=== PATIENT | female | born 1960 ===

== ENCOUNTER 2018-06-16 08:28 | Observation (INO) | payer SELFPAY ==
[2018-06-16] MEDS ORDERED: Albuterol/Ipratropium NEB.SOL* Albuterol 2.5 MG/Ipratropium 0.5 MG 3 ML INH ONE (08:53)
[2018-06-16] MEDS ORDERED: Dexamethasone IV* 8 MG in NS 0.9% 50 ML* 50 ML IVPB ONE ×2 (08:55→10:00)
[2018-06-16] MEDS ORDERED: Dexamethasone IV* 8 MG in NS 0.9% 50 ML* 50 ML IVPB SCH (09:00)
--- NOTE | 2018-06-16 09:03 | ED ---
HPI Chest Pain - HPI Summary HPI Summary: Pt is a 57 y/o female who presents to [facility] c/o SOB and CP since 2 AM this morning. History is given by the patients sister, since her [place] is limited. As per sister, she feels SOB, chest tightness, chest pain, and dry cough. Her pain is described as an 8/10 in severity. In the past few days, she has also c/o intermittent fever and pressure in the back of her head. Pt states that her inhaler is not helping her symptoms. Pt currently has cancer of her left breast, and states it feels like her pain has moved to her nipple. She is taking chemotherapy pills, and states that this chest pain feels different than her normal breast pain. Pt was recently on antibiotics for a URI. PMHx CHF, DM, and stage 4 kidney disease. She denies any PMHx of blood clots. Her sister states her blood sugar has been good the past few days. - History of Current Complaint Chief Complaint: EDShortnessOfBreath Time Seen by Provider: 06/16/18 08:39 Hx Obtained From: Patient, Family/Diamond Driller Helper - Sister Onset/Duration: Started Hours Ago - 2 AM, Still Present Timing: Constant Current Severity: Severe Pain Intensity: 8 Pain Scale Used: 0-10 Numeric Chest Pain Location: Diffuse Chest Pain Radiates: No Character: Tightness Aggravating Factor(s): Nothing Alleviating Factor(s): Nothing Associated Signs and Symptoms: Positive: Chest Pain, Shortness of Breath, Nonproductive Cough - Allergy/Home Medications Allergies/Adverse Reactions: Allergies Allergy/AdvReac Type Severity Reaction Status Date / Time Penicillins Allergy Rash Verified 06/16/18 08:35 iodine Allergy Rash And Uncoded 06/16/18 08:34 Itching morphine Allergy Anxiety Uncoded 06/16/18 08:34 Home Medications: Home Medications ALPRAZolam TAB* [Xanax TAB*] 0.25 mg PO DAILY 06/16/18 [History Confirmed ] Aspirin EC TAB* [Ecotrin EC Low Dose 81 MG*] 81 mg PO DAILY 06/16/18 [History Confirmed 06/16/18] Atorvastatin* [Lipitor*] 40 mg PO DAILY 06/16/18 [History Confirmed 06/16/18] Carvedilol TAB* [Coreg TAB*] 12.5 mg PO BID WITH MEALS 06/16/18 [History Confirmed 06/16/18] Ergocalciferol CAP* [Drisdol CAP*] 50,000 unit PO DAILY 06/16/18 [History Confirmed 06/16/18] Furosemide TAB* [Lasix TAB*] 40 mg PO DAILY 06/16/18 [History Confirmed 06/16/18 ] Letrozole (NF) [Femara (NF)] 2.5 mg PO DAILY 06/16/18 [History Confirmed ] Losartan TAB* [Cozaar TAB*] 25 mg PO DAILY 06/16/18 [History Confirmed 06/16/18] amLODIPine TAB* [Norvasc 5 mg TAB*] 5 mg PO DAILY 06/16/18 [History Confirmed ] oxyCODONE/Acetamin 5/325 MG* [Percocet 5/325 TAB*] 1 tab PO Q6H PRN 06/16/18 [ History Confirmed 06/16/18] traMADol TAB* [Ultram*] 50 mg PO DAILY PRN 06/16/18 [History Confirmed 06/16/18] PMH/Surg Hx/FS Hx/Imm Hx Endocrine/Hematology History: Reports: Hx Diabetes, Other Endocrine/ Hematological Disorders - NEGATIVE: blood clot Cardiovascular History: Reports: Hx Congestive Heart Failure History: Reports: Hx Renal Disease - Stage 4 - Cancer History Cancer Type, Location and Year: Breast cancer (left) Infectious Disease History: No Infectious Disease History: Denies: Traveled Outside the [place] in Last 30 Days - Family History Known Family History: Positive: Other - Cancer - breast, lung, pancreatic - Social History Alcohol Use: Rare Hx Substance Use: No Substance Use Type: Reports: None Hx Tobacco Use: No Smoking Status (MU): Never Smoked Tobacco Review of Systems Positive: Fever - Intermittent, Other - Pressure in back of head Positive: Chest Pain, Other - Chest tightness Positive: Shortness Of Breath, Cough - Dry Positive: Other - Left nipple pain All Other Systems Reviewed And Are Negative: Yes Physical Exam - Summary Physical Exam Summary: GENERAL: Patient is a well developed and nourished F who is lying uncomfortable in the stretcher. Patient is not in any acute respiratory distress. HEAD AND FACE: Normocephalic EYES: PERRLA, EOMI x 2. EARS: Hearing grossly intact. MOUTH: Oropharynx within normal limits. NECK: Supple, trachea is midline, no adenopathy, no JVD, no carotid bruit. CHEST: Symmetric, no tenderness at palpation LUNGS: Mild diffuse expiratory wheezes. Decreased breath sounds in bilateral bases, right > left. CVS: Regular rate and rhythm, S1 and S2 present, no murmurs or gallops appreciated. ABDOMEN: Soft, non-tender. Bowel sounds are normal. No abdominal abnormal pulsations. EXTREMITIES: Full ROM in all major joints, no cyanosis or clubbing. 2+ bilateral pitting edema. NEURO: Alert and oriented x 3. No acute neurological deficits. Speech is normal and follows commands. SKIN: Dry and warm Triage Information Reviewed: Yes Vital Signs On Initial Exam: Initial Vitals Temp Pulse Resp BP Pulse Ox 98.2 F 74 20 174/73 98 06/16/18 08:30 06/16/18 08:30 06/16/18 08:30 06/16/18 08:30 06/16/18 08:30 Vital Signs Reviewed: Yes Diagnostics - Vital Signs Vital Signs Temp Pulse Resp BP Pulse Ox 06/16/18 08:30 98.2 F 74 20 174/73 98 - Laboratory Result Diagrams: 06/16/18 09:00 06/16/18 09:00 Lab Statement: Any lab studies that have been ordered have been reviewed, and results considered in the medical decision making process. - Radiology CXR Xray Interpretation: No Acute Changes - NO ACTIVE CARDIOPULMONARY DISEASE IS NOTED. ED physician reviewed radiology report. Radiology Interpretation Completed By: Radiologist Lung Scan VQ NM Xray Interpretation: No Acute Changes - VERY LOW PROBABILITY VQ SCAN. ED physician reviewed radiology report. Radiology Interpretation Completed By: Radiologist - Ultrasound No standard instances Ultrasound Interpretation: No Acute Changes - Venous Doppler Study: NO RIGHT LOWER EXTREMITY DEEP VEIN THROMBOSIS. NO LEFT LOWER EXTREMITY DEEP VEIN THROMBOSIS. ED physician reviewed radiology report. Ultrasound Interpretation Completed By: Radiologist - EKG 09:02 Cardiac Rate: NL - 64 bpm EKG Rhythm: Sinus Rhythm ST Segment: Normal EKG Interpretation: No T-wave changes Chest Pain Course/Dx - Course Course Of Treatment: Pt is a 57 y/o female who presents to [facility] c/o SOB and CP since 2 AM this morning. History is given by the patients sister, since her [place] is limited. As per sister, she feels SOB, chest tightness, chest pain, and dry cough. Her pain is described as an 8/10 in severity. In the past few days, she has also c/o intermittent fever and pressure in the back of her head. Pt states that her inhaler is not helping her symptoms. Pt currently has cancer of her left breast, and states it feels like her pain has moved to her nipple. She is taking chemotherapy pills, and states that this chest pain feels different than her normal breast pain. Pt was recently on antibiotics for a URI. A physical exam revealed Mild diffuse expiratory wheezes. Decreased breath sounds in bilateral bases, right > left. 2+ bilateral pitting edema. A CXR was negative. A lung scan VQ NM was negative. A venous Doppler study was negative. An EKG revealed normal rate of 64 bpm and normal rhythm. Final dx is chest pain. Case discussed with Dr. Noe. I discussed results with patient. The patient agrees with this plan. - Diagnoses Provider Diagnoses: Chest pain - Provider Notifications Discussed Care Of Patient With: Nathaniel Noe Time Discussed With Above Provider: 12:30 Instructed by Provider To: Admit As Inpatient Discharge - Sign-Out/Discharge Documenting (check all that apply): Patient Departure - Admit - Discharge Plan Condition: Stable Disposition: ADMITTED TO [facility] - Attestation Statements Document Initiated by Scribe: Yes Documenting Scribe: Natalie Castorena Provider For Whom Scribe is Documenting (Include Credential): Brooklyn Candelario MD Scribe Attestation: Natalie Quiroz, scribed for Brooklyn Candelario MD on 06/16/18 at 1529.
[2018-06-16 09:06] LABS: ABS Basophils 0.1 10^3/ul (0-0.2); ABS Eosinophils 0.4 10^3/ul (0-0.6); ABS Lymphocytes 1.7 10^3/ul (1.0-4.8); ABS Monocytes 0.7 10^3/ul (0-0.8); ABS Neutrophils 6.6 10^3/ul (1.5-7.7); ABS Nucleated RBC 0 10^3/ul; Eosinophil % 4.2 % (0-6); Hematocrit 27 % (35-47); Hemoglobin 9.4 g/dl (12.0-16.0); Lymphocyte % 18.3 % (25-47); Mean Corpuscular HGB Conc 34 g/dl (31-36); Mean Corpuscular Hemoglobin 30 pg (27-31); Mean Corpuscular Volume 88 fL (80-97); Nucleated Red Blood Cells % 0; Platelet Count 299 10^3/ul (150-450); Red Cell Distribution Width 13 % (10.5-15); White Blood Count 9.6 10^3/ul (3.5-10.8)
[2018-06-16] MEDS ORDERED: Dexamethasone IV* 4 MG/ML 1 ML (4 MG) ONE (09:09)
[2018-06-16 09:17] LABS: INR 0.9 (0.77-1.02)
[2018-06-16 09:24] LABS: EGFR Non-African American 27.4 (>60)
--- NOTE | 2018-06-16 09:46 | RAD ---
HISTORY: eval for dvt COMPARISONS: None relevant TECHNIQUE: Multiple transverse and longitudinal ultrasound images were obtained of the bilateral lower extremities from the level of the common femoral vein inferiorly through to the infrapopliteal veins using grayscale, color Doppler, and spectral Doppler imaging with and without compression and with augmentation. FINDINGS: VEINS: The venous system of the bilateral lower extremities is compressible throughout its course, with normal flow on color Doppler imaging and normal response to augmentation on spectral Doppler imaging. SOFT TISSUES: Unremarkable. OTHER FINDINGS: None. IMPRESSION: NO RIGHT LOWER EXTREMITY DEEP VEIN THROMBOSIS. NO LEFT LOWER EXTREMITY DEEP VEIN THROMBOSIS
--- NOTE | 2018-06-16 10:02 | RAD ---
Indication: Shortness of breath. Single frontal view of the chest performed at 0948 hours was reviewed. No prior study is available for comparison. No mediastinal shift is noted. Heart is of normal size and configuration. Lung feltcher appear clear. IMPRESSION: NO ACTIVE CARDIOPULMONARY DISEASE IS NOTED.
[2018-06-16 10:07] LABS: Urine Appearance Clear; Urine Blood Negative (Negative); Urine Color Straw; Urine Ketones Negative (Negative); Urine Protein 2+(100 mg/dL) (Negative); Urine Red Blood Cell Trace(0-2/hpf) (Absent); Urine Specific Gravity 1.006 (1.010-1.030); Urine Urobilinogen Negative (Negative); Urine White Blood Cell 2+(11-20/hpf) (Absent)
--- NOTE | 2018-06-16 11:09 | RAD ---
HISTORY: Chest pain COMPARISON: Chest x-ray dated June 16, 2018 TECHNIQUE: Pulmonary ventilation/perfusion scintigraphy was performed with dynamic cine images and multiple planar images. DOSE: Ventilation: Xenon-133 8.65 millicuries, administered at 10:50 AM on June 16, 2018 Perfusion: Technetium 99m microaggregated albumin 6.6 millicuries, administered at 10:50 AM on June 16, 2018 FINDINGS: Ventilation: Homogeneous ventilation. Perfusion: Homogeneous perfusion without mass defect. IMPRESSION: VERY LOW PROBABILITY VQ SCAN CPT II Codes: 3570F
[2018-06-16] MEDS ORDERED: Nitroglycerin TAB 0.4 MG* 0.4 MG TAB SL ONE (12:12)
[2018-06-16] MEDS ORDERED: Aspirin 81 mg CHEW TAB* 81 MG TAB.CHEW PO ONE (12:12)
[2018-06-16] MEDS ORDERED: Ondansetron INJ* 2 MG/ML VIAL IV PRN (13:01)
[2018-06-16] MEDS ORDERED: Dextrose 50% Syringe 50 ML* 25 GM/50 ML SYRINGE IV PUSH PRN (13:01)
[2018-06-16] MEDS ORDERED: Furosemide IV* 10 MG/ML VIAL (40 MG) IV SLOW PU ONE (13:01)
[2018-06-16] MEDS ORDERED: traMADol TAB* 50 MG PO PRN (13:05)
--- NOTE | 2018-06-16 13:41 | RAD ---
Indication: Headache. CT of the brain was performed without IV contrast. Ventricular structures are midline. No midline shift is noted. The extra-axial spaces are unremarkable. There is no evidence of intracranial mass or hemorrhage. No other high or low density lesions are identified. Mastoid air cells and paranasal sinuses are unremarkable. IMPRESSION: No intracranial mass or hemorrhage is noted.
--- NOTE | 2018-06-16 14:04 | RAD ---
HISTORY: neck pain COMPARISONS: None TECHNIQUE: Multiple contiguous axial CT scans were obtained of the cervical spine without intravenous contrast, with coronal and sagittal multiplanar reformations. FINDINGS: BRAIN: The visualized brain is unremarkable CENTRAL CANAL: Evaluation of the central canal is limited on CT technique; however, there is no obvious canalicular mass or epidural hemorrhage. ALIGNMENT: The alignment is normal, without subluxation or dislocation. VERTEBRAL BODIES: There is anterolateral marginal osteophyte formation most pronounced at C5-C6 and C6-C7. JOINTS: There is uncovertebral hypertrophy at C5-C6. MUSCULATURE: Unremarkable INTERVERTEBRAL DISCS: There is diffuse loss of intervertebral disc height. AXIAL IMAGES: C2-C3: There is no osseous neural foraminal narrowing or central canal stenosis. C3-C4: There is no osseous neural foraminal narrowing or central canal stenosis. C4-C5: There is no osseous neural foraminal narrowing or central canal stenosis. C5-C6: There is no osseous neural foraminal narrowing or central canal stenosis. C6-C7: There is no osseous neural foraminal narrowing or central canal stenosis. C7-T1: There is no osseous neural foraminal narrowing or central canal stenosis. SOFT TISSUES: The visualized soft tissues of the neck are unremarkable. The prevertebral fat stripe is preserved. OTHER: There is a right pleural effusion. IMPRESSION: 1. MILD DEGENERATIVE DISC DISEASE AND OSTEOARTHRITIS. 2. NO OSSEOUS NEURAL FORAMINAL NARROWING OR CENTRAL CANAL STENOSIS. 3. RIGHT PLEURAL EFFUSION.
[2018-06-16] MEDS: Nitroglycerin 2% OINT* 1 GM PAK TOPICAL SCH (16:08)
[2018-06-16] MEDS: Acetaminophen TAB* 325 MG PO PRN (16:10)
[2018-06-16] MEDS: Insulin LISPRO* 1 UNITS UNIT SUBCUT SCH (17:35)
[2018-06-16] MEDS: Carvedilol TAB* 6.25 MG PO SCH (17:38)
--- NOTE | 2018-06-16 17:51 | RAD ---
CPT II: CPT II Codes: 3100F Indication: Indication for exam is unclear Duplex Doppler sonography of the carotid arteries was performed. The right common carotid artery demonstrates no intimal wall thickening. Minimal plaque is noted in the carotid bulb. Peak systolic velocity of the distal right common carotid artery is 121 cm/s. The systolic velocity of the right proximal internal carotid artery is 98 cm/s. ICA/CC ratio 0.81. Right vertebral artery demonstrates antegrade flow. Left common carotid artery demonstrates no intimal wall thickening. Plaque is noted in the carotid bulb. Peak systolic velocity of the distal left common carotid artery is 100 cm/s. Peak systolic velocity of the left internal carotid artery is 112 cm/s. The ICA/CC ratio is 1.1. Left vertebral artery demonstrates antegrade flow. IMPRESSION: Less than 50% stenosis of both internal carotid arteries. No hemodynamically significant stenosis is noted.
--- NOTE | 2018-06-16 17:58 | ECHO ---
Patient: RUTH ANN BUNDY Rec#: [id number] : 1960 Date: 06/16/2018 Age: 57y Height: 150 cm / 59.1 in Weight: 74 kg / 163.1 lbs Sex: F BSA: 1.69 Room#: [facility] Admit Date#: 06/16/2018 Type: Inpatient Referring: Sohail Blanchard NP Reading: Tiago Glez MD Wire Winder: Radha Dumont,ROSIECS,RDMS CC: BOGDAN ALVA NP Transthoracic Echocardiogram Indication: CHF BP: 166/74 HR: 74 Rhythm: NSR Findings History: Breast cancer, chemptherapy pills, CHF, CKD, DM Technical Comments: The study quality is good. Left Ventricle: The left ventricular chamber size is normal. There is no left ventricular hypertrophy. There is a prominent septal knuckle. Global left ventricular wall motion and contractility are within normal limits. There is normal left ventricular systolic function. The estimated ejection fraction is 55-60%. Abnormal left ventricular diastolic function is observed. Left Atrium: The left atrium is mildly dilated. Right Ventricle: The right ventricular chamber size and systolic function are within normal limits. Right Atrium: The right atrial cavity size is normal. Aortic Valve: The aortic valve is trileaflet. The aortic valve leaflets are mildly thickened. Systolic excursion of the aortic valve is normal. There is no evidence of aortic regurgitation. There is no evidence of aortic stenosis. Mitral Valve: The mitral valve leaflets are mildly thickened. There is trace to mild mitral regurgitation. There is no evidence of mitral stenosis. Tricuspid Valve: The tricuspid valve leaflets are normal. There is trace tricuspid regurgitation. Unable to estimate the right ventricular systolic pressure. Pulmonic Valve: The pulmonic valve appears normal. There is no evidence of pulmonic regurgitation. Pericardium: There is no significant pericardial effusion. Aorta: The aortic root appears normal. There is no dilatation of the aortic arch. Pulmonary Artery: The main pulmonary artery appears normal. Venous: The inferior vena cava appears normal in size. There is a greater than 50% respiratory change in the inferior vena cava dimension. Summary: There was not any prior study for comparison. Conclusions Global left ventricular wall motion and contractility are within normal limits. There is normal left ventricular systolic function. The estimated ejection fraction is 55-60%. The right ventricular chamber size and systolic function are within normal limits. Systolic excursion of the aortic valve is normal. There is no evidence of aortic regurgitation. There is trace to mild mitral regurgitation. There is trace tricuspid regurgitation. Unable to estimate the right ventricular systolic pressure. There is no significant pericardial effusion. Measurements Name Value Normal Range RVIDd (AP) 2D 2.8 cm (0.9 - 2.6) RVDdMajor (2D) 2.1 cm (2.2 - 4.4) RAd ISD 4CH 4.8 cm (3.4 - 4.9) RA (A4C)W 3.1 cm (2.9 - 4.6) IVSd (2D) 1.1 cm (0.6 - 1) LVPWd (2D) 0.8 cm (0.6 - 1) LVIDd (2D) 4.9 cm (3.6 - 5.4) LVIDs (2D) 3.5 cm - LV FS (2D) 29 % (25 - 45) Aortic Annulus 2 cm (1.4 - 2.6) Ao root diameter (2D) 2.1 cm (2.1 - 3.5) Ascending Ao 2.7 cm (2.1 - 3.4) Aortic arch 2.4 cm (1.8 - 3.4) LA dimension (AP) 2D 4.2 cm (2.3 - 3.8) LAd ISD 4CH 5.1 cm (2.9 - 5.3) LA ISD 4CH W 4.4 cm (2.5 - 4.5) Name Value Normal Range LA ESV BP (A/L) index 36 ml/m2 - Name Value Normal Range MV E-wave Vmax 1 m/sec - MV deceleration time 180 msec - MV A-wave Vmax 0.8 m/sec - MV E:A ratio 1.2 ratio - P. vein S-wave Vmax 0.7 m/sec - P. vein D-wave Vmax 0.5 m/sec - P. vein S:D Vmax ratio 1.3 ratio - P. vein A-wave duration 103 msec - LV septal e' Vmax 0.07 m/sec - LV lateral e' Vmax 0.07 m/sec - LV E:e' septal ratio 15 ratio - LV E:e' lateral ratio 15 ratio - Name Value Normal Range AV Vmax 1.4 m/sec - AV VTI 31 cm - AV peak gradient 8 mmHg - AV mean gradient 5 mmHg - LVOT Vmax 1.1 m/sec - LVOT VTI 24 cm - LVOT peak gradient 5 mmHg - LVOT mean gradient 2 mmHg - PARI Vmax 0.8 m/sec - Name Value Normal Range IVC diameter 2.1 cm - Name Value Normal Range PV Vmax 0.9 m/sec - PV peak gradient 3.2 mmHg -
--- NOTE | 2018-06-16 19:55 | HP ---
CC: Martell Gutiérrez NP; Dr. Glez * HISTORY AND PHYSICAL: DATE OF ADMISSION: 06/16/18 PRIMARY CARE PROVIDER: Martell Gutiérrez NP ATTENDING PHYSICIAN: Dr. Noe.* (DICTATED BY MANDY CRESPO NP) CHIEF COMPLAINT: 1. Shortness of breath. 2. Chest pain. 3. Neck pain. HISTORY OF PRESENT ILLNESS: Ms. Blevins is a 57-year-old female patient. She is Micronesian speaking only. She carries a history of breast cancer, history of hypertension, diabetes, history of CHF, CAD, CKD stage 4, and history of cardiomyopathy. She comes into the ED today stating that since 2:30 this morning she has had constant tightness pressure squeezing in her chest. This has been going on since 2:30 this morning and it has been constant, unrelenting. She does state that she was recently relocated about a month ago from [place]. She says that she was down there. She had a heart catheterization because she failed a stress test. She has coronary artery disease and she also says that she has a low percentage of her heart; she says it is 38% to 40%. I assume this means her ejection fraction. She says that over the last couple of nights, she has had swelling in her legs in addition to this she says she really cannot lay flat. She says that prior to coming up here from [place], they reduced her Lasix from twice a day to once a day because they were concerned about her kidney function. She says that she has been drinking an ample amount of water. She really cannot quantify how much, but she says that she has just been more short of breath, having chest discomfort. She has not been feeling very well. In addition to this, she is complaining of a pressure in the back of her neck. She describes it as a pain. There has been no trauma, no falls. She denies any headaches, visual changes. Denies any pain, shooting down the arms, no weakness to the arms. She is denies having any weakness in her legs or falling, but she is complaining of having this pressure in the back of the neck. She says her biggest concern was the breathing. She says she has been having dyspnea on exertion. There has been no chest pain with exertion. She has a pain, which has been going constant. She says that it is better now than what was when she came in. She does say that she recently was treated for URI with Dr. Culp. She was put on azithromycin. She says she is no longer coughing. She denies having any abdominal discomfort, any nausea, vomiting, or diarrhea. There was concern though because of the chest pain, her history, and her shortness of breath, we were asked to evaluate for admission. PAST MEDICAL HISTORY: Significant for: 1. Breast cancer. 2. Hypertension. 3. History of CHF. Again, I think the last EF that we know was right at according to the patient. 4. She has a history of diabetes, CAD, CKD as well. PAST SURGICAL HISTORY: 1. She has had a laparoscopic cholecystectomy. 2. She has had a heart catheterization with no stents. According to her recollection, she was told that she had a blockage in her descending artery. I assume that she means the LAD that was unamenable to intervention. We are getting records. 3. She has a history of as well. MEDICATIONS: Home medications according to the bottles that she brought in include: 1. Tramadol 50 mg p.o. daily as needed. 2. Percocet 1 tablet every 6 hours as needed. 3. Amlodipine 5 mg p.o. daily. 4. Cozaar 25 mg daily. 5. mg daily. 6. Lasix 40 mg daily. 7. Ergocalciferol 50,000 units p.o. daily. 8. Coreg 12.5 mg p.o. b.i.d. with meals. 9. Lipitor 40 mg daily. 10. Aspirin 81 mg daily. 11. Xanax 0.25 mg p.o. daily. ALLERGIES TO MEDICATIONS: Include PENICILLIN, IODINE, and MORPHINE. FAMILY HISTORY: Mother had a history of CAD. Father had an UT and pancreatic cancer. SOCIAL HISTORY: She lives with her sister. She does not smoke. She does not drink. Surrogate decision maker is her sister. REVIEW OF SYSTEMS: There is no documented fever. She denies having any significant weight change, but she is admitting having lower extremity swelling. She denies having any double vision. There is no ear discharge. She denies having any rhinorrhea. No sore throat. No thyroid enlargement. She did admit to having chest pain. There is no orthopnea. There is no nocturnal dyspnea. There was no abdominal pain. No nausea, no vomiting, no dysuria, no frequency, no seizure, no loss of consciousness, no pruritus and no skin ulcerations. Review of 14 systems completed, all others negative. PHYSICAL EXAMINATION GENERAL: At this time, Ms. Blevins is a 57-year-old female patient. She is obese, sitting in the ED stretcher. She does not appear to be in any acute distress. VITAL SIGNS: Blood pressure 157/78, pulse 62, respirations 18, O2 sat 95%, temperature 98.2. HEENT: Head, atraumatic and normocephalic. Eyes: EOMs are intact. Her sclerae are anicteric and not pale. Throat: Oral mucosa appeared to be moist. No oropharyngeal erythema. NECK: Supple. LUNGS: She did have crackles in the bases bilaterally. She had equal diaphragmatic expansion. HEART: Sounds S1 and S2. She had regular rate and rhythm. She had no murmurs , rubs, or gallops. ABDOMEN: Soft, flat, nontender. Bowel sounds are present. EXTREMITIES: Pulses were 2+ throughout. She did have +2 pitting edema bilaterally in the pedal area. She had 5/5 strength. NEUROLOGIC: She is awake, alert. She is oriented x3. Her tongue is midline. Her assistant designer were equal. She had gross focal deficits. SKIN: Intact. LABORATORY DATA: Labs today revealed WBC of 9.6, RBC of 3.10, hemoglobin 9.4, hematocrit 27, and platelet count of 299. The INR was 0.90, PTT was 32.0. Sodium was 139, potassium was 5.0, chloride of 105, bicarb 29, BUN was 37, creatinine of 1.88 that was similar to previous, glucose 137, lactate 0.8, calcium 9.3. Total bili 0.3, AST 26, ALT 36, alk phos 131. Troponin 0.01 and repeat troponin was 0.01. BNP of 361. Albumin of 3.3. Urine showed low specific gravity, 2+ protein, 1+ leukocyte esterase, 2+ wbc. She had multiple imaging here in the ED starting out with the chest x-ray, impression, no active cardiopulmonary disease. She had an EKG obtained today, which does show a normal sinus rhythm rate of 64. No ST elevations or T-wave inversions. No previous for comparison. She had a venous Doppler study obtained today as well, which showed no DVT of bilateral lower extremities. She had a V/Q scan as well today, which revealed very low probability V/Q scan. Old medical records were reviewed. ASSESSMENT AND PLAN: Mrs. Blevins is a 57-year-old female patient with extensive cardiac history coming into the ED today with complaints of worsening chest pain and shortness of breath. We were asked to evaluate for admission. She will be admitted under observation status for: 1. Chest pain. The chest pain at this point, she does not have any ischemic changes. It is atypical in the sense that it has been constant. I questioned if she is having some demand ischemia from her being in a little bit of heart failure. Pulmonary embolism has been ruled out. My plan will be to give one more troponin repeat and echo here, get the records from her global program director in [place]. I have requested that. In addition to this, we will give her an extra dose of Lasix. She is on maximum medical therapy. I am also going to add some nitro paste as I do not think this will hurt particularly in the setting of congestive heart failure. We will continue her Lasix give her an extra dose IV today. Continue her medication as prescribed and we will continue to follow. 2. Shortness of breath. I suspect this is probably from a little bit of fluid overload. She had recent change in Lasix. In addition of this, she has been drinking ample amounts of water. I will give her one dose of IV Lasix, check daily weights, get an echo, get records from Cardiology and have our Cardiology group see her. 3. Chronic kidney disease. Creatinine is stable. We will monitor in the setting of diuresing her. 4. Neck pain and headache. Etiology is unclear. She does have many risk factors. This has been going for 2 days. She says that it comes and goes. She describes it as a pressure and it is mostly in the back of her neck. There has been no recent fever. She denies any altered mental status. I think meningitis is less likely. She has no white count here. My plan will be to get carotid ultrasound just to make sure the carotids are stable. I do not think this is a dissection based on her history, but I would like to rule this out. We will check a CT of cervical spine and brain as well and we will continue to follow. 5. Hypertension. Continue meds as prescribed. 6. Diabetes. I put her on a lispro sliding scale. 7. History of congestive heart failure. Again, I think she is in a little bit failure right now. Give her one-time dose of IV Lasix, daily weights, echo, Cardiology consult. 8. Coronary artery disease. She is on aspirin, statin. She is on a beta charline. We will continue with this. We may need to consider adding some nitrates. She does say to me that she had a blockage, I am assuming her LAD that was unamenable to stenting according to her. I want to get records to confirm this and I am getting help from our Cardiology group. 9. DVT prophylaxis. She is high risk. I will place her on heparin subcu. 10. Code status: She is a full code. 11. Fluids, electrolytes, and nutrition. She can have a heart-healthy diet. TIME SPENT: Time spent on the admission was 60 minutes, greater than half the time was spent [id number] with the patient obtaining my history and physical; other half time was spent going over the plan of care with the patient and implementing plan of care. I did discuss the plan of care with my attending, Dr. Noe; he is in agreement. MANDY CRESPO NP [id number]/CPS #: [id number] CRISTY
[2018-06-17 06:01] LABS: ABS Basophils 0 10^3/ul (0-0.2); ABS Eosinophils 0 10^3/ul (0-0.6); ABS Lymphocytes 0.9 10^3/ul (1.0-4.8); ABS Monocytes 0.4 10^3/ul (0-0.8); ABS Neutrophils 9.3 10^3/ul (1.5-7.7); ABS Nucleated RBC 0 10^3/ul; Eosinophil % 0 % (0-6); Hematocrit 25 % (35-47); Hemoglobin 8.6 g/dl (12.0-16.0); Lymphocyte % 8.3 % (25-47); Mean Corpuscular HGB Conc 34 g/dl (31-36); Mean Corpuscular Hemoglobin 30 pg (27-31); Mean Corpuscular Volume 88 fL (80-97); Mean Platelet Volume 8.1 um3 (7.4-10.4); Nucleated Red Blood Cells % 0; Platelet Count 285 10^3/ul (150-450); Red Blood Count 2.87 10^6/ul (4.00-5.40); Red Cell Distribution Width 13 % (10.5-15); White Blood Count 10.6 10^3/ul (3.5-10.8)
[2018-06-17 06:16] LABS: EGFR Non-African American 26.1 (>60)
[2018-06-17] MEDS ORDERED: ALPRAZolam TAB* 0.25 MG PO PRN (08:49)
[2018-06-17] MEDS: Insulin LISPRO* 1 UNITS UNIT SUBCUT SCH (08:56)
[2018-06-17] MEDS: Acetaminophen TAB* 325 MG PO PRN (08:58)
[2018-06-17 09:00] VITALS: BP 161/70
[2018-06-17] MEDS ORDERED: Atorvastatin* 40 MG TAB PO SCH (09:00)
[2018-06-17] MEDS ORDERED: Aspirin EC TAB* 81 MG TAB.EC PO SCH (09:00)
[2018-06-17] MEDS ORDERED: amLODIPine TAB* 5 MG PO SCH (09:00)
[2018-06-17] MEDS ORDERED: Furosemide TAB* 40 MG PO SCH (09:00)
[2018-06-17] MEDS ORDERED: ALPRAZolam TAB* 0.25 MG PO SCH (09:00)
[2018-06-17] MEDS: Carvedilol TAB* 6.25 MG PO SCH (09:00)
[2018-06-17] MEDS ORDERED: CMC: Letrozole (NF) 2.5 MG TAB PO SCH (09:00)
[2018-06-17] MEDS ORDERED: Losartan TAB* 25 MG PO SCH (09:00)
[2018-06-17] MEDS ORDERED: Insulin GLARGINE(*) 1 UNITS UNIT SUBCUT ONE (09:10)
[2018-06-17] MEDS: Nitroglycerin 2% OINT* 1 GM PAK TOPICAL SCH (09:43)
--- NOTE | 2018-06-17 11:37 | CONS ---
CC: Dr. Judi Culp; Dr. Reginaldo Umaña * CARDIOLOGY CONSULTATION: DATE OF CONSULT: 06/17/18 INDICATION FOR CONSULTATION: Shortness of breath. HISTORY OF PRESENT ILLNESS: The patient is a 57-year-old female with a history of renal insufficiency, diabetes, heart failure with preserved ejection fraction , coronary artery disease, was admitted to the hospital with shortness of breath. The patient just recently moved from the [facility] and is setting up appropriate care here in the [facility]. The patient is scheduled to see Dr. Reginaldo Umaña on 07/01/18. The patient came to the hospital because of shortness of breath. She cannot describe any other significant symptoms other than feeling that she is short of breath when walking around her house. The patient does also report some severe neck pain that may be contributing to some of her shortness of breath because it is very painful for her to ambulate. The patient was admitted to the hospital. She ruled out for myocardial infarction. Her echocardiogram showed normal LV size and systolic function and normal valvular studies. The patient does have some renal insufficiency with creatinine of 1.9. PAST CARDIAC HISTORY: The patient had a cardiac evaluation in December of 2017 when she was in [place]. At that time, she underwent a chemical nuclear stress test. During the stress test, she had typical angina. She did have [address] segment depression. Her nuclear images were read as mild ischemia to the apex and anterolateral wall. On 01/01/18, the patient underwent cardiac catheterization. Her cardiac catheterization showed normal LV function. Left main artery was normal. Left anterior descending artery had a proximal 40%, mid 60% stenosis, and distal 80% stenosis. Her first diagonal vessel had an ostial 50% stenosis. Her left circumflex artery was normal. Her right coronary artery had a proximal 50% stenosis and a mid 40% stenosis. The patient did have fractional flow reserve evaluation of her LAD. Her distal LAD did show a fractional flow reserve of 0.72, but it was diffuse throughout the LAD. Fractional flow reserve of the right coronary artery was 0.98 and normal. The patient has also been diagnosed with invasive ductal cancer and is requiring bilateral mastectomy in the near future. PAST SURGICAL HISTORY: Laparoscopic cholecystectomy, cardiac catheterization, C - section. OUTPATIENT MEDICATIONS: 1. Tramadol 50 mg a day. 2. Percocet as directed. 3. Amlodipine 5 mg a day. 4. Cozaar 25 mg a day. 5. Lasix 40 mg a day. 6. Coreg 12.5 mg b.i.d. 7. Lipitor 40 mg a day. 8. Aspirin 81 mg a day. 9. Xanax as directed. ALLERGIES: To PENICILLIN and MORPHINE. FAMILY HISTORY: Mother had a history of coronary artery disease. Father of pancreatic cancer. SOCIAL HISTORY: She lives with her sister. She denies tobacco or alcohol use. Again, she recently moved to the [facility]. PHYSICAL EXAM: Height is 4 feet 11 inches, weight is 178 pounds, temperature 98.4, heart rate is 81, blood pressure 145/59, respiratory rate of 18, oxygen saturation 97% on room air. Sclerae anicteric. Oropharynx is pink without erythema. Carotids are 2+ without bruits. JVD is normal. Thyroid is normal. Cardiac Exam: S1, S2 without any murmurs, rubs, or gallops. Lungs are clear to auscultation. Extremities: Showed no edema. She has 2+ pulses throughout. The patient is awake, alert, and oriented. She moves all 4 extremities equally. DIAGNOSTIC STUDIES/LAB DATA: Laboratory studies this morning white count 10.6, hemoglobin 8.6, hematocrit 25, platelet count 285. Chemistries within normal limits. BUN 49, creatinine 1.9, which is at her baseline. Troponins are negative x2. AST and ALT are normal. BNP 361. Again, her echocardiogram showed normal LV size and systolic function, mild left ventricular hypertrophy. No valvular abnormalities. IMPRESSION: This is a 57-year-old female who was admitted to the hospital with shortness of breath. It is unclear what the cause of her shortness of breath as her V/Q scan was negative for pulmonary emboli. Carotid ultrasound was negative, less than 50% stenosis. CT of the cervical spine was normal. At this point, I think the patient is on reasonable medical therapy for her heart failure with preserved ejection fraction. She ruled out for myocardial infarction. Her chest x-ray was not consistent with congestive heart failure. The patient will follow up with Dr. Umaña for evaluation prior to her breast cancer surgery. The case was discussed with Dr. Stringer. [id number]/[facility] #: [id number] [facility] CENTERLefty
--- NOTE | 2018-06-17 12:02 | DS ---
CC: Dr. Culp; Dr. Martell Gutiérrez; Dr. Reginaldo Umaña; Dr. Cesar Hyde DISCHARGE SUMMARY: DATE OF ADMISSION: DATE OF DISCHARGE: 06/17/18 HOSPITAL COURSE: This 57-year-old woman presented with shortness of breath, chest pain, and neck galen n. The history is detailed in the admission note. She recently moved here from [place]. She has appointments with a primary care doctor, a cardiologis t, and a spanish teacher. She has not seen her primary care doctor yet. She did not run out of any med icaVinPerfect, however, she did notice her feet had swollen up and she was more short of breath. Accordin g to her and her sister, she follows her diet well. She checks her blood sugar once a day. She usua lly gets in the 50s or 60s. The patient was given intravenous furosemide. She had a good diuresis. Her edema resolved. She was no longer short of breath. Her O2 saturations on room air was 97 to 98%. She appeared quite well. I note her BNP was elevated on admission. Four troponin levels were drawn and all were within normal limits. Echocardiogram was done and showed normal left ventricular systolic function. The patient was told to weigh herself everyday and write down the weights and if her weight is more than 3 pounds of her baseline to double her furosemide until her weight is back down to her baseline. She will get a BMP in three days. FINAL DIAGNOSES: 1. Acute on chronic diastolic congestive heart failure. 2. Chronic kidney disease. 3. Diabetes. DISCHARGE MEDICATIONS: 1. Furosemide 40 to 80 mg daily depending on weight as above. 2. Alprazolam 0.25 mg p.r.n. daily. 3. Tramadol 50 mg daily p.r.n. 4. Amlodipine 5 mg daily. 5. Atorvastatin 40 mg daily. 6. Oxycodone/acetaminophen one every six hours p.r.n. 7. Carvedilol 12.5 mg b.i.d. 8. Ergocalciferol 50,000 units daily. 9. Losartan 25 mg daily. 10. Aspirin 81 mg daily. 11. Letrozole 2.5 mg daily. 12. Levemir 28 units b.i.d. 13. Humalog 5 units with each meal. CONDITION ON DISCHARGE: Improved. DISCHARGE DISPOSITION: Discharge home. FOLLOWUP APPOINTMENTS: As above. [id number]/[facility] #: [id number]
== END 2018-06-17 10:40 | disposition home or self-care (01) ==
LOC: ED 08:28 → MEDTELE 13:07
PROVIDERS: ADMIT Student in an Organized Health Care Education/Training Program; ATTEND Student in an Organized Health Care Education/Training Program
DX: I50.33 Acute on chronic diastolic (congestive) heart failure (principal); N18.4 Chronic kidney disease, stage 4 (severe); R07.9 Chest pain, unspecified; R06.02 Shortness of breath; I50.9 Heart failure, unspecified; R50.9 Fever, unspecified; Z85.3 Personal history of malignant neoplasm of breast; I10 Essential (primary) hypertension; I25.10 Atherosclerotic heart disease of native coronary artery without angina pectoris; E11.9 Type 2 diabetes mellitus without complications; Z79.82 Long term (current) use of aspirin
CPT/HCPCS: 36415; 70450; 71045; 72125; 78582; 80048; 80053; 81003; 81015; 82607; 82728; 82746; 83540; 83550; 83605; 83880; 83921; 84484; 85025; 85610; 85730; 87086; 93005; 93306; 93880; 93970; 99283; A9270-GY; A9540; A9558; G0378; J1100; J1940

== ENCOUNTER 2018-08-01 09:10 | Inpatient (IN) | payer MEDICAID ==
--- NOTE | 2018-07-29 02:12 | HP ---
CC: Judi Culp MD; Reginaldo Umaña MD; Martell Gutiérrez NP * HISTORY AND PHYSICAL: DATE OF ADMISSION: 08/01/18 ATTENDING SURGEON: Dr. Amber La.* (DICTATED BY MAYLIN TRUJILLO) CHIEF COMPLAINT: Left breast cancer; right breast atypical lobular hyperplasia. HISTORY OF PRESENT ILLNESS: This is a 57-year-old female who while living in [place] in August 2017, noted a left breast lump on self exam. She eventually underwent mammogram and ultrasound which showed a lesion in the left breast in the upper inner quadrant suspicious for carcinoma. A core biopsy was performed on 01/03/18 which was positive for invasive ductal carcinoma. In addition, a separate biopsy of a suspicious left axillary lymph node also showed evidence of metastatic disease. The patient had had a prior right breast biopsy in 2012, for atypical lobular hyperplasia with recommendation for wide excision which she did not pursue. There is a family history of breast cancer in her sister who has undergone bilateral mastectomy, her maternal grandmother and both maternal and paternal aunts; all with postmenopausal breast cancer. The patient and her sister have both been tested for BRCA and have been found negative. The patient's pathology was positive for ER and RI and negative for HER2/[place]. She was placed on letrozole in [place] but then because of scheduling difficulties and delays, she decided to relocate to [place] where she currently lives with her sister. She has been seen already by Dr. Culp. She was seen by Dr. La on 07/02/18; her exam at that time showed left breast to be somewhat smaller than the right with a palpable mass in the left breast described as a large, rubbery semi mobile and ill-defined at the 9 o'clock position located at 1 cm from the nipple. Also noted were shotty left axillary lymph nodes. There were no discrete right breast masses, skin or nipple changes or right axillary or supraclavicular lymphadenopathy. Dr. Culp had ordered an MRI though that is apparently pending approval, the patient will contact Dr. Culp's office today regarding that study. Dr. La has discussed with the patient the indications for surgery, the risks, benefits and alternatives, she understands the expected perioperative course and would like to proceed as scheduled with bilateral mastectomies with left axillary lymph node dissection and placement of PowerPort. The patient does speak some [place] Islander but our interview is supplemented by translation provided by her sister. PAST MEDICAL HISTORY: Breast cancer (see above), coronary artery disease with angina (no history of MS; see recent cardiology evaluation and nuclear stress test report by Dr. Umaña), CHF, type 2 diabetes, hypertension, obesity, stage 4 chronic kidney disease (stable), chronic neck and back pain, anxiety, hyperlipidemia and asthma. PAST SURGICAL HISTORY: Cholecystectomy and tubal ligation. MEDICATIONS: 1. Humalog 6 units subcutaneously before each meal. 2. Basaglar 28 units b.i.d. 3. Amlodipine 5 mg daily. 4. Losartan 25 mg daily. 5. Carvedilol 12.5 mg b.i.d. 6. Aspirin 81 mg once daily (the patient had stopped as of 07/23/18) in anticipation of surgery but I advised her that she could and should take it during the perioperative period. Therefore she will resume. 7. Torsemide 20 mg 2 tablets b.i.d. 8. Atorvastatin 40 mg once daily. 9. Tramadol 50 mg b.i.d. p.r.n. back and neck pain. 10. Oxycodone/APAP 5/325 one tablet b.i.d. p.r.n. neck and back pain. 11. Letrozole 2.5 mg once daily. 12. Methocarbamol 750 mg once daily. 13. Vitamin D 50,000 units twice weekly. 14. Albuterol MDI p.r.n. (not required recently). 15. Alprazolam 0.25 mg p.r.n. (the patient uses infrequently). 16. Nitroglycerin 0.4 mg sublingual p.r.n. chest pain (this is a new prescription in that she has not yet needed). DRUG ALLERGIES: IODINE (throat swelling and itching related to seafood only); MORPHINE, anxiety and hallucinations; PENICILLIN, generalized itching and burning. FAMILY HISTORY: Positive for breast cancers as noted above, negative for anesthesia problems, bleeding or clotting disorders. SOCIAL HISTORY: The patient currently lives with her sister, Fiordaliza. 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 She denies use of tobacco, alcohol or other recreational drugs. REVIEW OF SYSTEMS: General: No recent constitutional symptoms or acute illnesses other than described in HPI. She was admitted to [facility] from 06/16/18 to 06/17/18 for apparent fluid overload and resultant chest pain. She was ruled out for acute MS. She recently underwent nuclear stress test on 07/16/18. See separate report from Dr. Umaña, noted was a small area of mild intensity mid to apical anterior ischemia with normal LV function similar to study done in [place] in 12/31/17. HEENT: No problems reported. Cardiovascular: As above , no additions, peripheral edema is better controlled. She has not been recording her weights regularly. Respiratory: No recent exacerbation of her asthma. No cough or shortness of breath. GI: No problems reported. She has never had a colonoscopy. : No problems reported other than her chronic kidney disease which is apparently stable (she is scheduled to be seen by Nephrology in August). Endocrine: Type 2 diabetes, on insulin. No history of thyroid dysfunction. Her most recent A1c was 8.3 on 06/26/18. She does do morning fingersticks and occasionally later in the day. Musculoskeletal: Chronic neck and back pain. No additions. Neuropsych: History of anxiety. PHYSICAL EXAMINATION GENERAL: Well-nourished, well-developed female in no acute distress. VITAL SIGNS: Height 6 feet 0.25 inches, weight 169 pounds, BMI 32.7, temperature 97.8, blood pressure 132/64, pulse 72. SKIN: Warm and dry, no suspicious rashes or lesions noted. HEENT: Pupils are equal, round and reactive. EOMs intact. No conjunctival pallor. Oropharynx: Teeth in good repair. No intraoral lesions. NECK: No lymphadenopathy in the cervical or supraclavicular regions. No thyromegaly or masses. LUNGS: Clear to auscultation. No rales or wheezes. HEART: Regular rate and rhythm. No murmur appreciated. BREASTS: As per Dr. La's exam, not repeated. ABDOMEN: Soft, nontender to palpation. Well-healed surgical scars. No palpable masses or organomegaly. GENITALIA: Not done. RECTAL: Not done. BACK: No spinous process or CVA tenderness. EXTREMITIES: Trace edema bilaterally. NEUROLOGICAL: Grossly intact. IMPRESSION: Left breast cancer and right breast atypical lobular hyperplasia. PLAN/RECOMMENDATIONS: Bilateral mastectomies with left axillary lymph node dissection; PowerPort placement. MAYLIN TRUJILLO [id number]/[facility] #: [id number] [facility] CENTERLefty
[~2018-08-01 09:10] MED LIST: Buffered Lidocaine 0.9% SYRIN* 5 ML/SYR SYRINGE INTRADERM ONE; Buffered Lidocaine 0.9% SYRIN* 5 ML/SYR SYRINGE ONE; Famotidine IV* 10 MG/ML 2 ML (20 mg) IV ONE; Famotidine IV* 10 MG/ML 2 ML (20 mg) ONE; Heparin VIAL(*) 5000 UNITS/ML VIAL (FIVE THOUSAND) ONE; Scopolamine 1.5 mg* PATCH ONE; Scopolamine 1.5 mg* PATCH TRANSDERM ONE; ceFAZolin 2 GM in NS PREMIX(*) 2 GM/100 ML BAG IVPB ONE
--- OUTSIDE RECORDS SUMMARY | 2018-08-01 09:15 | XMS REPORT ---
:1960 External Reference #:[id number] Author Organization [facility] Address [address] [place] [address] [place] [address] Phone [phone] Care Team Providers Name Role Phone Benjamin Fontana MD Primary Care Physician Unavailable Payers Type Date Identification Numbers Payment Provider Subscriber Medicaid Policy Number: [id number] Medicaid Ruth Ann Bundy Group Name: 1 1 [address] PayID: [id number] [place] [address] Commercial Effective: 2017 Policy Number: Nancy Care Ruth Ann Bundy [id number] Expires: 2019 Group Number: 80% [id number] PayID: [id number] [address] Problems Date Description Provider Status Onset: 06/26/2018 Chronic kidney disease stage 4 Moe Marrufo MD Active Onset: 06/26/2018 Malignant neoplasm of upper-outer quadrant of Moe Marrufo MD Active female breast Onset: 06/26/2018 Type 2 diabetes mellitus Moe Marrufo MD Active Onset: 06/26/2018 Acute diastolic heart failure Moe Marrufo MD Active Onset: 06/26/2018 Heart failure, unspecified Moe Marrufo MD Active Onset: 06/26/2018 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 Onset: 06/26/2018 Iron deficiency anemia Moe Marrufo MD Active Onset: 06/26/2018 Neck pain Moe Marrufo MD Active Family History Date Family Member(s) Problem(s) Comments General Breast Cancer paternal aunt, maternal grandmother General Diabetes Father Prostate Cancer Onset: (age 69 Years) Father AR Mother Diabetes Mother Heart Disease First Sister Diabetes First Sister Breast Cancer Social History Type Date Description Comments Marital Status ETOH Use Negative For Denies alcohol use Smoking Patient has never smoked Recreational Drug Use Negative For Denies Drug Use Daily Caffeine Does Not Consume Caffeine Exercise Type/Frequency Negative For Exercises rarely Exercise Type/Frequency Negative For Does not exercise Allergies, Adverse Reactions, Alerts Date Description Reaction Status Severity Comments 06/12/2018 Iodine active rash, burning sensation 06/12/2018 Morphine Sulfate active anxiety, hallucinations 06/12/2018 Penicillin V Potassium active 07/10/2018 Penicillin active skin rash Medications Medication Date Status Form Strength Qnty SIG Indications Ordering Provider Blood Glucose 07/23 Active Kit W/Device 1unit check blood Martell Monitoring s sugar3-4 LISANDRO Gutiérrez System times daily Lancets 07/23 Active Misc 270un use Martell its three-four LISANDRO Gutiérrez times daily and as needed Basaglar Kwikpen 07/10 Active Solution 100Unit/M 15ml 28 units sc Martell Pen-Injec L twice a day LISANDRO Gutiérrez t Pen [place] 07/10 Active Misc 31G X 5 100un use with E11.9 Martell mm its basaglar and LISANDRO Gutiérrez humalog subq everyday Glucose Meter 07/10 Active Strips 100un for use 3-4 E11.9 Martell Test Strips its times daily LISANDRO Gutiérrez Advanced Methocarbamol 07/10 Active Tablets 750mg 60tab take 1 tablet M54.2 Martell s every six LISANDRO Gutiérrez hours as needed for pain. Torsemide 06/26 Active Tablets 20mg 120ta Take 2 tabs I50.9 Moe bs twice a day. MD Yaron will start today. Nitroglycerin 06/26 Active Tablets 0.4mg 14tab Take 1 tab I25.119 Moe Sub s sublingually MD Yaron as needed for chest pain. Can repeat every 5 minutes (for two more times) Ferrous 06/26 Active Tablets 324(37.5F 30tab Take 1 tab D50.9 Moe Gluconate e) mg s daily. MD Yaron Alprazolam Active as needed Unknown / Amlodipine Active Tablets 5mg 1 by mouth Unknown Besylate /0000 every day Aspir-Low Active Tablets 81mg 1 by mouth Unknown /0000 DR every day (on hold since last week 07/24/18) Atorvastatin Active Tablets 40mg 30tab 1 by mouth Laura Calcium /0000 s every day Senner, DO Carvedilol Active Tablets 12.5mg 1 by mouth Unknown /0000 twice a day Vitamin D Active Tablets 57706 1 twice a Unknown (Cholecalciferol / week ) Letrozole Active Tablets 2.5mg take 1 tab by Unknown /0000 mouth daily cycle days 3-7. 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 - will start 06/30 today Losartan Hx Tablets 100mg 1 by mouth Unknown Potassium /0000 every day - 06/18 Medications Administered in Office Medication Date Status Form Strength Qnty SIG Indications Ordering Provider Inj, 07/16/ Administered Injection Reginaldo Easley Regadenoson, 0.1 2017 DO Leeroy MG FACC Aminophylline 07/16/ Administered Injection Reginaldo Easley 2018 DO Leeroy FACC Technetium TC 07/16/ Administered Injection Reginaldo Easley 99M Tetrofosmin, 2018 DO Leeroy Per Unit Dose Up FACC To 40 Millicuries Vital Signs Date Vital Result Comment 07/28/2018 Height 60.25 inches 5'0.25" Weight 169.00 lb Heart Rate 72 /min BP Systolic Sitting 132 mmHg BP Diastolic Sitting 64 mmHg Respiratory Rate 18 /min Body Temperature 97.8 F BMI (Body Mass Index) 32.7 kg/m2 07/10/2018 Height 60.25 inches 5'0.25" Weight 172.00 lb Heart Rate 74 /min BP Systolic 120 mmHg BP Diastolic 66 mmHg Body Temperature 97.2 F O2 % BldC Oximetry 97 % BMI (Body Mass Index) 33.3 kg/m2 07/02/2018 Height 60 inches 5'0" Weight 177.00 lb Heart Rate 74 /min BP Systolic 140 mmHg BP Diastolic 88 mmHg Respiratory Rate 18 /min Body Temperature 97.3 F BMI (Body Mass Index) 34.6 kg/m2 07/01/2018 Height 60 inches 5'0" Weight 177.38 lb Heart Rate 76 /min BP Systolic 130 mmHg right arm reg cuff BP Diastolic 70 mmHg right arm reg cuff BMI (Body Mass Index) 34.6 kg/m2 06/26/2018 Weight 182.00 lb Heart Rate 62 /min BP Systolic 133 mmHg BP Diastolic 58 mmHg Respiratory Rate 16 /min Body Temperature 98.5 F Pain Level 8 back/nack/breast O2 % BldC Oximetry 98 % Results Test Date Test Result H/L Range Note Laboratory test 06/26/2018 Hemoglobin A1c (Glyco 8.3 % High 4.0-5.6 1 finding HGB) Laboratory test 06/26/2018 B-Type Natriuretic 214 pg/mL High 2 finding Peptide BNP Basic Metabolic Panel 06/23/2018 Sodium 141 mmol/L 135-145 Potassium 4.7 mmol/L 3.5-5.0 Chloride 110 mmol/L 101-111 Co2 Carbon Dioxide 25 mmol/L 22-32 Anion Gap 6 mmol/L 2-11 Glucose 115 mg/dL High 70-100 Blood Urea Nitrogen 48 mg/dL High 6-24 Creatinine 1.71 mg/dL High 0.51-0.95 BUN/Creatinine Ratio 28.1 High 8-20 Calcium 9.0 mg/dL 8.6-10.3 Egfr Non- 30.6 >60 Egfr 37.0 >60 3 Urinalysis Profile 06/16/2018 Urine Color Straw Urine Appearance Clear Urine Specific [place] 1.006 Low 1.010-1.030 Urine pH 7.0 5-9 Urine Urobilinogen Negative Negative Urine Ketones Negative Negative Urine Protein 2+(100 mg/dL) Negative Urine Leukocytes 1+ Negative Urine Blood Negative Negative Urine Nitrite Negative Negative Urine Bilirubin Negative Negative Urine Glucose Negative Negative Urine White Blood Cell 2+(11-20/hpf) Absent Urine Red Blood Cell Trace(0-2/hpf) Absent Urine Bacteria Absent Absent Urine Squamous Epithelial Cell Present Absent Urine Culture And 06/16/2018 Urine Culture SEE RESULT BELOW 4 Sensitivities CBC Auto Diff 06/16/2018 White Blood Count 9.6 10^3/uL 3.5-10.8 Red Blood Count 3.10 10^6/uL Low 4.00-5.40 Hemoglobin 9.4 g/dL Low 12.0-16.0 Hematocrit 27 % Low 35-47 Mean Corpuscular Volume 88 fL 80-97 Mean Corpuscular Hemoglobin 30 pg 27-31 Mean Corpuscular HGB Conc 34 g/dL 31-36 Red Cell Distribution Width 13 % 10.5-15 Platelet Count 299 10^3/uL 150-450 Mean Platelet Volume 8.0 um3 7.4-10.4 Abs Neutrophils 6.6 10^3/uL 1.5-7.7 Abs Lymphocytes 1.7 10^3/uL 1.0-4.8 Abs Monocytes 0.7 10^3/uL 0-0.8 Abs Eosinophils 0.4 10^3/uL 0-0.6 Abs Basophils 0.1 10^3/uL 0-0.2 Abs Nucleated RBC 0 10^3/uL Granulocyte % 69.2 % 38-83 Lymphocyte % 18.3 % Low 25-47 Monocyte % 7.3 % High 0-7 Eosinophil % 4.2 % 0-6 Basophil % 1.0 % 0-2 Nucleated Red Blood Cells % 0 Inr/Protime 06/16/2018 Inr 0.90 0.77-1.02 Laboratory test finding 06/16/2018 Partial Thrombo Time 32.0 seconds 26.0 -36.3 PTT Lactic Acid 0.8 mmol/L 0.5-2.0 5 Comp Metabolic Panel 06/16/2018 Sodium 139 mmol/L 135-145 Potassium 5.0 mmol/L 3.5-5.0 Chloride 105 mmol/L 101-111 Co2 Carbon Dioxide 29 mmol/L 22-32 Anion Gap 5 mmol/L 2-11 Glucose 137 mg/dL High 70-100 Blood Urea Nitrogen 37 mg/dL High 6-24 Creatinine 1.88 mg/dL High 0.51-0.95 BUN/Creatinine Ratio 19.7 8-20 Calcium 9.3 mg/dL 8.6-10.3 Total Protein 6.9 g/dL 6.4-8.9 Albumin 3.3 g/dL 3.2-5.2 Globulin 3.6 g/dL 2-4 Albumin/Globulin Ratio 0.9 Low 1-3 Total Bilirubin 0.30 mg/dL 0.2-1.0 Alkaline Phosphatase 131 U/L High 34-104 Alt 36 U/L 7-52 Ast 26 U/L 13-39 Egfr Non- 27.4 >60 Egfr 33.1 >60 6 Laboratory test finding 06/16/2018 Troponin-I (TnI) 0.01 ng/mL <0.04 B-Type Natriuretic Peptide BNP 361 pg/mL High 7 Iron & Iron Binding Capacity 06/16/2018 Iron 35 g/dL Low 50-212 Unsaturated Iron Binding 325 g/dL Total Iron Binding Capacity 360 g/dL 250-450 Transferrin 257 mg/dL 203-362 % Iron Saturation 10 % Low 15-55 Laboratory test finding 06/16/2018 Ferritin 200.7 ng/mL 11-307 Folic Acid (Folate) 14.74 ng/mL >3.99 Vitamin B12 559 pg/mL 180-914 8 Methylmalonic Acid Mma 0.44 nmol/mL <=0.40 9 Laboratory test finding 06/16/2018 Troponin-I (TnI) 0.01 ng/mL <0.04 CBC Auto Diff 06/11/2018 White Blood Count 11.9 10^3/uL High 3.5-10.8 Red Blood Count 3.03 10^6/uL Low 4.00-5.40 Hemoglobin 9.0 g/dL Low 12.0-16.0 Hematocrit 27 % Low 35-47 Mean Corpuscular Volume 89 fL 80-97 Mean Corpuscular Hemoglobin 30 pg 27-31 Mean Corpuscular HGB Conc 34 g/dL 31-36 Red Cell Distribution Width 13 % 10.5-15 Platelet Count 264 10^3/uL 150-450 Mean Platelet Volume 7.7 um3 7.4-10.4 Abs Neutrophils 8.5 10^3/uL High 1.5-7.7 Abs Lymphocytes 2.1 10^3/uL 1.0-4.8 Abs Monocytes 0.8 10^3/uL 0-0.8 Abs Eosinophils 0.4 10^3/uL 0-0.6 Abs Basophils 0.1 10^3/uL 0-0.2 Abs Nucleated RBC 0 10^3/uL Granulocyte % 71.4 % 38-83 Lymphocyte % 17.9 % Low 25-47 Monocyte % 6.8 % 0-7 Eosinophil % 3.0 % 0-6 Basophil % 0.9 % 0-2 Nucleated Red Blood Cells % 0 Comp Metabolic Panel 06/11/2018 Sodium 141 mmol/L 135-145 Potassium 4.7 mmol/L 3.5-5.0 Chloride 108 mmol/L 101-111 Co2 Carbon Dioxide 28 mmol/L 22-32 Anion Gap 5 mmol/L 2-11 Glucose 181 mg/dL High 70-100 Blood Urea Nitrogen 41 mg/dL High 6-24 Creatinine 1.86 mg/dL High 0.51-0.95 BUN/Creatinine Ratio 22.0 High 8-20 Calcium 9.2 mg/dL 8.6-10.3 Total Protein 6.8 g/dL 6.4-8.9 Albumin 3.4 g/dL 3.2-5.2 Globulin 3.4 g/dL 2-4 Albumin/Globulin Ratio 1.0 1-3 Total Bilirubin 0.30 mg/dL 0.2-1.0 Alkaline Phosphatase 103 U/L 34-104 Alt 21 U/L 7-52 Ast 20 U/L 13-39 Egfr Non- 27.7 >60 Egfr 33.6 >60 10 Laboratory test finding 06/11/2018 Vitamin D Total 25(Oh) 19.1 ng/mL Low 20-50 1 Therapeutic target for the treatment of diabetes mellitus patients is <7% HBA1C, and in selective patients <6.0%. Please refer to [employer] diabetic care guidelines for further information. 2 >100 to <200 pg/mL: likely compensated congestive heart failure (CHF) 200 to 400 pg/mL: likely moderate CHF >400 pg/mL: likely moderate to severe CHF 3 Because ethnic data is not always readily available, this report includes an eGFR for both -Americans and non- Americans. The National Kidney Disease Education Program (NKDEP) does not endorse the use of the MDRD equation for patients that are not between the ages of 18 and 70, are , have extremes of body size, muscle mass, or nutritional status, or are non- or non-. According to the National Kidney Foundation, irrespective of diagnosis, the stage of the disease is based on the level of kidney function: Stage Description GFR(mL/min/1.73 m(2)) 1 Kidney damage with normal or decreased GFR 90 2 Kidney damage with mild decrease in GFR 60-89 3 Moderate decrease in GFR 30-59 4 Severe decrease in GFR 15-29 5 Kidney failure <15 (or dialysis) 4 SEE RESULT BELOW Name: RUTH ANN BUNDY : [address]: Nathaniel Noe MD Acct: [id number] Unit: [id number] AGE: 57 Location: [place] [address] Re06/16/18 SEX: F Status: ADM Simi SPEC: [id number] RANDEE: 06/16/[address]: Brooklyn Candelario MD REQ: [id number] RECD: 06/16/18 STATUS: KARI CRUZ DR: 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 END OF REPORT DEPARTMENT OF PATHOLOGY, [address] [place] [address] Александр Dubose M.D. Director [facility] # [id number] 5 [facility] Severe Sepsis and Septic Shock Management Bundle Measure requires all lactic acids initially measuring >2.0 mmol/L be repeated. 6 Because ethnic data is not always readily available, this report includes an eGFR for both -Americans and non- Americans. The National Kidney Disease Education Program (NKDEP) does not endorse the use of the MDRD equation for patients that are not between the ages of 18 and 70, are , have extremes of body size, muscle mass, or nutritional status, or are non- or non-. According to the National Kidney Foundation, irrespective of diagnosis, the stage of the disease is based on the level of kidney function: Stage Description GFR(mL/min/1.73 m(2)) 1 Kidney damage with normal or decreased GFR 90 2 Kidney damage with mild decrease in GFR 60-89 3 Moderate decrease in GFR 30-59 4 Severe decrease in GFR 15-29 5 Kidney failure <15 (or dialysis) 7 >100 to <200 pg/mL: likely compensated congestive heart failure (CHF) 200 to 400 pg/mL: likely moderate CHF >400 pg/mL: likely moderate to severe CHF 8 Normal Range 180 to 914 Indeterminate Range 145 to 180 Deficient Range <145 9 In this sample, the concentration of methylmalonic acid (MMA) was minimally elevated. As the upper limit of the reference range varies in different laboratories from 0.4 to 0.6 nmol/mL. This finding could be considered normal, especially if the patient does not show other signs of vitamin B12 deficiency. ADDITIONAL INFORMATION This test was developed and its performance characteristics determined by [facility] in a manner consistent with CLIA requirements. This test has not been cleared or approved by the U.S. Food and Drug Administration. Test Performed by: [address] [address] Because ethnic data is not always readily available, this report includes an eGFR for both -Americans and non- Americans. The National Kidney Disease Education Program (NKDEP) does not endorse the use of the MDRD equation for patients that are not between the ages of 18 and 70, are , have extremes of body size, muscle mass, or nutritional status, or are non- or non-. According to the National Kidney Foundation, irrespective of diagnosis, the stage of the disease is based on the level of kidney function: Stage Description GFR(mL/min/1.73 m(2)) 1 Kidney damage with normal or decreased GFR 90 2 Kidney damage with mild decrease in GFR 60-89 3 Moderate decrease in GFR 30-59 4 Severe decrease in GFR 15-29 5 Kidney failure <15 (or dialysis) Procedures Date CPT Code Description Status 07/16/2018 27581 Stress Test Completed 07/16/2018 64153 Myocardial Perfusion Imaging Tomographic (Spect) Completed Multiple Studies 07/01/2018 05291 EKG Tracing & Interpretation Completed 06/16/2018 80082 ECHO Transthorasic Realtime 2D W Doppler & Color Flow Completed Hosp Encounters Type Date Location Provider CPT E/M Dx Office Visit 07/10/2018 1:00p [facility] - [place]ell G[place] [address] D50.9 [place] Z79.4 E11.22 C50.912 I25.119 M54.2 G47.00 R07.9 R06.02 N18.4 Office Visit 07/02/2018 10:15a [facility] [place], [address] C50.912 [facility] Office Visit 07/01/2018 11:15a [facility] Reg[facility]do [facility]ma[facility], [address] I25.119 [facility] FACC Z01.810 N18.9 I50.32 E66.8 E11.69 I12.9 E78.5 C50.412 D64.9 Office Visit 06/26/2018 10:30a [facility] [place] [address] I50.31 [facility] I50.9 N18.4 I25.119 C50.412 E11.22 D50.9 M54.2 Office Visit 06/17/2018 1:26p [facility] Itz Stringer, [address]183 I50.33 Hospitalists M.D. E11.22 N18.4 Office Visit 06/17/2018 12:01p [facility] Tiago Glez, [address] R06.02 [facility] M.[place] Office Visit 06/16/2018 1:25p [facility] Curt Blanchard, [address] R06.02 Hospitalists N.P. R07.9 M54.2 R51 Plan of Care Future Appointment(s):08/01/2018 9:30 am - Simin Box NP at [facility]08/01/2018 9:30 am - [place] [facility] MD at [facility]/15/2018 10:00 am - Benjamin Fontana M.D. at [facility] - [id number]/01/2018 - Milo Church, PAC50.912 Malignant neoplasm of unspecified site of left female fueyrcZ95.818 Encounter for other preprocedural examination
--- OUTSIDE RECORDS SUMMARY | 2018-08-01 09:15 | XMS REPORT | Continuity of Care Document ---
:1960 External Reference #:[id number] Author Name Westley Bernabe M.D. Address 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 Martell Gutiérrez NP Primary Care Physician Unavailable Payers Type Date Identification Numbers Payment Provider Subscriber Policy Number: [id number] Medicaid [place] Pallavi Blevins PayID: [id number] [address] [place] [address] Advance Directives Description No Information Available Problems Description No Information Family History Date Family Member(s) Problem(s) Comments Father Heart Disease Father Cancer Father Diabetes Father High BP Father Glasses Father Cataract Mother Glasses Mother High BP Mother Cancer Mother Angina Social History Type Date Description Comments Sex Unknown ETOH Use Never used alcohol Tobacco Use Start: Unknown Patient has never smoked Smoking Status Reviewed: 07/24/18 Patient has never smoked Allergies, Adverse Reactions, Alerts Date Description Reaction Status Severity Comments 07/24/2018 Penicillin Active 07/24/2018 Iodine Active 07/24/2018 Morphine Active Medications Medication Date Status Form Strength Qnty SIG Indications Ordering Provider Tramadol HCL / Active Tablets 50mg Take 1 Unknown 0000 Tablet By Mouth Every Day as Needed Alprazolam // Active Tablets 0.25mg Take 1 Unknown 0000 Tablet By Mouth Every Day Torsemide 00/ Active Tablets 20mg Take 2 Unknown 0000 Tablets By Mouth Twice A Day D3-50 / Active Capsules 93026Siot Take 1 Unknown 0000 Cap By Mouth Twice A Week Amlodipine // Active Tablets 5mg Take 1 Unknown Besylate 0000 Tablet By Mouth Every Day Methocarbamol / Active Tablets 750mg Take 1 Unknown 0000 Tablet By Mouth Every 6 Hours as Needed For Pain Humalog / Active Solution 100Unit/ML 10 units Unknown 0000 Cartridge three times a day before meals or per sliding scale Femara / Active Tablets 2.5mg Unknown 0000 Iron 00/00/ Active Tablets ER Unknown 0000 Aspir-81 / Active Tablets DR 81mg 1 by Unknown 0000 mouth every day Immunizations Description No Information Available Vital Signs Date Vital Result Comment 07/24/2018 10:17am Intraocular Pressure Right Eye 16 mmHg Intraocular Pressure Left Eye 16 mmHg Results Description No Information Available Procedures Date Code Description Status 07/24/2018 43645 Fundus Photography W/Interpretation & Report Completed 07/24/2018 39749 Ophthalmoscopy Initial Completed 07/24/2018 95384 Eye Exam New Comprehensive Completed Encounters Description No Information Available Plan of Treatment No Information Available
--- OUTSIDE RECORDS SUMMARY | 2018-08-01 09:16 | XMS REPORT ---
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 Onset: 06/26/2018 Iron deficiency anemia Moe Marrufo MD Active Onset: 06/26/2018 Neck pain Moe Marrufo MD Active Family History Date Family Member(s) Problem(s) Comments General Breast Cancer paternal aunt, maternal grandmother General Diabetes Father Prostate Cancer Onset: (age 69 Years) Father OR Mother Diabetes Mother Heart Disease First Sister [...] Reaction Status Severity Comments 06/12/2018 Iodine active 06/12/2018 Morphine Sulfate active 06/12/2018 Penicillin V Potassium active 07/10/2018 Penicillin active skin rash Medications Medication Date Status Form Strength Qnty SIG Indications Ordering Provider Basaglar Kwikpen 07/10 Active Solution 100Unit/M 15ml 28 units sc Martell Pen-Injec L bid LISANDRO Gutiérrez t Pen [place] 07/10 Active Misc 31G X 5 100un use with E11.9 Martell mm its Basaglar and LISANDRO Gutiérrez Humalog subq everyday Glucose Meter 07/10 Active Strips 100un for use 3-4 E11.9 Martell Test Strips /2018 its times daily LISANDRO Gutiérrez Advanced Methocarbamol [...] MD Yaron Alprazolam Active as needed Unknown /0000 Amlodipine Active Tablets 5mg 1 by mouth Unknown Besylate / every day Aspir-Low Active Tablets 81mg 1 by mouth Unknown /0000 DR every day Atorvastatin Active Tablets 40mg 30tab 1 by mouth Laura Calcium / s every day DO Nakita Carvedilol Active Tablets 12.5mg 1 by mouth Unknown /0000 twice a day Vitamin D Active Tablets 01376 1 twice a Unknown (Cholecalciferol / week ) Letrozole Active Tablets 2.5mg take 1 tab by Unknown /0000 mouth daily cycle days 3-7. Oxycodone-Acetam Active Tablets 1 tablet q6 Unknown inophen /0000 hours as needed for pain Tramadol HCL [...] HCL /2017 s three times a Brock, WARE CARRIER - day as needed 07/10 spasm Furosemide Hx Tablets 40mg 1 by mouth Unknown /0000 twice daily. - will start 06/30 Losartan Hx Tablets 100mg 1 by mouth Unknown Potassium /0000 every day - 06/18 Vital Signs Date Vital Result Comment 07/10/2018 Height 60.25 inches 5'0.25" Weight 172.00 [...] Color Straw Urine Appearance Clear Urine Specific [place] 1.006 Low 1.010-1.030 Urine pH 7.0 5-9 [...] in selective patients <6.0%. Please refer to [place] [employer] diabetic care guidelines for further [...] [address]: Nathaniel Noe MD Acct: [id number] Unit: [id number] AGE: 57 Location: [place] [address] Re06/16/18 SEX: F Status: ADM Simi SPEC: [id number] RANDEE: 06/16/[address]: Brooklyn Candelario MD REQ: [id number] RECD: 06/16/18 STATUS: KARI CRUZ DR: Martell Gutiérrez WARE CARRIER _ SOURCE: URINE SPDESC: ORDERED: Urine Culture Procedure Result Reported Site Urine Culture Final 06/17/18- 0751 ML No Growth (<1,000 CFU/mL) * ML - Main Lab . END OF REPORT DEPARTMENT OF PATHOLOGY, [address] [place] [address] Александр Dubose M.D. Director [facility] # [id number] Severe Sepsis and Septic Shock Management Bundle [...] developed and its performance characteristics determined by [facility] in a manner consistent with CLIA requirements. This test has not been cleared or approved by the U.S. Food and Drug Administration. Test Performed by: [facility] - [address] [address] Because ethnic data is not always [...] dialysis) Procedures Date CPT Code Description Status 07/01/2018 16372 EKG Tracing & Interpretation Completed 06/16/2018 06088 ECHO Transthorasic Realtime 2D W Doppler & Color Flow Completed Hosp Encounters Type Date Location Provider CPT E/M Dx Office Visit 07/02/2018 [place] [address] C50.912 10:15a [facility] Office Visit 07/01/2018 [facility] [place]do [place] [address] I25.119 11:15a [facility] Z01.810 N18.9 I50.32 E66.8 E11.69 I12.9 E78.5 C50.412 D64.9 Office Visit 06/17/2018 1:26p [facility],page [place], [address] I50.33 Hospitalists Juan Miguel E11.22 N18.4 Office Visit 06/17/2018 12:01p [facility] Tiago Glez, [address] [facility] Juan Miguel Office Visit 06/16/2018 1:25p [facility],page [place], [address] R06.02 Hospitalists N.PRamos R07.9 M54.2 R51 Plan of Care Future Appointment(s):10/15/2018 10:00 am - Benjamin Fontana M.D. at [facility] Internal Medicine - Jvqwlrlqw07/19/2018 8:45 am - Reginaldo Umaña DO FACC at [facility]07/10/2018 - Martell Gutiérrez NPD50.9 Iron deficiency anemia , xcdaxavvekpJ09.9 Type 2 diabetes mellitus without complicationsNew Medication: Pen [place] 01/10" 31 G X 5 mmGlucose Meter Test Strips AdvancedComments:Your most recent hemoglobin A1c was 8.3% I have changed the Levemir to Basaglar in hopes that it will stop the itching. Start taking 24 units twice daily and if tolerated increase back to the 28 units twice daily..After changing over to the Basaglar, start taking 6 units of the Humalog before meals, as long as your blood glucose is over 100.Follow up:[address] Fontana.Goals:Goal Hemoglobin A1c is less than 7.0%. Goal Blood pressure is less than 130/ 85.C50.912 Malignant neoplasm of unspecified site of left female lqptaxN07.119 Athscl heart disease of red cliff cor art w unsp ang fbcsyV68.9 Chronic kidney disease, cdstmcogfklW25.2 CervicalgiaNew Medication:Methocarbamol 750 mgCyclobenzaprine HCL 10 mgNew Therapy:Physical TherapyComments:I have referred you to physical therapy today.Use the muscle relaxant which may help.Heat to the area may help also.G47.00 Insomnia, unspecifiedComments:If you are still unable to sleep after trying the muscle relaxant please let me know.
--- OUTSIDE RECORDS SUMMARY | 2018-08-01 09:16 | XMS REPORT ---
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 Moe Marrufo MD Active ang pctrs Onset: 06/26/2018 Heart failure, unspecified Moe Marrufo MD Active Onset: 06/26/2018 Acute diastolic heart failure Moe Marrufo MD Active Onset: 06/26/2018 Type 2 diabetes mellitus Moe Marrufo MD Active Onset: 06/26/2018 Malignant neoplasm of upper-outer quadrant of Moe Marrufo MD Active female breast Onset: 06/26/2018 Chronic kidney disease stage 4 Moe Marrufo MD Active Family History Date Family Member(s) Problem(s) Comments General Breast Cancer paternal aunt, maternal grandmother General Diabetes Father Prostate Cancer Onset: (age 69 Years) Father [place] Mother Diabetes Mother Heart Disease First Sister [...] Sulfate active 06/12/2018 Penicillin V Potassium active Medications Medication Date Status Form Strength Qnty SIG Indications Ordering Provider Torsemide 08/30/ Active Tablets 20mg 120ta Take 2 tabs I50.9 Moe 2018 bs twice a day. MD Yaron will start today. Nitroglycerin 06/26/ Active Tablets 0.4mg 14tab Take 1 tab I25.119 Moe 2018 Sub s sublingually MD Yaron as needed for chest pain. Can repeat every 5 minutes (for two more times) Ferrous 06/26/ Active Tablets 324(37.5F 30tab Take 1 tab D50.9 Moe Gluconate 2018 e) mg s daily. MD Yaron Alprazolam / Active as needed Unknown 0000 Amlodipine / Active Tablets 5mg 1 by mouth Unknown Besylate 0000 every day Aspir-Low / Active Tablets 81mg 1 by mouth Unknown 0000 DR every day Atorvastatin / Active Tablets 40mg 30tab 1 by mouth Laura Calcium 0000 s every day DO Nakita Carvedilol / Active Tablets 12.5mg 1 by mouth Unknown 0000 twice a day Vitamin D / Active Tablets 33481 1 twice a Unknown (Cholecalcifero 0000 week l) Letrozole / Active Tablets 2.5mg take 1 tab by Unknown 0000 mouth daily cycle days 3-7. Oxycodone-Aceta / Active Tablets 1 tablet q6 Unknown minophen 0000 hours as needed for pain Tramadol HCL / Active Tablets 50mg 1 daily as Unknown 0000 needed Losartan / Active Tablets 25mg 1 by mouth Unknown Potassium 0000 every day Levemir / Active Solution 100Unit/M 28 units bid Unknown Flextouch 0000 Pen-Injec L t Humalog Kwikpen / Active Solution 100Unit/M 5 units with Unknown 0000 Pen-Injec L each meal t Ventolin HFA / Active Aerosol 108(90Bas 2 puffs by Unknown 0000 e) mouth four mcg/Act times a day as needed Furosemide / Hx Tablets 40mg 1 by mouth Unknown 0000 - twice daily. 06/30/ will start 2018 today Losartan / Hx Tablets 100mg 1 by mouth Unknown Potassium 0000 - every day 2017 Vital Signs Date Vital Result Comment 07/02/2018 Height 60 inches 5'0" Weight 177.00 [...] Color Straw Urine Appearance Clear Urine Specific [place] 1.006 Low 1.010-1.030 Urine pH 7.0 5-9 [...] in selective patients <6.0%. 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 END OF REPORT DEPARTMENT OF PATHOLOGY, [address] [place] [address] Александр Dubose M.D. Director [facility] # [id number] [facility] Severe Sepsis and Septic Shock Management Bundle [...] developed and its performance characteristics determined by [facility] in a manner consistent with CLIA requirements. This test has not been cleared or approved by the U.S. Food and Drug Administration. Test Performed by: [address] [address] Because ethnic data is not always [...] Procedures Date CPT Code Description Status 07/01/2018 80032 EKG Tracing & Interpretation Completed 06/16/2018 64978 ECHO Transthorasic Realtime 2D W Doppler & Color Flow Completed Hosp Encounters Type Date Location Provider CPT E/M Dx Office Visit 06/17/2018 [facility],pc Itz [place], [address] I50.33 1:26p Kennedy Bullard E11.22 N18.4 Office Visit 06/17/2018 12:01p [facility] Tiago Glez, [address] R06.02 Sim Bullard Office Visit 06/16/2018 1:25p [facility],page [place], [address] R06.02 Hospitalists N.PRamos R07.9 M54.2 R51 Plan of Care Future Appointment(s):07/16/2018 8:45 am - Reginaldo Umaña DO FACC at [facility]07/10/2018 1:00 pm - Martell Gutiérrez NP at [facility] Internal Medicine [facility]
[2018-08-01] MEDS ORDERED: Insulin LISPRO* 1 UNITS UNIT SUBCUT ONE (09:55)
[2018-08-01] MEDS ORDERED: Phenylephrine IV* 40 MCG/ML 10 ML SYRINGE ONE (10:13)
[2018-08-01] MEDS ORDERED: Propofol* 10 MG/ML 20 ML BTL IV PUSH ONE (10:13)
[2018-08-01] MEDS ORDERED: Mivacurium Chloride* 20 MG/10 ML VIAL IV ONE (10:13)
[2018-08-01] MEDS ORDERED: Lidocaine 2% PF * 5 ML VIAL ONE (10:13)
[2018-08-01] MEDS ORDERED: Midazolam* 1 MG/ML 2 ML VIAL (2 MG) ONE (10:14)
[2018-08-01] MEDS ORDERED: fentaNYL* 50 MCG/ML 2 ML VIAL (100 MCG VIAL) ONE ×3 (10:14→13:51)
[2018-08-01] MEDS ORDERED: Lidocain 1% EPI 1:100,000 * 30 ML MDV ONE (11:04)
[2018-08-01] MEDS ORDERED: Bupivacaine 0.5% SDV PF* 30ML VIAL ONE (11:04)
[2018-08-01] MEDS ORDERED: Bupivacaine 0.25% SDV* 30 ML ONE ×2 (11:05→11:11)
[2018-08-01] MEDS ORDERED: EPHEDrine (Pressors)* 50 MG/ML VIAL ONE ×2 (12:21→14:28)
[2018-08-01] MEDS ORDERED: Metoprolol Tartrate IV* 1 MG/ML 5 ML VIAL ONE (13:41)
--- NOTE | 2018-08-01 13:48 | RAD ---
INDICATION: Power port placement. Technique: 49 seconds of?fluoroscopy?was provided?for the physician proceduralist. REPORT: Tip of the RIGHT chest port is visualized at the level of the inferior segment of the superior vena cava. IMPRESSION: Procedural control films. CPT II Codes: G9500
[2018-08-01] MEDS ORDERED: Ondansetron INJ* 2 MG/ML VIAL ONE ×2 (14:56→17:13)
[2018-08-01] MEDS ORDERED: Furosemide IV* 10 MG/ML 2 ML VIAL (20 MG) ONE (15:25)
--- NOTE | 2018-08-01 15:50 | OP ---
Operative Report - Blank - Operative Report Date of Operation: 08/01/18 Note: Brief Operative Note Preop Dx: Left Breast Cancer; Right Breast Atypical Lobular Hyperplasia Postop Dx: same Procedure: Bilateral mastectomies; Right axillary dissection; powerport placement Anesthesia: GET Surgeon: Abhinav Negotiator: LISANDRO Box Fluids: 2300 ml crystalloid EBL: 100- 150 ml Specimen: bilateral mastectomies; Right axillary contents Drains: MILLY x 2 on Left; MILLY x 1 on Right Findings: dictated
[2018-08-01] MEDS ORDERED: Polyethylene Glycol 3350* 17 GM PACKET PO PRN (15:57)
[2018-08-01] MEDS ORDERED: oxyCODONE/Acetamin 5/325 MG* TAB PO PRN ×2 (16:01→17:13)
[2018-08-01] MEDS ORDERED: HYDROmorphone INJ* 1 MG/ML CARPUJECT SYRINGE IV SLOW PU PRN (16:02)
[2018-08-01] MEDS ORDERED: HYDROmorphone INJ1* 1 MG/ML SYRINGE IV SLOW PU PRN ×2 (16:02→20:28)
[2018-08-01] MEDS ORDERED: Dextrose 50% Syringe 50 ML* 25 GM/50 ML SYRINGE IV PUSH PRN (16:03)
[2018-08-01] MEDS ORDERED: Ondansetron INJ* 2 MG/ML VIAL IV PRN (16:03)
[2018-08-01] MEDS ORDERED: HYDROmorphone INJ1* 1 MG/ML SYRINGE ONE (16:49)
[2018-08-01] MEDS ORDERED: Labetalol IV* 5 MG/ML 20 ML VIAL ONE (16:49)
[2018-08-01] MEDS ORDERED: PROCHLORPERAZINE INJ 5 MG/ML 2 ML VIAL IV PRN (17:13)
[2018-08-01] MEDS ORDERED: fentaNYL* 50 MCG/ML 2 ML VIAL (100 MCG VIAL) IV PRN (17:13)
[2018-08-01] MEDS ORDERED: HYDROcodone/ACETAMIN 5-325 MG* 1 TAB PO PRN (17:13)
[2018-08-01] MEDS ORDERED: Naloxone* 0.4 MG/ML 1 ML VIAL IV PRN (17:13)
[2018-08-01] MEDS: Labetalol IV* 5 MG/ML 20 ML VIAL IV PUSH PRN ×4 (17:29→17:48)
--- NOTE | 2018-08-01 18:00 | RAD ---
INDICATION: Status post PowerPort placement. COMPARISON: Comparison is made with a prior study from June 16, 2018. TECHNIQUE: A portable view of the chest was obtained. FINDINGS: There is a power port central venous catheter on the right side. The catheter tip projects over the region of the superior vena cava. The heart is mildly enlarged and unchanged. The lungs are underinflated and clear. No pneumothorax or pleural effusion is seen. There are surgical drains which project bilaterally over the lateral chest del cid and a third surgical drain which projects over the left lung. IMPRESSION: STATUS POST POWERPORT CENTRAL VENOUS CATHETER PLACEMENT, NO EVIDENCE FOR PNEUMOTHORAX.
[2018-08-01] MEDS ORDERED: hydrALAZINE IV* 20 MG/ML VIAL ONE (18:14)
[2018-08-01] MEDS: hydrALAZINE IV* 20 MG/ML VIAL IV SLOW PU SCH ×2 (18:18→18:29)
[2018-08-01] MEDS ORDERED: PROCHLORPERAZINE INJ 5 MG/ML 2 ML VIAL ONE (18:33)
[2018-08-01] MEDS: Insulin LISPRO* 1 UNITS UNIT SUBCUT SCH (20:44)
[2018-08-01] MEDS: Carvedilol TAB* 6.25 MG PO SCH (21:41)
[2018-08-01] MEDS: Torsemide TAB* 20 MG PO SCH (21:41)
[2018-08-01] MEDS: oxyCODONE/Acetamin 5/325 MG* TAB PO PRN (21:42)
[2018-08-02] MEDS: oxyCODONE/Acetamin 5/325 MG* TAB PO PRN ×3 (04:32→21:35)
[2018-08-02 05:37] LABS: ABS Basophils 0.1 10^3/ul (0-0.2); ABS Eosinophils 0.3 10^3/ul (0-0.6); ABS Lymphocytes 2.4 10^3/ul (1.0-4.8); ABS Monocytes 0.8 10^3/ul (0-0.8); ABS Neutrophils 6.7 10^3/ul (1.5-7.7); ABS Nucleated RBC 0 10^3/ul; Eosinophil % 2.7 % (0-6); Hematocrit 26 % (35-47); Hemoglobin 8.9 g/dl (12.0-16.0); Lymphocyte % 23.6 % (25-47); Mean Corpuscular HGB Conc 34 g/dl (31-36); Mean Corpuscular Hemoglobin 30 pg (27-31); Mean Corpuscular Volume 89 fL (80-97); Mean Platelet Volume 8.1 um3 (7.4-10.4); Nucleated Red Blood Cells % 0; Platelet Count 222 10^3/ul (150-450); Red Blood Count 2.97 10^6/ul (4.00-5.40); Red Cell Distribution Width 14 % (10.5-15); White Blood Count 10.4 10^3/ul (3.5-10.8)
[2018-08-02 06:00] LABS: EGFR Non-African American 22.5 (>60)
[2018-08-02] MEDS: Torsemide TAB* 20 MG PO SCH ×2 (09:02→21:30)
[2018-08-02] MEDS: Carvedilol TAB* 6.25 MG PO SCH ×2 (09:03→17:23)
[2018-08-02] MEDS: Losartan TAB* 25 MG PO SCH (09:03)
[2018-08-02] MEDS: amLODIPine TAB* 5 MG PO SCH (09:03)
[2018-08-02] MEDS: Atorvastatin* 40 MG TAB PO SCH (09:03)
[2018-08-02] MEDS: Aspirin EC TAB* 81 MG TAB.EC PO SCH (09:03)
[2018-08-02] MEDS: Insulin LISPRO* 1 UNITS UNIT SUBCUT SCH ×4 (09:05→17:23)
[2018-08-02] MEDS: Ondansetron ODT TAB* 4 MG SL PRN (09:19)
[2018-08-02] MEDS ORDERED: ALPRAZolam TAB* 0.25 MG PO PRN (12:18)
--- NOTE | 2018-08-02 12:18 | PN ---
Progress Note - Progress Note Date of Service: 08/02/18 SOAP: Subjective: pt seen and examined. not feeling well; dizzy, nauseous Objective: Temp Pulse Resp BP Pulse Ox 98.2 F 86 18 158/73 99 08/02/18 07:15 08/02/18 07:15 08/02/18 08:00 08/02/18 07:15 08/02/18 07:15 Intake & Output 08/01/18 08/02/18 08/02/18 22:59 06:59 14:59 Intake Total 4000 100 958 Output Total 985 510 33 Balance 3015 -410 925 a and o x3, sitting in chair sclera anicteric lungs clear at apices, crackles at R base dressing intact JPsx3 all serous abdo: soft/ obese, NT ext: pitting edema x4 Laboratory Last Values WBC 10.4 10^3/ul (3.5-10.8) 08/02/18 05:21 RBC 2.97 10^6/ul (4.00-5.40) L 08/02/18 05:21 Hgb 8.9 g/dl (12.0-16.0) L 08/02/18 05:21 Hct 26 % (35-47) L 08/02/18 05:21 MCV 89 fL (80-97) 08/02/18 05:21 MCH 30 pg (27-31) 08/02/18 05:21 MCHC 34 g/dl (31-36) 08/02/18 05:21 RDW 14 % (10.5-15) 08/02/18 05:21 Plt Count 222 10^3/ul (150-450) 08/02/18 05:21 MPV 8.1 um3 (7.4-10.4) 08/02/18 05:21 Neut % (Auto) 65.0 % (38-83) 08/02/18 05:21 Lymph % (Auto) 23.6 % (25-47) L 08/02/18 05:21 [place] % (Auto) 7.8 % (0-7) H 08/02/18 05:21 Eos % (Auto) 2.7 % (0-6) 08/02/18 05:21 Baso % (Auto) 0.9 % (0-2) 08/02/18 05:21 Absolute Neuts (auto) 6.7 10^3/ul (1.5-7.7) 08/02/18 05:21 Absolute Lymphs (auto) 2.4 10^3/ul (1.0-4.8) 08/02/18 05:21 Absolute Monos (auto) 0.8 10^3/ul (0-0.8) 08/02/18 05:21 Absolute Eos (auto) 0.3 10^3/ul (0-0.6) 08/02/18 05:21 Absolute Basos (auto) 0.1 10^3/ul (0-0.2) 08/02/18 05:21 Absolute Nucleated RBC 0 10^3/ul 08/02/18 05:21 Nucleated RBC % 0 08/02/18 05:21 Sodium 134 mmol/L (135-145) L 08/02/18 05:21 Potassium 4.5 mmol/L (3.5-5.0) 08/02/18 05:21 Chloride 102 mmol/L (101-111) 08/02/18 05:21 Carbon Dioxide 26 mmol/L (22-32) 08/02/18 05:21 Anion Gap 6 mmol/L (2-11) 08/02/18 05:21 BUN 51 mg/dL (6-24) H 08/02/18 05:21 Creatinine 2.23 mg/dL (0.51-0.95) H 08/02/18 05:21 Est GFR ( Amer) 27.2 (>60) 08/02/18 05:21 Est GFR (Non-Af Amer) 22.5 (>60) 08/02/18 05:21 BUN/Creatinine Ratio 22.9 (8-20) H 08/02/18 05:21 Glucose 204 mg/dL (70-100) H 08/02/18 05:21 POC Glucose (mg/dL) 206 mg/dL (70-100) H 08/02/18 11:26 Calcium 8.8 mg/dL (8.6-10.3) 08/02/18 05:21 Assessment: POD1 B/l mastectomy R axillary lymph node dissection, powerport placement; CKD, Plan: resume previous medications d/c ivf repeat labs in am DVT, GI proph
[2018-08-02] MEDS ORDERED: Dextrose 50% Syringe 50 ML* 25 GM/50 ML SYRINGE IV PUSH PRN (12:19)
--- NOTE | 2018-08-02 12:44 | OP ---
CC: Dr. Reginaldo Umaña; Martell Gutiérrez NP; [facility] * DATE OF OPERATION: 08/01/18 - ROOM #339 DATE OF : 56 SURGEON: Amber La MD HOG RIBBER: Jacy Box NP PRE-OP DIAGNOSIS: Left breast cancer. POST-OP DIAGNOSIS: Left breast cancer. OPERATIVE PROCEDURE: Bilateral mastectomy, left axillary dissection, and PowerPort placement. INDICATIONS: Ms. Blevins is a 57-year-old woman who was diagnosed with breast cancer and who has opted for bilateral mastectomy and port placement. DESCRIPTION OF PROCEDURE: She was brought to the operating room, placed on the OR table in a supine position and given general anesthesia. The chest and left axilla were prepped and draped in the usual sterile fashion. Attention was turned first to placing the port. After infiltrating with local anesthetic, an attempt was made at subclavian access. This was unsuccessful and ultimately after several attempts in the subclavian and 2 or 3 in the IJ position, the right IJ was accessed. After the wire was in, its position was checked with fluoroscopy. Then, a port pocket was made by infiltrating the skin of the chest wall with local anesthetic, making an incision, and creating a pocket with electrocautery. Once the pocket was excised to accommodate the port, the catheter was tunneled from the port pocket site to the wire exit site. A dilator and introducer were then placed over the wire. The wire and dilator were removed. This was done under fluoroscopic visualization. Then, the catheter was advanced through the introducer into the superior vena cava and the introducer was peeled away. The position was checked and found to be adequate and then the catheter was attached to the port. The port was placed in the pocket and secured to the chest wall using 2-0 Prolene stitches. Once the function of the port was checked and found to be adequate, closure was accomplished. This was done with 3-0 Vicryl in the subcutaneous layer and the skin was closed with 4-0 Prolene in a subcuticular fashion. Steri-Strips were applied. Attention was then turned to the right mastectomy. An incision was made in the superior breast following the line that had been marked preoperatively. Subcutaneous tissue was divided with electrocautery to create flaps extending medially to the sternum, superiorly to the clavicle, and laterally to the latissimus dorsi muscle. Then, an inferior incision was made to complete an ellipse around the nipple-areolar complex and subcutaneous tissue was again divided with electrocautery extending medially to the sternum, inferiorly to the rectus muscle, and laterally to the latissimus dorsi muscle. The breast was then elevated off the chest wall using electrocautery. Once it was off the chest, it was handed off as a specimen. The wound was inspected for hemostasis , which was achieved with electrocautery. A MILLY drain was placed through a stab wound in the anterior- inferior axillary line, and then closure was accomplished. Prior to closing, some additional skin from the edges of the incision was excised to fashion a better closure. A 2-0 Vicryl was used to reapproximate the subcutaneous tissue and the skin was closed with 4-0 Monocryl in a subcuticular fashion. Steri-Strips were applied at the end of the case. Attention was then turned to the left side here in a fashion similar to that which had been done on the right. An incision was made in the superior breast again following the line that had been marked preoperatively. Subcutaneous tissue was then divided with electrocautery medially to the sternum, superiorly to the clavicle, and laterally to the latissimus dorsi muscle. Once these flaps were complete, an incision was made in the inferior breast completing an ellipse around the nipple-areolar complex and again electrocautery was used to divide the subcutaneous tissue from the breast, extending medially to the sternum, inferiorly to the rectus muscle, and laterally to the latissimus dorsi muscle. The breast was then elevated off the chest wall using electrocautery. It should be mentioned that there was some points of bleeding, which were controlled with suture ligature when electrocautery did not appear adequate. Once the axillary tail of the breast was all that was left attached to the chest wall, the axillary dissection was begun, so that it would be in continuity with the breast. The pectoralis muscle was retracted medially and the axillary contents were swept posteriorly to the pectoralis muscle along the chest wall. Then, dissection at the apex of the axilla was done using primarily blunt dissection. Small blood and lymphatic vessels that approached the axillary fat pad were controlled with clips. The intercostobrachial nerve was identified and able to be dissected free from surrounding tissue such that the axillary contents were dissected free from around the nerve. Once all the axillary contents were brought out of the body, the specimen was marked in usual fashion, and the breast and axillary contents were handed off as the specimen. Hemostasis was achieved with a combination of electrocauteries, clips , and suture ligature. MILLY drains were placed on the left side, one under the flaps of the mastectomy and one in the axillary bed, then closure was accomplished. This was done with 2-0 Vicryl to reapproximate the subcutaneous tissue and the skin was closed with 4-0 Monocryl in a subcuticular fashion. Steri-Strips and dry fluffy dressings were applied to the breast incisions, and all sponge and instrument counts were correct. The patient tolerated the procedure well and was transferred to Recovery in a stable condition. [id number]/[facility] #: [id number] CRISTY
[2018-08-02] MEDS ORDERED: Insulin LISPRO* 1 UNITS UNIT SUBCUT ONE (13:08)
[2018-08-02] MEDS: Omeprazole CAP* 20 MG PO SCH (13:09)
[2018-08-02] MEDS: Heparin VIAL(*) 5000 UNITS/ML VIAL (FIVE THOUSAND) SUBCUT SCH (21:29)
[2018-08-03] MEDS: Insulin LISPRO* 1 UNITS UNIT SUBCUT SCH ×2 (00:17→06:10)
[2018-08-03] MEDS: oxyCODONE/Acetamin 5/325 MG* TAB PO PRN (04:42)
[2018-08-03 05:51] LABS: ABS Basophils 0.1 10^3/ul (0-0.2); ABS Eosinophils 0.5 10^3/ul (0-0.6); ABS Lymphocytes 2.8 10^3/ul (1.0-4.8); ABS Monocytes 0.9 10^3/ul (0-0.8); ABS Neutrophils 5.9 10^3/ul (1.5-7.7); ABS Nucleated RBC 0 10^3/ul; Eosinophil % 4.6 % (0-6); Hematocrit 25 % (35-47); Hemoglobin 8.2 g/dl (12.0-16.0); Lymphocyte % 27.5 % (25-47); Mean Corpuscular HGB Conc 33 g/dl (31-36); Mean Corpuscular Hemoglobin 29 pg (27-31); Mean Corpuscular Volume 89 fL (80-97); Mean Platelet Volume 8.2 um3 (7.4-10.4); Nucleated Red Blood Cells % 0; Platelet Count 211 10^3/ul (150-450); Red Blood Count 2.81 10^6/ul (4.00-5.40); Red Cell Distribution Width 13 % (10.5-15); White Blood Count 10.1 10^3/ul (3.5-10.8)
[2018-08-03] MEDS: Omeprazole CAP* 20 MG PO SCH (06:05)
[2018-08-03 06:07] LABS: EGFR Non-African American 19.9 (>60)
[2018-08-03] MEDS: Heparin VIAL(*) 5000 UNITS/ML VIAL (FIVE THOUSAND) SUBCUT SCH (08:12)
[2018-08-03] MEDS: Carvedilol TAB* 6.25 MG PO SCH ×2 (08:12→10:14)
[2018-08-03] MEDS: Torsemide TAB* 20 MG PO SCH ×2 (08:12→10:13)
[2018-08-03] MEDS: Losartan TAB* 25 MG PO SCH ×2 (08:12→10:13)
[2018-08-03] MEDS: Aspirin EC TAB* 81 MG TAB.EC PO SCH ×2 (08:12→10:15)
[2018-08-03] MEDS: amLODIPine TAB* 5 MG PO SCH ×2 (08:12→10:14)
[2018-08-03] MEDS: Acetaminophen TAB* 325 MG PO PRN ×2 (08:19→10:14)
[2018-08-03] MEDS: Ondansetron ODT TAB* 4 MG SL PRN (08:19)
[2018-08-03] MEDS: Atorvastatin* 40 MG TAB PO SCH ×2 (08:31→10:13)
[2018-08-03] MEDS ORDERED: Insulin LISPRO* 1 UNITS UNIT SUBCUT SCH (11:30)
--- NOTE | 2018-08-03 12:43 | PN ---
Progress Note - Progress Note Date of Service: 08/03/18 SOAP: Subjective: Pt seen and examined. Feeling much better today. Some nausea. Objective: Temp Pulse Resp BP Pulse Ox 98.1 F 92 18 135/55 97 08/03/18 07:47 08/03/18 07:47 08/03/18 08:00 08/03/18 07:47 08/03/18 07:47 a and o x3, nad lungs clear chest: dressing intact, Milly x3 serous Ext: less edema labs noted Cr up Assessment: POD2 b/l mastectomy. Dm elevated fs Plan: D/c home Close follow up MILLY drain teaching
[2018-08-03 12:58] VITALS: BP 122/50
[2018-08-04] MEDS ORDERED: Scopolamine PATCH Remove* 1 NOTE MISC PATCH OFF ONE (06:00)
== END 2018-08-03 13:20 | disposition home or self-care (01) | DRG 362 ==
LOC: AA 09:10 → SSU 19:34
PROVIDERS: ADMIT Surgery; ATTEND Surgery
PROC: 0JH63WZ Insertion of Totally Implantable Vascular Access Device into Chest Subcutaneous Tissue and Fascia, Percutaneous Approach (ICD-10-PCS; 2018-08-01)
PROC: 02HV33Z Insertion of Infusion Device into Superior Vena Cava, Percutaneous Approach (ICD-10-PCS; 2018-08-01)
PROC: B518YZA Fluoroscopy of Superior Vena Cava using Other Contrast, Guidance (ICD-10-PCS; 2018-08-01)
PROC: 0HTV0ZZ Resection of Bilateral Breast, Open Approach (ICD-10-PCS; principal; 2018-08-01 10:15)
PROC: 07T60ZZ Resection of Left Axillary Lymphatic, Open Approach (ICD-10-PCS; 2018-08-01 10:15)
DX: C50.212 Malignant neoplasm of upper-inner quadrant of left female breast (principal); C77.3 Secondary and unspecified malignant neoplasm of axilla and upper limb lymph nodes; I13.0 Hypertensive heart and chronic kidney disease with heart failure and stage 1 through stage 4 chronic kidney disease, or unspecified chronic kidney disease; N18.4 Chronic kidney disease, stage 4 (severe); Z17.0 Estrogen receptor positive status [ER+]; I25.119 Atherosclerotic heart disease of native coronary artery with unspecified angina pectoris; I50.9 Heart failure, unspecified; E11.22 Type 2 diabetes mellitus with diabetic chronic kidney disease; E66.9 Obesity, unspecified; M54.9 Dorsalgia, unspecified; N62 Hypertrophy of breast; M54.2 Cervicalgia; F41.9 Anxiety disorder, unspecified; E78.5 Hyperlipidemia, unspecified; J45.909 Unspecified asthma, uncomplicated; Z68.33 Body mass index [BMI] 33.0-33.9, adult; Z79.82 Long term (current) use of aspirin; Z79.4 Long term (current) use of insulin; Z79.891 Long term (current) use of opiate analgesic; Z79.899 Other long term (current) drug therapy; Z88.5 Allergy status to narcotic agent; Z88.0 Allergy status to penicillin; Z88.8 Allergy status to other drugs, medicaments and biological substances; Z80.3 Family history of malignant neoplasm of breast
CPT/HCPCS: 36415; 71045; 76000; 80048; 80053; 83735; 84100; 85025; A9270-GY; C1788; J0360; J0690; J0780; J1170; J1642; J1644; J1815; J1940; J2250; J2405; J2704; J3010; J3490

== ENCOUNTER 2018-09-11 14:59 | Inpatient (IN) | payer OTHER ==
[2018-09-11] MEDS ORDERED: ALPRAZolam TAB* 0.25 MG PO PRN (16:19)
--- OUTSIDE RECORDS SUMMARY | 2018-09-11 16:21 | XMS REPORT ---
:1960 External Reference #:[id number] Author Organization [facility] Address [address] [place] [address] [place] [address] Phone [phone] Care Team Providers Name Role Phone Benjamin Fontana MD Primary Care Physician Unavailable Payers Type Date Identification Numbers Payment Provider Subscriber Medicaid Policy Number: [id number] Medicaid Ruth Ann Blevins Group Name: 1 1 [address] PayID: [id number] [place] [address] Commercial Effective: 2017 Policy Number: Nancy Care Ruth Ann Blevins [id number] Expires: 2019 Group Number: 80% [address] PayID: [id number] [address] Problems Date Description Provider Status Onset: 06/26/2018 [...] Active Onset: 06/26/2018 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 Lancets 07/23 Active Misc 270un use its three-four Brock, [facility] times daily and as needed Basaglar Kwikpen 07/10 Active Solution 100Unit/M 15ml 28 units in Pen-Injec L Am and 25 Brock, [facility] t units in PM(see 07/30/18 triage) Pen [place] 07/10 Active Misc 31G X 5 100un use with E11.9 Martell mm its basaglar and Brock, [facility] humalog subq everyday Glucose Meter 07/10 Active Strips 100un for use 3-4 E11.9 Nuris Test Strips its times daily Varn, Advanced N.P. Methocarbamol 07/10 Active Tablets 750mg 60tab take 1 tablet M54.2 s every six Brock, [facility] hours as needed for pain. Torsemide 06/26 Active Tablets 20mg 120ta Take 2 tabs I50.9 bs twice a day. MD Yaron will [...] twice a day Vitamin D Active Tablets 43264 1 twice a Unknown (Cholecalciferol / week ) Letrozole Active Tablets 2.5mg take 1 tab by Unknown /0000 mouth daily cycle days 3-7. Oxycodone-Acetam Active Tablets 1 tablet q6 Unknown inophen / hours as needed for pain Tramadol HCL Active Tablets 50mg 1 daily as Unknown /0000 needed Losartan Active Tablets 25mg 1 by mouth Unknown Potassium / every day Humalog Kwikpen Active Solution 100Unit/M 6 units with Unknown /0000 Pen-Injec L each meal t Ventolin HFA Active Aerosol 108(90Bas 2 puffs by Unknown /0000 e) mouth four mcg/Act times a day as needed Tylenol Extra Active Tablets 500mg 2 by mouth 3 Unknown Strength /0000 times daily as needed Metoclopramide Active Tablets 10mg Take 1 Tablet Unknown HCL /0000 By Mouth Every 6 Hours as Needed For Nausea Oxycodone-Acetam 07/28 Hx Tablets 5-325mg 20tab 1--2 tab by Amber Zhao inophen /2017 s mouth every Foster, 4- 6 hours as needed for pain Cyclobenzaprine 07/10 Hx Tablets 10mg 60tab one by mouth M54.2 Martell HCL s three times a LISANDRO Gutiérrez - day as needed 07/10 spasm Furosemide Hx Tablets 40mg 1 by mouth Unknown /0000 twice daily. - will start 06/30 Losartan Hx Tablets 100mg 1 by mouth Unknown Potassium /0000 every day - 06/18 Medications Administered in Office Medication Date Status Form Strength Qnty SIG Indications Ordering Provider Inj, 07/16/ Administered Injection Reginaldo Kam, 0.1 2018 DO Leeroy MG FACC Aminophylline 07/16/ Administered Injection Reginaldo SRamos 2017 DO Leeroy FACC Technetium TC 07/16/ Administered Injection Reginaldo S. 99M Tetrofosmin, 2017 DO Leeroy Per Unit Dose Up FACC To 40 Millicuries Vital Signs Date Vital Result Comment 08/18/2018 Heart Rate 74 /min Respiratory Rate 16 /min Body Temperature 98.1 F 08/14/2018 Heart Rate 84 /min Respiratory Rate 18 /min Body Temperature 97.4 F 08/07/2018 Heart Rate 84 /min Respiratory Rate 16 /min Body Temperature 97.5 F 07/28/2018 Height 60.25 inches 5'0.25" Weight 169.00 [...] Color Straw Urine Appearance Clear Urine Specific [place] 1.006 Low 1.010-1.030 Urine pH 7.0 5-9 [...] in selective patients <6.0%. Please refer to [place] Diabetes Association diabetic care guidelines for further [...] 4 SEE RESULT BELOW Name: RUTH ANN BLEVINS : [address]: Nathaniel Noe MD Acct: [id number] Unit: [id number] AGE: 57 Location: [place] [address] Re06/16/18 SEX: F Status: ADM Simi SPEC: [id number] RANDEE: 06/16/[address]: Brooklyn Candelario MD REQ: [id number] RECD: 06/16/18 STATUS: KARI CRUZ DR: Martell Gutiérrez [facility] _ SOURCE: URINE SPDESC: ORDERED: Urine Culture Procedure Result Reported Site Urine Culture Final 06/17/18- 0751 ML No Growth (<1,000 CFU/mL) * ML - Main Lab . END OF REPORT DEPARTMENT OF PATHOLOGY, [address] [place] [address] Александр Dubose M.D. Director [facility] # [id number] [facility] Severe Sepsis and Septic Shock Management [...] developed and its performance characteristics determined by [facility] in a manner consistent with CLIA requirements. This test has not been cleared or approved by the U.S. Food and Drug Administration. Test Performed by: [facility] - [address] [address] Because ethnic data is not always [...] dialysis) Procedures Date CPT Code Description Status 08/01/2018 41706 Fluoroscopic Guidance For Cent Completed 08/01/2018 00847 Insertion Tunneled Cent Venous Cathr W Subcut Port 5 Completed Yrs Or Oldr 08/01/2018 05065 Insertion Tunneled Cent Venous Cathr W Subcut Port 5 Completed Yrs Or Oldr 08/01/2018 61594 Mastectomy Mod Radical Not Including Pectoralis Major Completed Muscle 08/01/2018 46266 Mastectomy Mod Radical Not Including Pectoralis Major Completed Muscle 08/01/2018 36991 Mastectomy Simple Complete Completed 08/01/2018 78406 Mastectomy Simple Complete Completed 07/31/2018 Diabetic Retinal Eye Exam Completed 07/16/2018 53320 Stress Test Completed 07/16/2018 47837 Myocardial Perfusion Imaging Tomographic (Spect) Completed Multiple Studies 07/01/2018 57106 EKG Tracing & Interpretation Completed 06/16/2018 24419 ECHO Transthorasic Realtime 2D W Doppler & Color Flow Completed Hosp Encounters Type Date Location Provider CPT E/M Dx Office Visit 07/10/2018 1:00p [facility] Internal [place] - [place] [address] D50.9 [place] Z79.4 E11.22 C50.912 I25.119 M54.2 G47.00 R07.9 R06.02 N18.4 Office Visit 07/02/2018 10:15a [facility] [place], [address] C50.912 Sim GE Office Visit 07/01/2018 11:15a [facility] Reginaldo Umaña, [address] I25.119 [facility] DO FACC Z01.810 N18.9 I50.32 E66.8 E11.69 I12.9 E78.5 C50.412 D64.9 Office Visit 06/26/2018 10:30a [facility] [place] [address] I50.31 [employer] I50.9 N18.4 I25.119 C50.412 E11.22 D50.9 M54.2 Office Visit 06/17/2018 1:26p [facility] Itz Stringer, [address] I50.33 Hospitalists Juan Miguel E11.22 N18.4 Office Visit 06/17/2018 12:01p [facility] [place] Glez, [address] R06.02 [facility] Juan Miguel Office Visit 06/16/2018 1:25p [facility] Curt Blanchard, [address] R06.02 Hospitalists N.PRamos R07.9 M54.2 R51 Plan of Care Future Appointment(s):08/27/2018 11:15 am - Simin Box NP at [facility]10/15/2018 10:00 am - Benjamin Fontana M.D. at [facility] Internal Medicine [facility]08/18/2018 - Milo Church, PAC50.912 Malignant neoplasm of unspecified site of left female breastFollow up:7-10 daysN60.89 Other benign mammary dysplasias of unspecified ytcxvrY58.01 Encounter for change or removal of surgical wound dressing
--- OUTSIDE RECORDS SUMMARY | 2018-09-11 16:21 | XMS REPORT ---
:1960 External Reference #:[id number] Author Organization [facility] Address [address] [place] [address] [place] [address] Phone [phone] Care Team Providers Name Role Phone Benjamin Fontana MD Primary Care Physician Unavailable Payers Type Date Identification Numbers Payment Provider Subscriber Medicaid Policy Number: [id number] Medicaid Ruth Ann Blevins Group Name: 1 1 [address] PayID: [id number] [place] [address] Commercial Effective: 2017 Policy Number: Nancy Care Ruth Ann Blevins [id number] Expires: 2019 Group Number: 80% [address] PayID: [id number] [address] Problems Date Description Provider Status Onset: 06/26/2018 [...] Active Onset: 06/26/2018 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 s every day Umaña, DO FACC Blood Glucose 07/23 Active Kit W/Device 1unit check blood E11.22 Nuris Monitoring System s sugar3-4 Varn, times daily N.P. Lancets 07/23 Active Misc 270un use E11.22 its three-four Brock DIAL MOUNTER times daily and as needed E 11.22 - last seen on 07/10/18 Basaglar Kwikpen 07/10 Active Solution 100Unit/M 15ml 28 units in Pen-Injec L Am and 25 Brock, DIAL MOUNTER t units in PM(see 07/30/18 triage) Pen [place] 01/10" 07/10 Active Misc 31G X 5 100un use with E11.9 mm its basaglar Brock, DIAL MOUNTER and humalog subq everyday Glucose Meter Test 07/10 Active Strips 100un for use 3-4 E11.9 Nuris Strips its times daily Varn, N.P. Methocarbamol 07/10 Active Tablets 750mg 60tab take 1 M54.2 Martell s tablet LISANDRO Gutiérrez every six hours as needed for pain. Torsemide 06/26 Active Tablets 20mg 90tab Take 1 I50.9 Reginaldo S. s tablet Umaña, daily. DO FACC Taken an extra tablet for worsening edema. Nitroglycerin 06/26 Active Tablets 0.4mg 14tab Take 1 tab I25.119 Moe Sub s sublinguall MD Yaron y as needed for chest pain. Can repeat every 5 minutes (for two more times) Ferrous Gluconate 06/26 Active Tablets 324(37.5F 30tab Take 1 tab D50.9 Moe e) mg s daily. MD Yaron Alprazolam Active as needed Unknown Amlodipine Active Tablets 5mg 90tab 1 by mouth Reginaldo S. Besylate / s every day Umaña, DO FACC Aspir-Low Active Tablets 81mg 30tab 1 by mouth Martell / DR s every day LISANDRO Gutiérrez Atorvastatin Active Tablets 40mg 30tab 1 by mouth Laura Calcium / s every day Nakita, DO Carvedilol Active Tablets 12.5mg 180ta 1 by mouth Reginaldo S. / bs twice a day Umaña, DO FAC Vitamin D Active Tablets 67933 1 twice a Unknown (Cholecalciferol) week Letrozoleletrozole Active Tablets 2.5mg 14tab take 1 tab Martell s by mouth LISANDRO Gutiérrez daily cycle days 3-7. Oxycodone-Acetamin Active Tablets 1 tablet q6 Unknown oph hours as needed for pain Tramadol HCL Active Tablets 50mg 1 daily as Unknown needed Humalog Kwikpen Active Solution 100Unit/M 6 units Unknown Pen-Injec L with each t meal Ventolin HFA Active Aerosol 108(90Bas 2 puffs by Unknown e) mouth four mcg/Act times a day as needed Tylenol Extra Active Tablets 500mg 2 by mouth Unknown Strength 0000 3 times daily as needed Metoclopramide HCL Active Tablets 10mg Take 1 Unknown Tablet By Mouth Every 6 Hours as Needed For Nausea Oxycodone-Acetamin 07/28 Hx Tablets 5-325mg 20tab 1--2 tab by Amber Zhao oph s mouth every Foster, 4- 6 hours as needed for pain Cyclobenzaprine 07/10 Hx Tablets 10mg 60tab one by M54.2 Martell HCL s mouth three LISANDRO Gutiérrez - times a day 07/10 as needed /2017 spasm Furosemide Hx Tablets 40mg 1 by mouth Unknown /0000 twice - daily. will 06/30 start Losartan Potassium Hx Tablets 100mg 1 by mouth Unknown /0000 every day - 06/18 Losartan Potassium 00 Hx Tablets 25mg 90tab 1 by mouth Reginaldo S. /0000 s every day Madelyn Umaña DO FACC 08/20 Medications Administered in Office Medication Date Status Form Strength Qnty SIG Indications Ordering Provider Inj, 07/16/ Administered Injection Reginaldo Easley Regadenoson, 0.1 2017 DO Leeroy MG FACC Aminophylline 07/16/ Administered Injection Reginaldo S. 2017 DO Leeroy FACC Technetium TC 07/16/ Administered Injection Reginaldo SRamos 99M Tetrofosmin, 2017 DO Leeroy Per Unit Dose Up FACC To 40 Millicuries Vital Signs Date Vital Result Comment 08/25/2018 Heart Rate 72 /min Respiratory Rate 16 /min Body Temperature 98.1 F 08/18/2018 Heart Rate 74 /min Respiratory Rate [...] Color Straw Urine Appearance Clear Urine Specific [place] 1.006 Low 1.010-1.030 Urine pH 7.0 5-9 [...] in selective patients <6.0%. Please refer to [place] Diabetes Association diabetic care guidelines for further [...] [address]: Nathaniel Noe MD Acct: [id number] Unit: [id number] AGE: 57 Location: [place] [address] Re06/16/18 SEX: F Status: ADM Simi SPEC: [id number] RANDEE: 06/16/[address] [facility] [address]: Brooklyn Candelario MD REQ: [id number] RECD: 06/16/18 STATUS: KARI CRUZ DR: Martell Gutiérrez DIAL MOUNTER _ SOURCE: URINE SPDESC: ORDERED: Urine Culture Procedure Result Reported Site Urine Culture Final 06/17/18- 0751 ML No Growth (<1,000 CFU/mL) * ML - Main Lab . END OF REPORT DEPARTMENT OF PATHOLOGY, [address] [place] [address] Александр Dubose M.D. Director [facility] # [id number] [facility] Severe Sepsis and Septic Shock Management [...] developed and its performance characteristics determined by [facility] in a manner consistent with CLIA requirements. This test has not been cleared or approved by the U.S. Food and Drug Administration. Test Performed by: [address], [place] [address] 10 Because ethnic data is not always [...] Procedures Date CPT Code Description Status 08/01/2018 38765 Fluoroscopic Guidance For Cent Completed 08/01/2018 65543 Insertion Tunneled Cent Venous Cathr W Subcut Port 5 Completed Yrs Or Oldr 08/01/2018 18641 Insertion Tunneled Cent Venous Cathr W Subcut Port 5 Completed Yrs Or Oldr 08/01/2018 08050 Mastectomy Mod Radical Not Including Pectoralis Major Completed Muscle 08/01/2018 17872 Mastectomy Mod Radical Not Including Pectoralis Major Completed Muscle 08/01/2018 83234 Mastectomy Simple Complete Completed 08/01/2018 45265 Mastectomy Simple Complete Completed 07/31/2018 Diabetic Retinal Eye Exam Completed 07/16/2018 96109 Stress Test Completed 07/16/2018 97172 Myocardial Perfusion Imaging Tomographic (Spect) Completed Multiple Studies 07/01/2018 32169 EKG Tracing & Interpretation Completed 06/16/2018 29061 ECHO Transthorasic Realtime 2D W Doppler & Color Flow Completed Hosp Encounters Type Date Location Provider CPT E/M Dx Office Visit 07/10/2018 1:00p [facility] Internal Medicine - [place] [address] D50.9 [place] Z79.4 E11.22 C50.912 I25.119 M54.2 G47.00 R07.9 R06.02 N18.4 Office Visit 07/02/2018 10:15a [facility] [place], [address] C50.912 [facility] Office Visit 07/01/2018 11:15a [facility] Reginaldo Umaña, [address] I25.119 [facility] DO FACC Z01.810 N18.9 I50.32 E66.8 E11.69 I12.9 E78.5 C50.412 D64.9 Office Visit 06/26/2018 10:30a [facility] [place] [address] I50.31 [facility] I50.9 N18.4 I25.119 C50.412 E11.22 D50.9 M54.2 Office Visit 06/17/2018 1:26p [facility] Itz Stringer, [address] I50.33 Hospitalists MCarlito E11.22 N18.4 Office Visit 06/17/2018 12:01p [facility] Tiago Glez, [address] R06.02 Sim Bullard Office Visit 06/16/2018 1:25p [facility] Curt Blanchard, [address] R06.02 Hospitalists N.PRamos R07.9 M54.2 R51 Plan of Care Future Appointment(s):10/15/2018 10:00 am - Benjamin Fontana M.D. at [facility] Internal Medicine [facility]08/25/2018 - Milo Church, PAC50.912 Malignant neoplasm of unspecified site of left female breastFollow up:refer to [facility] 08/27 w/ Dr. LaZ48.01 Encounter for change or removal of surgical wound dressing
--- OUTSIDE RECORDS SUMMARY | 2018-09-11 16:21 | XMS REPORT ---
:1960 External Reference #:[id number] Author Organization [facility] Address [address] [place] [address] [place] [address] Phone [phone] Care Team Providers Name Role Phone Benjamin Fontana MD Primary Care Physician Unavailable Payers Type Date Identification Numbers Payment Provider Subscriber Medicaid Policy Number: [id number] Medicaid Ruth Ann Blevins Group Name: 1 1 [address] PayID: [id number] [place] [address] Commercial Effective: 2017 Policy Number: Nancy Care Ruth Ann Blevins [id number] Expires: 2019 Group Number: 80% [address] PayID: [id number] [address] Problems Date Description Provider Status Onset: 06/26/2018 [...] Active Onset: 06/26/2018 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 Moe Marrufo MD Active ang pctrs Onset: 06/26/2018 Iron deficiency anemia Moe Marrufo MD Active Onset: 06/26/2018 Neck pain Moe Marrufo MD Active Family History Date Family Member(s) Problem(s) Comments General Breast Cancer paternal aunt, maternal grandmother General Diabetes Father Prostate Cancer Onset: (age 69 Years) Father [place] Mother Diabetes Mother Heart Disease First Sister [...] Active Misc 270un use its three-four Brock, ONBOARDING SPECIALIST times daily and as needed Basaglar Kwikpen 07/10 Active Solution 100Unit/M 15ml 28 units in Pen-Injec L Am and 25 Brock, ONBOARDING SPECIALIST t units in PM(see 07/30/18 triage) Pen [place] 07/10 Active Misc 31G X 5 100un use with E11.9 Martell mm its basaglar and Brock, ONBOARDING SPECIALIST humalog subq everyday Glucose Meter 07/10 Active Strips 100un for use 3-4 E11.9 Nuris Test Strips its times daily Varn, Advanced N.P. Methocarbamol 07/10 Active Tablets 750mg 60tab take 1 tablet M54.2 s every six Brock, ONBOARDING SPECIALIST hours as needed for pain. Torsemide 06/26 [...] twice a day Vitamin D Active Tablets 45880 1 twice a Unknown (Cholecalciferol / week [...] Millicuries Vital Signs Date Vital Result Comment 08/14/2018 Heart Rate 84 /min Respiratory Rate [...] Color Straw Urine Appearance Clear Urine Specific [place] 1.006 Low 1.010-1.030 Urine pH 7.0 5-9 [...] in selective patients <6.0%. Please refer to [place] Diabetes Association diabetic care guidelines for further [...] [address]: Nathaniel Noe MD Acct: [id number] Unit: [id number] AGE: 57 Location: [place] [address] Re06/16/18 SEX: F Status: ADM Simi SPEC: [id number] RANDEE: 06/16/[address]: Brooklyn Candelario MD REQ: [id number] RECD: 06/16/18 STATUS: KARI CURZ DR: Martell Gutiérrez ONBOARDING SPECIALIST _ SOURCE: URINE SPDESC: ORDERED: Urine Culture Procedure Result Reported Site Urine Culture Final 06/17/18- 0751 ML No Growth (<1,000 CFU/mL) * ML - Main Lab . END OF REPORT DEPARTMENT OF PATHOLOGY, [address] [place] [address] Александр Dubose M.D. Director [facility] # [id number] [facility] Severe Sepsis and Septic Shock Management [...] developed and its performance characteristics determined by [facility] in a manner consistent with CLIA requirements. This test has not been cleared or approved by the U.S. Food and Drug Administration. Test Performed by: [address] [address] Because ethnic data is not always [...] Procedures Date CPT Code Description Status 08/01/2018 88239 Fluoroscopic Guidance For Cent Completed 08/01/2018 46238 Insertion Tunneled Cent Venous Cathr W Subcut Port 5 Completed Yrs Or Oldr 08/01/2018 98549 Insertion Tunneled Cent Venous Cathr W Subcut Port 5 Completed Yrs Or Oldr 08/01/2018 28510 Mastectomy Mod Radical Not Including Pectoralis Major Completed Muscle 08/01/2018 27415 Mastectomy Mod Radical Not Including Pectoralis Major Completed Muscle 08/01/2018 63288 Mastectomy Simple Complete Completed 08/01/2018 30274 Mastectomy Simple Complete Completed 07/31/2018 Diabetic Retinal Eye Exam Completed 07/16/2018 79367 Stress Test Completed 07/16/2018 22660 Myocardial Perfusion Imaging Tomographic (Spect) Completed Multiple Studies 07/01/2018 42942 EKG Tracing & Interpretation Completed 06/16/2018 71237 ECHO Transthorasic Realtime 2D W Doppler & Color Flow Completed Hosp Encounters Type Date Location Provider CPT E/M Dx Office Visit 07/10/2018 1:00p [facility] Internal Medicine - [place] [address] D50.9 [place] Z79.4 E11.22 C50.912 I25.119 M54.2 G47.00 R07.9 R06.02 N18.4 Office Visit 07/02/2018 10:15a [facility], [address] C50.912 Sim GE Office Visit 07/01/2018 11:15a [facility] Reginaldo Umaña, [address] I25.119 [facility] DO FACC Z01.810 N18.9 I50.32 E66.8 E11.69 I12.9 E78.5 C50.412 D64.9 Office Visit 06/26/2018 10:30a [facility] [place] [address] I50.31 Fryer Operator I50.9 N18.4 I25.119 C50.412 E11.22 D50.9 M54.2 Office Visit 06/17/2018 1:26p [facility] Itz Stringer, [address] I50.33 Hospitalists Juan Miguel E11.22 N18.4 Office Visit 06/17/2018 12:01p [facility] Tiago Glez, [address] R06.02 [facility] Juan Miguel Office Visit 06/16/2018 [facility], [address] R06.02 Hospitalists Mayelin R07.9 M54.2 R51 Plan of Care Future Appointment(s):08/21/2018 2:00 pm - MAYLIN Suresh at [facility]10/15/2018 10:00 am - Benjamin Fontana M.D. at [facility] Internal Medicine [facility]
[2018-09-11] MEDS ORDERED: Dextrose 50% Syringe 50 ML* 25 GM/50 ML SYRINGE IV PUSH PRN (16:22)
[2018-09-11] MEDS: NS 0.9% 1000 ML* 1,000 ML IV SCH ×2 (16:47→23:30)
[2018-09-11] MEDS: Insulin LISPRO* 1 UNITS UNIT SUBCUT SCH ×2 (16:54→21:34)
[2018-09-11] MEDS: Insulin GLARGINE(*) 1 UNITS UNIT SUBCUT SCH (16:55)
[2018-09-11] MEDS: traMADol TAB* 50 MG PO PRN (17:22)
[2018-09-11] MEDS: Heparin VIAL(*) 5000 UNITS/ML VIAL (FIVE THOUSAND) SUBCUT SCH (21:34)
[2018-09-11] MEDS: Carvedilol TAB* 6.25 MG PO SCH (21:34)
[2018-09-12] MEDS: Insulin GLARGINE(*) 1 UNITS UNIT SUBCUT SCH ×2 (04:55→17:39)
[2018-09-12] MEDS: Heparin VIAL(*) 5000 UNITS/ML VIAL (FIVE THOUSAND) SUBCUT SCH ×3 (04:55→20:43)
[2018-09-12 05:17] LABS: ABS Basophils 0.1 10^3/ul (0-0.2); ABS Eosinophils 0.5 10^3/ul (0-0.6); ABS Lymphocytes 3.4 10^3/ul (1.0-4.8); ABS Monocytes 0.6 10^3/ul (0-0.8); ABS Neutrophils 3.1 10^3/ul (1.5-7.7); ABS Nucleated RBC 0 10^3/ul; Eosinophil % 6.6 % (0-6); Hematocrit 23 % (35-47); Hemoglobin 7.7 g/dl (12.0-16.0); Lymphocyte % 43.5 % (25-47); Mean Corpuscular HGB Conc 33 g/dl (31-36); Mean Corpuscular Hemoglobin 30 pg (27-31); Mean Corpuscular Volume 89 fL (80-97); Nucleated Red Blood Cells % 0; Platelet Count 288 10^3/ul (150-450); Red Cell Distribution Width 14 % (10.5-15); White Blood Count 7.7 10^3/ul (3.5-10.8)
[2018-09-12] MEDS: Ondansetron ODT TAB* 4 MG SL PRN ×2 (05:25→11:40)
[2018-09-12 05:34] LABS: EGFR Non-African American 15.2 (>60)
[2018-09-12] MEDS: NS 0.9% 1000 ML* 1,000 ML IV SCH ×3 (06:23→20:42)
[2018-09-12] MEDS: Insulin LISPRO* 1 UNITS UNIT SUBCUT SCH ×4 (08:25→20:42)
[2018-09-12] MEDS: Cholecalciferol TAB* 1000 UNITS PO SCH (08:28)
[2018-09-12] MEDS: Aspirin EC TAB* 81 MG TAB.EC PO SCH (08:29)
[2018-09-12] MEDS: Carvedilol TAB* 6.25 MG PO SCH ×2 (08:29→20:41)
[2018-09-12] MEDS: amLODIPine TAB* 5 MG PO SCH (08:29)
[2018-09-12] MEDS: Atorvastatin* 40 MG TAB PO SCH (08:30)
[2018-09-12] MEDS: LETROZOLE 2.5 MG PO SCH (08:30)
--- NOTE | 2018-09-12 10:18 | PN ---
Progress Note - Progress Note Date of Service: 09/12/18 SOAP: Subjective: []Presented with 4 days of nausea and vomiting. Was seen in clinic for IVF and labs with ARF on CRI. She has been getting fluids and feels a little better. Still with nausea. No fevers. Course of out patient antibiotics completed yesterday. Alprazolam (Xanax Tab*) 0.25 mg PO DAILY PRN PRN Reason: ANXIETY Amlodipine Besylate (Norvasc Tab*) 5 mg PO QAM [facility] Last Admin: 09/12/18 08:29 Dose: 5 mg Aspirin (Aspirin Ec Tab*) 81 mg PO QAM [facility] Last Admin: 09/12/18 08:29 Dose: 81 mg Atorvastatin Calcium (Lipitor*) 40 mg PO QAM [facility] Last Admin: 09/12/18 08:30 Dose: 40 mg Carvedilol (Coreg Tab*) 12.5 mg PO BID [facility] Last Admin: 09/12/18 08:29 Dose: 12.5 mg Cholecalciferol (Vitamin D Tab*) 5,000 units PO DAILY [facility] Last Admin: 09/12/18 08:28 Dose: 5,000 units Dextrose (D50w Syringe 50 Ml*) 12.5 gm IV PUSH .FOR FS < 60 - SS PRN PRN Reason: FS < 60 Heparin Sodium (Porcine) (Heparin Flush Port (Ivad)) 5 ml FLUSH DAILY [facility]; Protocol Last Admin: 09/12/18 08:30 Dose: Not Given Heparin Sodium (Porcine) (Heparin Vial(*)) 5,000 units SUBCUT Q8HR [facility] Last Admin: 09/12/18 04:55 Dose: 5,000 units Sodium Chloride (Ns 0.9% 1000 Ml*) 1,000 mls @ 150 mls/hr IV PER RATE [facility] Last Admin: 09/12/18 06:23 Dose: 150 mls/hr Insulin Glargine (Lantus(*)) 28 units SUBCUT Q12H [facility] Last Admin: 09/12/18 04:55 Dose: 28 unit Insulin Human Lispro (Humalog*) 0 units SUBCUT ACHS [facility]; Protocol Last Admin: 09/12/18 08:25 Dose: Not Given Letrozole (Femara (Nf)) 2.5 mg PO QAM [facility]; Protocol Last Admin: 09/12/18 08:30 Dose: Not Given Ondansetron HCl (Zofran Odt Tab*) 4 mg SL Q6H PRN PRN Reason: NAUSEA/VOMITING Last Admin: 09/12/18 05:25 Dose: 4 mg Tramadol HCl (Ultram*) 50 mg PO DAILY PRN PRN Reason: PAIN Last Admin: 09/11/18 17:22 Dose: 50 mg Objective: [] Vital Signs Temp Pulse Resp BP Pulse Ox 97.6 F 66 18 112/43 98 09/12/18 05:50 09/12/18 05:50 09/12/18 08:56 09/12/18 05:50 09/12/18 05:50 HEENT - Conj pale, no oral lesions CTA RRR S1S2 Chest with both wounds packed, no overt infections +BS obese no FRIEDA Assessment: []58 yo s/p BL mastectomy for local breast cancer c/b bilateral wound infections. Presents with 4 days nausea on oral antibiotics, labs with acute on chronic renal failure. Plan: []1. ARF. Suspect nausea from antibiocs and dehydration. Will continue IV hydration. If remains elevated tomorrow, check renal US 2. Nausea likely second to antibiotics but is persistent. May have gastroparesis. Try Reglan PRN. 3. Hold additional antibiotics. 4. Continue Lantus but will monitor glucose in setting of ARF., 5. Chemotherapy and Femara on hold. 6. Anemia. Check Iron, B12, MMA and Epo
[2018-09-12] MEDS ORDERED: Metoclopramide TAB* 10 MG PO PRN (10:24)
[2018-09-12] MEDS: traMADol TAB* 50 MG PO PRN (20:41)
[2018-09-13] MEDS: NS 0.9% 1000 ML* 1,000 ML IV SCH (03:27)
[2018-09-13] MEDS: Heparin VIAL(*) 5000 UNITS/ML VIAL (FIVE THOUSAND) SUBCUT SCH ×3 (04:49→22:35)
[2018-09-13] MEDS: Insulin GLARGINE(*) 1 UNITS UNIT SUBCUT SCH ×2 (04:49→17:47)
[2018-09-13 05:11] LABS: ABS Basophils 0.1 10^3/ul (0-0.2); ABS Eosinophils 0.5 10^3/ul (0-0.6); ABS Lymphocytes 2.7 10^3/ul (1.0-4.8); ABS Monocytes 0.6 10^3/ul (0-0.8); ABS Neutrophils 3.1 10^3/ul (1.5-7.7); ABS Nucleated RBC 0 10^3/ul; Eosinophil % 7.6 % (0-6); Hematocrit 22 % (35-47); Hemoglobin 7.4 g/dl (12.0-16.0); Lymphocyte % 38.5 % (25-47); Mean Corpuscular HGB Conc 34 g/dl (31-36); Mean Corpuscular Hemoglobin 30 pg (27-31); Mean Corpuscular Volume 89 fL (80-97); Nucleated Red Blood Cells % 0.1; Platelet Count 272 10^3/ul (150-450); Red Blood Count 2.48 10^6/ul (4.00-5.40); Red Cell Distribution Width 14 % (10.5-15); White Blood Count 6.9 10^3/ul (3.5-10.8)
[2018-09-13] MEDS: Ondansetron ODT TAB* 4 MG SL PRN (07:55)
[2018-09-13] MEDS ORDERED: Meclizine TAB* 12.5 MG PO PRN (09:39)
[2018-09-13] MEDS ORDERED: NS 0.9% 1000 ML* 1,000 ML IV SCH (09:39)
--- NOTE | 2018-09-13 09:39 | PN ---
Progress Note - Progress Note Date of Service: 09/13/18 SOAP: Subjective: []No better, nausea and room spinning. Cannot eat, cannot walk w/o holding onto something to help steady. Alprazolam (Xanax Tab*) 0.25 mg PO DAILY PRN PRN Reason: ANXIETY Amlodipine Besylate (Norvasc Tab*) 5 mg PO QAM [facility] Last Admin: 09/12/18 08:29 Dose: 5 mg Aspirin (Aspirin Ec Tab*) 81 mg PO QAM [facility] Last Admin: 09/12/18 08:29 Dose: 81 mg Atorvastatin Calcium (Lipitor*) 40 mg PO QAM [facility] Last Admin: 09/12/18 08:30 Dose: 40 mg Carvedilol (Coreg Tab*) 12.5 mg PO BID [facility] Last Admin: 09/12/18 20:41 Dose: 12.5 mg Cholecalciferol (Vitamin D Tab*) 5,000 units PO DAILY [facility] Last Admin: 09/12/18 08:28 Dose: 5,000 units Dextrose (D50w Syringe 50 Ml*) 12.5 gm IV PUSH .FOR FS < 60 - SS PRN PRN Reason: FS < 60 Heparin Sodium (Porcine) (Heparin Flush Port (Ivad)) 5 ml FLUSH DAILY [facility]; Protocol Last Admin: 09/12/18 08:30 Dose: Not Given Heparin Sodium (Porcine) (Heparin Vial(*)) 5,000 units SUBCUT Q8HR [facility] Last Admin: 09/13/18 04:49 Dose: 5,000 units Sodium Chloride (Ns 0.9% 1000 Ml*) 1,000 mls @ 150 mls/hr IV PER RATE [facility] Last Admin: 09/13/18 03:27 Dose: 150 mls/hr Insulin Glargine (Lantus(*)) 28 units SUBCUT Q12H [facility] Last Admin: 09/13/18 04:49 Dose: 28 unit Insulin Human Lispro (Humalog*) 0 units SUBCUT ACHS [facility]; Protocol Last Admin: 09/12/18 20:42 Dose: 2 unit Letrozole (Femara (Nf)) 2.5 mg PO QAM [facility]; Protocol Last Admin: 09/12/18 08:30 Dose: Not Given Metoclopramide HCl (Reglan Tab*) 10 mg PO Q6H PRN PRN Reason: NAUSEA Ondansetron HCl (Zofran Odt Tab*) 4 mg SL Q6H PRN PRN Reason: NAUSEA/VOMITING Last Admin: 09/12/18 11:40 Dose: 4 mg Tramadol HCl (Ultram*) 50 mg PO DAILY PRN PRN Reason: PAIN Last Admin: 09/12/18 20:41 Dose: 50 mg Objective: [] Vital Signs Temp Pulse Resp BP Pulse Ox 97.9 F 80 16 158/67 97 09/13/18 03:22 09/13/18 03:22 09/13/18 03:22 09/13/18 03:22 09/13/18 03:22 HEENT - Conj pale, no oral lesions CTA RRR S1S2 Chest with both wounds packed, no overt infections +BS obese no FRIEDA Nuero- some nystagmus on left gaze. normal finger to nose, rapid movement, normal strength. we did not walk. Assessment: []58 yo s/p BL mastectomy for local breast cancer c/b bilateral wound infections. Presents with 4 days nausea on oral antibiotics, labs with acute on chronic renal failure. Renal function better but nausea has been persistent off of antibiotics. Appears to have vertigo. Plan: []1. ARF. Suspect nausea from antibiocs and dehydration. Will continue IV hydration and is near baseline 2. Nausea. - Antivert 25 mg q 6 prn - check MRI brain evaluate occult CVA 3. Hold additional antibiotics. 4. Continue Lantus but will monitor glucose in setting of ARF., 5. Chemotherapy and Femara on hold. 6. Anemia. Check Iron, B12 are normal. MMA and Epo are pending. Appears to be from chronic disease (CRI and DM). Bone marrow may be worthwhile before chemotherapy. 7. No discharge today.
[2018-09-13] MEDS: Aspirin EC TAB* 81 MG TAB.EC PO SCH (09:40)
[2018-09-13] MEDS: Insulin LISPRO* 1 UNITS UNIT SUBCUT SCH ×4 (09:40→22:34)
[2018-09-13] MEDS: Atorvastatin* 40 MG TAB PO SCH (09:40)
[2018-09-13] MEDS: amLODIPine TAB* 5 MG PO SCH (09:40)
[2018-09-13] MEDS: Carvedilol TAB* 6.25 MG PO SCH ×2 (09:41→22:33)
[2018-09-13] MEDS: Cholecalciferol TAB* 1000 UNITS PO SCH (09:41)
[2018-09-13] MEDS: LETROZOLE 2.5 MG PO SCH (09:48)
[2018-09-13] MEDS ORDERED: Polyethylene Glycol 3350* 17 GM PACKET PO PRN (17:56)
[2018-09-14] MEDS: Insulin GLARGINE(*) 1 UNITS UNIT SUBCUT SCH ×2 (04:50→17:04)
[2018-09-14] MEDS: Heparin VIAL(*) 5000 UNITS/ML VIAL (FIVE THOUSAND) SUBCUT SCH ×3 (04:51→21:18)
--- NOTE | 2018-09-14 08:13 | PN ---
Progress Note - Progress Note Date of Service: 09/14/18 SOAP: Subjective: []Much better. Antivert helped. Ate good dinner yesterday. Drinking well. Alprazolam (Xanax Tab*) 0.25 mg PO DAILY PRN PRN Reason: ANXIETY Amlodipine Besylate (Norvasc Tab*) 5 mg PO QAM [facility] Last Admin: 09/13/18 09:40 Dose: 5 mg Aspirin (Aspirin Ec Tab*) 81 mg PO QAM [facility] Last Admin: 09/13/18 09:40 Dose: 81 mg Atorvastatin Calcium (Lipitor*) 40 mg PO QAM [facility] Last Admin: 09/13/18 09:40 Dose: 40 mg Carvedilol (Coreg Tab*) 12.5 mg PO BID [facility] Last Admin: 09/13/18 22:33 Dose: 12.5 mg Cholecalciferol (Vitamin D Tab*) 5,000 units PO DAILY [facility] Last Admin: 09/13/18 09:41 Dose: 5,000 units Dextrose (D50w Syringe 50 Ml*) 12.5 gm IV PUSH .FOR FS < 60 - SS PRN PRN Reason: FS < 60 Heparin Sodium (Porcine) (Heparin Flush Port (Ivad)) 5 ml FLUSH DAILY [facility]; Protocol Last Admin: 09/13/18 18:09 Dose: 5 ml Heparin Sodium (Porcine) (Heparin Vial(*)) 5,000 units SUBCUT Q8HR [facility] Last Admin: 09/14/18 04:51 Dose: 5,000 units Insulin Glargine (Lantus(*)) 28 units SUBCUT Q12H [facility] Last Admin: 09/14/18 04:50 Dose: 28 unit Insulin Human Lispro (Humalog*) 0 units SUBCUT ACHS [facility]; Protocol Last Admin: 09/13/18 22:34 Dose: 2 unit Letrozole (Femara (Nf)) 2.5 mg PO QAM [facility]; Protocol Last Admin: 09/13/18 09:48 Dose: Not Given Meclizine HCl (Antivert Tab*) 25 mg PO Q8HR PRN PRN Reason: VERTIGO Metoclopramide HCl (Reglan Tab*) 10 mg PO Q6H PRN PRN Reason: NAUSEA Last Admin: 09/13/18 12:20 Dose: 10 mg Ondansetron HCl (Zofran Odt Tab*) 4 mg SL Q6H PRN PRN Reason: NAUSEA/VOMITING Last Admin: 09/13/18 07:55 Dose: 4 mg Polyethylene Glycol/Electrolytes (Miralax*) 17 gm PO BID PRN PRN Reason: CONSTIPATION Last Admin: 09/13/18 18:09 Dose: 17 gm Tramadol HCl (Ultram*) 50 mg PO DAILY PRN PRN Reason: PAIN Last Admin: 09/12/18 20:41 Dose: 50 mg Objective: [] Vital Signs Temp Pulse Resp BP Pulse Ox 98.6 F 78 16 161/64 97 09/14/18 02:31 09/14/18 02:31 09/14/18 02:31 09/14/18 02:31 09/14/18 02:31 HEENT - Conj pale, no oral lesions CTA RRR S1S2 Chest with both wounds packed, no overt infections +BS obese no FRIEDA MRI brain w/o CVA or mass effect Assessment: []58 yo s/p BL mastectomy for local breast cancer c/b bilateral wound infections. Presents with 4 days nausea on oral antibiotics, labs with acute on chronic renal failure. Renal function better and today nausea is better on Antivert, appears to be BPV. Plan: []1. ARF. check RF today, expect improvement 2. Nausea. - Antivert 25 mg q 6 prn - If good breakfast, can go home today. Will contineu Antivert on discharge. 3. Hold additional antibiotics. 4. Continue Lantus, glucose up but on ISS 5. Chemotherapy and Femara on hold. 6. Anemia. Appears to be from chronic disease (CRI and DM). Bone marrow may be worthwhile before chemotherapy.
[2018-09-14] MEDS: Insulin LISPRO* 1 UNITS UNIT SUBCUT SCH ×4 (08:48→21:18)
[2018-09-14] MEDS: Atorvastatin* 40 MG TAB PO SCH (09:06)
[2018-09-14] MEDS: Aspirin EC TAB* 81 MG TAB.EC PO SCH (09:06)
[2018-09-14] MEDS: Cholecalciferol TAB* 1000 UNITS PO SCH (09:07)
[2018-09-14] MEDS: amLODIPine TAB* 5 MG PO SCH (09:07)
[2018-09-14] MEDS: Carvedilol TAB* 6.25 MG PO SCH ×2 (09:11→21:18)
[2018-09-14] MEDS: LETROZOLE 2.5 MG PO SCH (09:14)
[2018-09-14 09:44] LABS: EGFR Non-African American 28.2 (>60)
[2018-09-14] MEDS: traMADol TAB* 50 MG PO PRN (19:09)
[2018-09-15] MEDS: Insulin GLARGINE(*) 1 UNITS UNIT SUBCUT SCH (04:37)
[2018-09-15] MEDS: Heparin VIAL(*) 5000 UNITS/ML VIAL (FIVE THOUSAND) SUBCUT SCH (04:37)
[2018-09-15 09:44] VITALS: BP 154/70
[2018-09-15] MEDS: Cholecalciferol TAB* 1000 UNITS PO SCH (09:50)
[2018-09-15] MEDS: LETROZOLE 2.5 MG PO SCH (09:51)
[2018-09-15] MEDS: Aspirin EC TAB* 81 MG TAB.EC PO SCH (09:51)
[2018-09-15] MEDS: amLODIPine TAB* 5 MG PO SCH (09:51)
[2018-09-15] MEDS: Atorvastatin* 40 MG TAB PO SCH (09:51)
[2018-09-15] MEDS: Carvedilol TAB* 6.25 MG PO SCH (09:51)
[2018-09-15] MEDS ORDERED: Bisacodyl EC TAB* 5 MG PO ONE (10:13)
--- NOTE | 2018-09-15 11:36 | DS ---
- Discharge Summary Admission Date: 09/11/18 Discharge Date: 09/15/18 Discharge Diagnosis: 1. STEFAN: 2/2 abx. and nausea, resolved 2. Nausea: 2/2 abx. and gastritis 3. Wound: wound vac in place, management as per wound clinic and Dr. La 4. Breast Cancer: on hormonal therapy while wound heals, goal of tx. 10/01 with AC x4 (no taxane d/t diabetic neuropathy) 5. Anemia: felt secondary to chronic disease, however may want to consider bone marrow biopsy prior to starting therapy, will also check a MMA level 6. DM: on insulin, no change with admission 7. HTN: resume home meds Discharge Medications: Medication Instructions Recorded Confirmed Type Aspirin EC TAB* [Ecotrin EC Low 81 mg PO QAM 06/16/18 09/11/18 History Dose 81 MG*] Atorvastatin* [Lipitor 40 MG*] 40 mg PO QAM 06/16/18 09/11/18 History Carvedilol TAB* [Coreg TAB*] 12.5 mg PO BID 06/16/18 09/11/18 History Letrozole (NF) [Femara (NF)] 2.5 mg PO QAM 06/16/18 09/11/18 History Losartan TAB* [Cozaar TAB*] 100 mg PO QAM 06/16/18 09/11/18 History amLODIPine TAB* [Norvasc 5 mg TAB*] 5 mg PO QAM 06/16/18 09/11/18 History traMADol TAB* [Ultram*] 50 mg PO DAILY PRN 06/16/18 09/11/18 History ALPRAZolam TAB* [Xanax TAB*] 0.25 mg PO DAILY PRN #0 06/17/18 09/11/18 Rx Insulin Detemir [Levemir Flextouch] 28 unit SC BID #1 inj 06/17/18 09/11/18 Rx Insulin Lispro [Humalog Kwikpen 6 unit SC AC 07/28/18 09/11/18 History U-100] Torsemide 40 mg PO BID 07/28/18 09/11/18 History Metoclopramide TAB* [Reglan TAB*] 10 mg PO Q6H PRN #10 tab 08/03/18 09/11/18 Rx Cholecalciferol (Vitamin D3) 5,000 unit PO DAILY 09/11/18 09/11/18 History [Vitamin D3] Bisacodyl EC TAB* [Dulcolax EC 10 mg PO DAILY PRN #30 tab.ec 09/15/18 Rx TAB*] Meclizine TAB* [Antivert 12.5 TAB*] 25 mg PO Q8HR PRN #120 tab 09/15/18 Rx Hospital Course: Please see admission note for full H&P, however briefly, Ms. Blevins is well know to our service due to her unfortunate diagnosis of locally advanced breast cancer. Her therapy has been complicated by ACS delaying surgery and now post mastectomy wound healing difficulty with subsequent infection. She has been on neoadjuvant hormone therapy since prior to her surgery. She was seen in the office on 08/11 for wound f/u with c/o nausea and dizziness and was found to have an acute elevation in her creatinine; this was felt secondary to recent Bactrim and therefore she was brought into the hospital for observation and hydration. Ultimately this took several days to resolve with hydration and improved nausea management. Antivert was added to her regimen and appears to be helping both her dizziness and nausea felt r/t BPV. At this time her creatinine is at her baseline and she feels strong enough to go home. She already has f/u with the wound clinic. We will check her labs in 1 week and she will be seen in 2 weeks to determine readiness for further chemotherapy. >40 min spent with >50% face to face counseling
== END 2018-09-15 12:20 | disposition home or self-care (01) | DRG 460 ==
LOC: MED 16:16
PROVIDERS: ADMIT Internal Medicine Hematology & Oncology; ATTEND Internal Medicine Hematology & Oncology
DX: N17.9 Acute kidney failure, unspecified (principal); C50.919 Malignant neoplasm of unspecified site of unspecified female breast; N18.9 Chronic kidney disease, unspecified; D63.1 Anemia in chronic kidney disease; K29.70 Gastritis, unspecified, without bleeding; E11.22 Type 2 diabetes mellitus with diabetic chronic kidney disease; E11.40 Type 2 diabetes mellitus with diabetic neuropathy, unspecified; I12.9 Hypertensive chronic kidney disease with stage 1 through stage 4 chronic kidney disease, or unspecified chronic kidney disease; H81.10 Benign paroxysmal vertigo, unspecified ear; T37.0X5A Adverse effect of sulfonamides, initial encounter; E86.0 Dehydration; Z90.13 Acquired absence of bilateral breasts and nipples; Y92.9 Unspecified place or not applicable; Z79.4 Long term (current) use of insulin
CPT/HCPCS: 36415; 70551; 80048; 80053; 82607; 82668; 82728; 83540; 83550; 83921; 85025; 99232; 99239; A9270-GY; J1642; J1644

== ENCOUNTER 2018-12-19 10:44 | Emergency (ER) | payer OTHER ==
--- OUTSIDE RECORDS SUMMARY | 2018-12-19 11:09 | XMS REPORT | Continuity of Care Document ---
:1960 External Reference #:[id number] Author Name Tanesha Muñoz Care Team Providers Name Role Phone Chanel Frost M.D. Primary Care Physician Unavailable Payers Date Identification Numbers Payment Provider Subscriber Effective: 2018 Policy Number: [id number] [place] Group Number: [id number] [address] PayID: [id number] [place] [address] Expires: 2018 Policy Number: [id number] Medicaid Ruth Ann Blevins Group Name: 1 1 [address] PayID: [id number] [place] [address] Effective: 2017 Group Number: 80% [facility] Ruth Ann Blevins Expires: 2018 PayID: [id number] [address] Advance Directives Description No Information Available Problems Date Description Provider Status Onset: 06/26/2018 Chronic kidney disease stage 4 Moe Marrufo MD Active Onset: 06/26/2018 Malignant neoplasm of upper-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 Active Onset: 09/23/2018 Urinary tract infectious disease Benjamin Fontana M.D. Active Onset: 09/23/2018 Essential hypertension Benjamin Fontana M.D. 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 ETOH Use Negative For Denies alcohol use Tobacco Use Start: Unknown Patient has never smoked Recreational Drug Use Negative For Denies Drug Use Smoking Status Reviewed: 12/02/18 Patient has never smoked Exercise Type/Frequency Negative For Exercises rarely Exercise Type/Frequency Negative For Does not exercise Allergies, Adverse Reactions, Alerts Date Description Reaction Status Severity Comments 06/12/2018 Iodine Active rash, burning sensation 06/12/2018 Morphine Sulfate Active anxiety, hallucinations 06/12/2018 Penicillin V Potassium Active 07/10/2018 Penicillin Active skin rash Medications Medication Date Status Form Strength Qnty SIG Indications Ordering Provider Ranitidine HCL 12/02/19 Active Tablets 150mg 60tab 1 by R12 Chanel 19 s mouth Frost, twice a MD day as needed for heartburn Depend 11/12/19 Active Misc 100un for use Chanel [facility] 19 its five Frost, times a MD day Proair HFA 11/05/19 Active Aerosol 108(90Bas 1unit 2 every 4 J45.20 Chanel 19 e) s hours as Frost, mcg/Act needed Aerpina BETANCUR 11/05/19 Active Misc 1unit use as J45.20 Chanel 19 s directed Frost, with albuterol inhaler Freestyle Lite 09/29/20 Active Device 1unit test Martell Blood Glucose 18 s blood LISANDRO Gutiérrez Monitoring System sugar 3 times daily and as needed Admelog Solostar 09/22/20 Active Solution 100Unit/M 3ml 6 units Martell 18 Pen-Injec L sc prior LISANDRO Gutiérrez t to each meal Basaglar Kwikpen 09/17/20 Active Solution 100Unit/M 15ml 20 units Chanel 18 Pen-Injec L in in the Frost, t morning and 15 units in at night Losartan 08/20/20 Active Tablets 100mg 90tab 1 by Reginaldo Easley Potassium 18 s mouth Umaña, every day DO [facility] Blood Glucose 07/23/20 Active Kit W/Device 1unit check E11.22 Nuris Monitoring System 18 s blood Varn, sugar3-4 N.P. times daily Lancets 07/23/20 Active Misc 270un use E11.22 Martell 18 its three-fou LISANDRO Gutiérrez r times daily and as needed E 11.22 - last seen on 07/10/18 Pen Shelbiana 3/16" 07/10/20 Active Misc 31G X 5 100un use with E11.9 Chanel 18 mm its basaglar Frost, and MD patricia kitchenq everyday Glucose Meter 07/10/20 Active Strips 100un for use E11.9 Nuris Test Strips 18 its 3-4 times Varn, Advanced daily N.P. Methocarbamol 07/10/20 Active Tablets 750mg 60tab take 1 M54.2 Martell 18 s tablet LISANDRO Gutiérrez every six hours as needed for pain. Torsemide 06/26/20 Active Tablets 20mg 90tab take 1 I50.9 Benjamin 18 s tablet Pachikara daily. , Markel. taken an extra tablet for worsening edema. Nitroglycerin 06/26/20 Active Tablets 0.4mg 14tab Take 1 I25.119 Moe 18 Sub s tab MD naun Marrufo as needed for chest pain. Can repeat every 5 minutes (for two more times) Ferrous Gluconate 06/26/20 Active Tablets 324(37.5F 30tab take 1 D50.9 Benjamin 18 e) mg s tab Pachikara daily. , MRamosD. Alprazolam Active as needed Unknown 00 Amlodipine Active Tablets 5mg 90tab 1 by Reginaldo Easley Besylate 00 s mouth Umaña, every day DO [facility] Aspir-Low Active Tablets 81mg 30tab [address] s mouth Brcok VESSEL SCRAPPER every day Atorvastatin Active Tablets 40mg 30tab 1 by Laura Calcium 00 s mouth Senner, every day DO Carvedilol Active Tablets 12.5mg 180ta 1 by Reginaldo Easley 00 bs mouth Umaña, twice a DO day Vitamin D Active Tablets 91125 1 twice a Unknown (Cholecalciferol) 00 week Letrozoleletrozol Active Tablets 2.5mg 14tab take 1 Martell e 00 s tab by LISANDRO Gutiérrez mouth daily cycle days 3-7. Tramadol HCL Active Tablets 50mg 1 daily Unknown 00 as needed Tylenol Extra Active Tablets 500mg 2 by Unknown Strength 00 mouth 3 times daily as needed Humalog Kwikpen 09/17/20 Hx Solution 100Unit/M 15ml 6 units Martell 18 - Pen-Injec L with each LISANDRO Gutiérrez 09/22/20 t meal 18 Levemir Flextouch 09/10/20 Hx Solution 100Unit/M 30ml inject 28 Martell 18 - Pen-Injec L units bid LISANDRO Gutiérrez 09/17/20 t 18 Novolog Flexpen 09/10/20 Hx Solution 100Unit/M 30uni 6 units Martell 18 - Pen-Injec L ts prior to LISANDRO Gutiérrez 09/17/20 t each meal 18 (as long as blood glucose is >120) Oxycodone-Acetami 07/28/20 Hx Tablets 5-325mg 20tab 1--2 tab Amber Pavel nophen 18 - s by mouth Laina La every 4- MD 6 hours as needed for pain Basaglar Kwikpen 07/10/20 Hx Solution 100Unit/M 15ml 28 units Martell 18 - Pen-Injec L in Am and LISANDRO Gutiérrez 09/10/20 t 25 units 18 in PM(see 07/30/18 triage) Cyclobenzaprine 07/10/20 Hx Tablets 10mg 60tab one by M54.2 Martell HCL 18 - s mouth LISANDRO Gutiérrez 07/10/20 three 18 times a day as needed spasm Furosemide Hx Tablets 40mg 1 by Unknown 00 - mouth 06/30/20 twice 18 daily. will start today Losartan Hx Tablets 100mg 1 by Unknown Potassium 00 - mouth 06/18/20 every day 18 Oxycodone-Acetami Hx Tablets 1 tablet Unknown nophen 00 - q6 hours 09/23/20 as needed 18 for pain Losartan Hx Tablets 25mg 90tab 1 by Reginaldo Easley Potassium - s mouth Leeroy, 08/20/20 every day DO [facility] 18 Humalog Kwikpen Hx Solution 100Unit/M 6 units Unknown 00 - Pen-Injec L with each 09/10/20 t meal 18 Ventolin HFA Hx Aerosol 108(90Bas 2 puffs Unknown - e) by mouth 09/23/20 mcg/Act four 18 times a day as needed Metoclopramide Hx Tablets 10mg Take 1 Unknown HCL 00 - Tablet By 09/23/20 Mouth 18 Every 6 Hours as Needed For Nausea Medications Administered in Office Medication Date Status Form Strength Qnty SIG Indications Ordering Provider Inj, 07/16/ Administered Injection Reginaldo Easley Regadenoson, 0.1 2017 DO Leeroy MG FACC Aminophylline 07/16/ Administered Injection Reginaldo Easley 2017 DO Leeroy FACC Technetium TC 07/16/ Administered Injection Reginaldo Easley 99M Tetrofosmin, 2017 DO Leeroy Per Unit Dose Up FACC To 40 Millicuries Immunizations Description No Information Available Vital Signs Date Vital Result Comment 12/02/2018 4:06pm Height 60 inches 5'0" Weight 187.00 lb Heart Rate 78 /min BP Systolic 139 mmHg BP Diastolic 67 mmHg Body Temperature 97.5 F O2 % BldC Oximetry 97 % BMI (Body Mass Index) 36.5 kg/m2 11/05/2018 2:36pm Height 60 inches 5'0" Weight 191.50 lb Heart Rate 64 /min BP Systolic 136 mmHg BP Diastolic 82 mmHg Body Temperature 97.7 F O2 % BldC Oximetry 93 % BMI (Body Mass Index) 37.4 kg/m2 09/23/2018 4:08pm Height 60 inches 5'0" Weight 179.00 lb Heart Rate 69 /min BP Systolic Sitting 150 mmHg BP Diastolic Sitting 80 mmHg Body Temperature 98.3 F O2 % BldC Oximetry 97 % BMI (Body Mass Index) 35.0 kg/m2 08/25/2018 2:25pm Heart Rate 72 /min Respiratory Rate 16 /min Body Temperature 98.1 F 08/18/2018 11:46am Heart Rate 74 /min Respiratory Rate 16 /min Body Temperature 98.1 F 08/14/2018 1:21pm Heart Rate 84 /min Respiratory Rate 18 /min Body Temperature 97.4 F 08/07/2018 11:32am Heart Rate 84 /min Respiratory Rate 16 /min Body Temperature 97.5 F 07/28/2018 12:59pm Height 60.25 inches 5'0.25" Weight 169.00 lb Heart Rate 72 /min BP Systolic Sitting 132 mmHg BP Diastolic Sitting 64 mmHg Respiratory Rate 18 /min Body Temperature 97.8 F BMI (Body Mass Index) 32.7 kg/m2 07/10/2018 12:59pm Height 60.25 inches 5'0.25" Weight 172.00 lb Heart Rate 74 /min BP Systolic 120 mmHg BP Diastolic 66 mmHg Body Temperature 97.2 F O2 % BldC Oximetry 97 % BMI (Body Mass Index) 33.3 kg/m2 07/02/2018 10:00am Height 60 inches 5'0" Weight 177.00 lb Heart Rate 74 /min BP Systolic 140 mmHg BP Diastolic 88 mmHg Respiratory Rate 18 /min Body Temperature 97.3 F BMI (Body Mass Index) 34.6 kg/m2 07/01/2018 10:45am Height 60 inches 5'0" Weight 177.38 lb Heart Rate 76 /min BP Systolic 130 mmHg right arm reg cuff BP Diastolic 70 mmHg right arm reg cuff BMI (Body Mass Index) 34.6 kg/m2 06/26/2018 10:55am Weight 182.00 lb Heart Rate 62 /min BP Systolic 133 mmHg BP Diastolic 58 mmHg Respiratory Rate 16 /min Body Temperature 98.5 F Pain Level 8 back/nack/breast O2 % BldC Oximetry 98 % Results Test Date Facility Test Result H/L Range Note Laboratory test 12/09/2018 [facility] Point of Care 337 mg/dL High 70-100 [address] [place] [address] [phone] Laboratory test 12/09/2018 [facility] Point of Care 371 mg/dL High 70-100 [address] [place] [address] [phone] Comp Metabolic 12/08/2018 [facility] Sodium 136 mmol/L N 135- [address] [place] [address] [phone] Potassium 4.1 mmol/L N 3.5-5.0 Chloride 104 mmol/L N 101-111 Co2 Carbon Dioxide 26 mmol/L N 22-32 Anion Gap 6 mmol/L N 2-11 Glucose 131 mg/dL High 70-100 Blood Urea Nitrogen 34 mg/dL High 6-24 Creatinine 2.35 mg/dL High 0.51-0.95 BUN/Creatinine Ratio 14.5 N 8-20 Calcium 8.8 mg/dL N 8.6-10.3 Total Protein 6.1 g/dL Low 6.4-8.9 Albumin 3.1 g/dL Low 3.2-5.2 Globulin 3.0 g/dL N 2-4 Albumin/Globulin Ratio 1.0 N 1-3 Total Bilirubin 0.30 mg/dL N 0.2-1.0 Alkaline Phosphatase 104 U/L N 34-104 Alt 13 U/L N 7-52 Ast 13 U/L N 13-39 Egfr Non- 21.1 >60 Egfr 25.5 >60 3 CBC Auto 12/08/2018 [facility] White Blood 20.1 10^3/uL High 3.5-10.[address] [place] [address] [phone] Red Blood Count 2.35 10^6/uL Low 4.00-5.40 Hemoglobin 6.9 g/dL Low 12.0-16.0 Hematocrit 21 % Low 35-47 Mean Corpuscular Volume 89 fL N 80-97 Mean Corpuscular Hemoglobin 29 pg N 27-31 Mean Corpuscular HGB Conc 33 g/dL N 31-36 Red Cell Distribution Width 15 % N 10.5-15 Platelet Count 207 10^3/uL N 150-450 Mean Platelet Volume 7.6 fL N 7.4-10.4 Abs Neutrophils 16.4 10^3/uL High 1.5-7.7 Abs Lymphocytes 0.9 10^3/uL Low 1.0-4.8 Abs Monocytes 2.4 10^3/uL High 0-0.8 Abs Eosinophils 0.3 10^3/uL N 0-0.6 Abs Basophils 0.1 10^3/uL N 0-0.2 Abs Nucleated RBC 0 10^3/uL Granulocyte % 81.7 % Lymphocyte % 4.5 % Monocyte % 11.8 % Eosinophil % 1.4 % Basophil % 0.6 % Nucleated Red Blood Cells % 0 Transfusion 12/08/2018 [facility] Posttransfusion AP A Positive Reaction Profile [address] [place] [address] [phone] Post Transfusion Rxn Rj NEGATIVE TXRX Unit Number [id number] TXRX Prelim Report (SEE NOTE) 4 Transfusion RXN Interpretation (SEE NOTE) 5 Comp Metabolic Panel 11/24/2018 [facility] Sodium 137 mmol/L N 135-[address] [place] [address] [phone] Potassium 4.0 mmol/L N 3.5-5.0 Chloride 103 mmol/L N 101-111 Co2 Carbon Dioxide 26 mmol/L N 22-32 Anion Gap 8 mmol/L N 2-11 Glucose 154 mg/dL High 70-100 Blood Urea Nitrogen 49 mg/dL High 6-24 Creatinine 2.35 mg/dL High 0.51-0.95 BUN/Creatinine Ratio 20.9 High 8-20 Calcium 8.7 mg/dL N 8.6-10.3 Total Protein 6.5 g/dL N 6.4-8.9 Albumin 3.2 g/dL N 3.2-5.2 Globulin 3.3 g/dL N 2-4 Albumin/Globulin Ratio 1.0 N 1-3 Total Bilirubin 0.20 mg/dL N 0.2-1.0 Alkaline Phosphatase 70 U/L N 34-104 Alt 14 U/L N 7-52 Ast 16 U/L N 13-39 Egfr Non- 21.1 >60 Egfr 25.5 >60 6 CBC Auto 11/24/2018 [facility] White Blood 13.6 10^3/uL High 3.5-10.[address] [place] [address] [phone] Red Blood Count 2.52 10^6/uL Low 4.00-5.40 Hemoglobin 7.3 g/dL Low 12.0-16.0 Hematocrit 22 % Low 35-47 Mean Corpuscular Volume 87 fL N 80-97 Mean Corpuscular Hemoglobin 29 pg N 27-31 Mean Corpuscular HGB Conc 33 g/dL N 31-36 Red Cell Distribution Width 14 % N 10.5-15 Platelet Count 524 10^3/uL High 150-450 Mean Platelet Volume 7.0 fL Low 7.4-10.4 Abs Neutrophils 9.7 10^3/uL High 1.5-7.7 Abs Lymphocytes 1.5 10^3/uL N 1.0-4.8 Abs Monocytes 2.1 10^3/uL High 0-0.8 7 Abs Eosinophils 0.2 10^3/uL N 0-0.6 Abs Basophils 0.1 10^3/uL N 0-0.2 Abs Nucleated RBC 0 10^3/uL Granulocyte % 71.3 % Lymphocyte % 10.9 % Monocyte % 15.7 % Eosinophil % 1.3 % Basophil % 0.8 % Nucleated Red Blood Cells % 0 Type & Screen 11/24/2018 [facility] Patient Blood Type A Positive [address] [place] [address] [phone] Antibody Screen NEGATIVE Laboratory test 11/24/2018 [facility] Packed Cells SEE RESULTS [address] BELO <[place] [address] NOTE> [phone] Comp Metabolic 11/17/2018 [facility] Sodium 137 mmol/L N 135- [address] [place] [address] [phone] Potassium 3.9 mmol/L N 3.5-5.0 Chloride 104 mmol/L N 101-111 Co2 Carbon Dioxide 27 mmol/L N 22-32 Anion Gap 6 mmol/L N 2-11 Glucose 152 mg/dL High 70-100 Blood Urea Nitrogen 41 mg/dL High 6-24 Creatinine 1.95 mg/dL High 0.51-0.95 BUN/Creatinine Ratio 21.0 High 8-20 Calcium 9.3 mg/dL N 8.6-10.3 Total Protein 6.6 g/dL N 6.4-8.9 Albumin 3.1 g/dL Low 3.2-5.2 Globulin 3.5 g/dL N 2-4 Albumin/Globulin Ratio 0.9 Low 1-3 Total Bilirubin 0.30 mg/dL N 0.2-1.0 Alkaline Phosphatase 74 U/L N 34-104 Alt 14 U/L N 7-52 Ast 12 U/L Low 13-39 Egfr Non- 26.2 >60 Egfr 31.7 >60 9 CBC Auto 11/17/2018 [facility] White Blood 2.4 10^3/uL Low 3.5 -10.[address] [place] [address] [phone] Red Blood Count 2.70 10^6/uL Low 4.00-5.40 Hemoglobin 8.0 g/dL Low 12.0-16.0 Hematocrit 24 % Low 35-47 Mean Corpuscular Volume 87 fL N 80-97 Mean Corpuscular Hemoglobin 30 pg N 27-31 Mean Corpuscular HGB Conc 34 g/dL N 31-36 Red Cell Distribution Width 14 % N 10.5-15 Platelet Count 233 10^3/uL N 150-450 Mean Platelet Volume 7.1 fL Low 7.4-10.4 Abs Neutrophils 0.5 10^3/uL Low 1.5-7.7 Abs Lymphocytes 0.9 10^3/uL Low 1.0-4.8 Abs Monocytes 0.7 10^3/uL N 0-0.8 Abs Eosinophils 0.3 10^3/uL N 0-0.6 Abs Basophils 0.1 10^3/uL N 0-0.2 Abs Nucleated RBC 0 10^3/uL Granulocyte % 19.6 % Lymphocyte % 38.0 % Monocyte % 28.1 % Eosinophil % 11.1 % Basophil % 3.2 % Nucleated Red Blood Cells % 0.2 Laboratory test 11/17/2018 [facility] Pathologist (SEE NOTE) [address] [place] [address] [phone] Laboratory test 11/05/2018 [facility] Hemoglobin A1c 8.1 High 5-7 finding Laboratory test 11/03/2018 [facility] Packed Cells SEE RESULTS [address] BELO <[place] [address] NOTE> [phone] Type & Screen 11/03/2018 [facility] Patient Blood A Positive [address] [place] [address] [phone] Antibody Screen NEGATIVE Comp Metabolic Panel 11/03/2018 [facility] Sodium 139 mmol/L N 135-[address] [place] [address] [phone] Potassium 4.1 mmol/L N 3.5-5.0 Chloride 103 mmol/L N 101-111 Co2 Carbon Dioxide 28 mmol/L N 22-32 Anion Gap 8 mmol/L N 2-11 Calcium 8.4 mg/dL Low 8.6-10.3 Albumin 2.9 g/dL Low 3.2-5.2 Total Bilirubin 0.20 mg/dL N 0.2-1.0 Glucose 137 mg/dL High 70-100 Blood Urea Nitrogen 43 mg/dL High 6-24 Creatinine 2.16 mg/dL High 0.51-0.95 BUN/Creatinine Ratio 19.9 N 8-20 Total Protein 5.8 g/dL Low 6.4-8.9 Globulin 2.9 g/dL N 2-4 Albumin/Globulin Ratio 1.0 N 1-3 Alkaline Phosphatase 83 U/L N 34-104 Alt 14 U/L N 7-52 Ast 16 U/L N 13-39 Egfr Non- 23.3 >60 Egfr 28.1 >60 12 CBC Auto 11/03/2018 [facility] White Blood 13.1 10^3/uL High 3.5-10.[address] [place] [address] [phone] Red Blood Count 2.50 10^6/uL Low 4.00-5.40 Hemoglobin 7.2 g/dL Low 12.0-16.0 Hematocrit 22 % Low 35-47 Mean Corpuscular Volume 88 fL N 80-97 Mean Corpuscular Hemoglobin 29 pg N 27-31 Mean Corpuscular HGB Conc 33 g/dL N 31-36 Red Cell Distribution Width 15 % N 10.5-15 Platelet Count 469 10^3/uL High 150-450 Mean Platelet Volume 6.5 fL Low 7.4-10.4 Abs Neutrophils 9.3 10^3/uL High 1.5-7.7 Abs Lymphocytes 1.9 10^3/uL N 1.0-4.8 Abs Monocytes 1.6 10^3/uL High 0-0.8 Abs Eosinophils 0.2 10^3/uL N 0-0.6 Abs Basophils 0.1 10^3/uL N 0-0.2 Abs Nucleated RBC 0 10^3/uL Granulocyte % 71.0 % Lymphocyte % 14.6 % Monocyte % 12.3 % Eosinophil % 1.4 % Basophil % 0.7 % Nucleated Red Blood Cells % 0 CBC Auto Diff 10/15/2018 [facility] White Blood 8.5 10^3/uL N 3.5-10.[address] [place] [address] [phone] Red Blood Count 3.14 10^6/uL Low 4.00-5.40 Hemoglobin 9.3 g/dL Low 12.0-16.0 Hematocrit 28 % Low 35-47 Mean Corpuscular Volume 88 fL N 80-97 Mean Corpuscular Hemoglobin 30 pg N 27-31 Mean Corpuscular HGB Conc 34 g/dL N 31-36 Red Cell Distribution Width 15 % N 10.5-15 Platelet Count 272 10^3/uL N 150-450 Mean Platelet Volume 8.0 fL N 7.4-10.4 Abs Neutrophils 5.3 10^3/uL N 1.5-7.7 Abs Lymphocytes 2.2 10^3/uL N 1.0-4.8 Abs Monocytes 0.7 10^3/uL N 0-0.8 Abs Eosinophils 0.4 10^3/uL N 0-0.6 Abs Basophils 0.1 10^3/uL N 0-0.2 Abs Nucleated RBC 0 10^3/uL Granulocyte % 61.6 % Lymphocyte % 25.3 % Monocyte % 7.6 % Eosinophil % 4.3 % Basophil % 1.2 % Nucleated Red Blood Cells % 0 Comp Metabolic Panel 10/15/2018 [facility] Sodium 135 mmol/L N 135-[address] [place] [address] [phone] Potassium 4.0 mmol/L N 3.5-5.0 Chloride 99 mmol/L Low 101-111 Co2 Carbon Dioxide 27 mmol/L N 22-32 Anion Gap 9 mmol/L N 2-11 Glucose 360 mg/dL High 70-100 Blood Urea Nitrogen 66 mg/dL High 6-24 Creatinine 2.49 mg/dL High 0.51-0.95 BUN/Creatinine Ratio 26.5 High 8-20 Calcium 9.1 mg/dL N 8.6-10.3 Total Protein 6.6 g/dL N 6.4-8.9 Albumin 3.4 g/dL N 3.2-5.2 Globulin 3.2 g/dL N 2-4 Albumin/Globulin Ratio 1.1 N 1-3 Total Bilirubin 0.30 mg/dL N 0.2-1.0 Alkaline Phosphatase 73 U/L N 34-104 Alt 12 U/L N 7-52 Ast 13 U/L N 13-39 Egfr Non- 19.7 >60 Egfr 23.9 >60 13 Laboratory test 09/29/2018 [facility] LDH 183 U/L N 140-271 finding [address] [place], [place] [id number] [phone] Protein 09/29/2018 [facility] Total 6.4 g/dL 6.3 - 7.[address] Protein([place] [address] ) [phone] Albumin 2.7 g/dL Abnormal 3.4-4.7 Alpha-1 Globulin 0.3 g/dL 0.1-0.3 Alpha-2 Globulin 1.1 g/dL Abnormal 0.6-1.0 Beta Globulin 1.1 g/dL 0.7-1.2 Gamma Globulin 1.2 g/dL 0.6-1.6 Albumin/Globulin Ratio 0.74 Impression See Comment 14 Lipid Profile 09/24/2018 [facility] Triglycerides 196 mg/dL 15 (Trig/Chol/HDL) [address] [place] [address] [phone] Cholesterol 151 mg/dL 16 HDL Cholesterol 38.5 mg/dL 17 LDL Cholesterol 73 mg/dL 18 Comp Metabolic Panel 09/24/2018 [facility] Sodium 138 mmol/L N 135-145 [address] [place] [address] [phone] Potassium 4.4 mmol/L N 3.5-5.0 Chloride 104 mmol/L N 101-111 Co2 Carbon Dioxide 28 mmol/L N 22-32 Anion Gap 6 mmol/L N 2-11 Glucose 125 mg/dL High 70-100 Blood Urea Nitrogen 57 mg/dL High 6-24 Creatinine 2.03 mg/dL High 0.51-0.95 BUN/Creatinine Ratio 28.1 High 8-20 Calcium 9.3 mg/dL N 8.6-10.3 Total Protein 6.8 g/dL N 6.4-8.9 Albumin 3.5 g/dL N 3.2-5.2 Globulin 3.3 g/dL N 2-4 Albumin/Globulin Ratio 1.1 N 1-3 Total Bilirubin 0.30 mg/dL N 0.2-1.0 Alkaline Phosphatase 64 U/L N 34-104 Alt 16 U/L N 7-52 Ast 15 U/L N 13-39 Egfr Non- 25.0 >60 Egfr 30.2 >60 19 CBC Auto Diff 09/24/2018 [facility] White Blood 8.3 10^3/uL N 3.5-10.[address] [place] [address] [phone] Red Blood Count 2.92 10^6/uL Low 4.00-5.40 Hemoglobin 8.7 g/dL Low 12.0-16.0 Hematocrit 26 % Low 35-47 Mean Corpuscular Volume 88 fL N 80-97 Mean Corpuscular Hemoglobin 30 pg N 27-31 Mean Corpuscular HGB Conc 34 g/dL N 31-36 Red Cell Distribution Width 15 % N 10.5-15 Platelet Count 361 10^3/uL N 150-450 Mean Platelet Volume 7.0 fL Low 7.4-10.4 Abs Neutrophils 4.5 10^3/uL N 1.5-7.7 Abs Lymphocytes 2.5 10^3/uL N 1.0-4.8 Abs Monocytes 0.6 10^3/uL N 0-0.8 Abs Eosinophils 0.4 10^3/uL N 0-0.6 Abs Basophils 0.1 10^3/uL N 0-0.2 Abs Nucleated RBC 0 10^3/uL Granulocyte % 54.9 % Lymphocyte % 30.4 % Monocyte % 7.8 % Eosinophil % 5.1 % Basophil % 1.8 % Nucleated Red Blood Cells % 0 Laboratory test finding 09/23/2018 [facility] Hemoglobin A1c 7.4 High 5 -7 Ua Routine 09/23/2018 [facility] Ua Specific [place] 1.010 Ua PH 6 Ua Color yellow Ua Appera clear Ua WBC + Ua Protein 500 Ua Glucose normal Ua Ketones neg Ua Bilirubin neg Ua Urobilinogen normal Ua Nitrite neg Ua Occult Blood trace Urine Culture And 09/23/2018 [facility] Urine Culture SEE RESULT [address] [place], [place] [id number] [phone] Urine Microalbumin 09/23/2018 [facility] Urine Creatinine 72.95 mg/dL Random [address] [place] [address] [phone] Ur Microalbumin (mg/L) > 1500.0 Urine Microalbumin/Creatinine 2056.2 High <31 Laboratory test 09/11/2018 [facility] Lactic Acid 0.8 mmol/L N 0.5-2.[address] [place] [address] [phone] CBC Auto Diff 09/11/2018 [facility] White Blood 6.9 10^3/uL N 3.5-10.[address] [place] [address] [phone] Red Blood Count 2.98 10^6/uL Low 4.00-5.40 Hemoglobin 8.9 g/dL Low 12.0-16.0 Hematocrit 26 % Low 35-47 Mean Corpuscular Volume 88 fL N 80-97 Mean Corpuscular Hemoglobin 30 pg N 27-31 Mean Corpuscular HGB Conc 34 g/dL N 31-36 Red Cell Distribution Width 14 % N 10.5-15 Platelet Count 357 10^3/uL N 150-450 Mean Platelet Volume 6.8 fL Low 7.4-10.4 Abs Neutrophils 3.4 10^3/uL N 1.5-7.7 Abs Lymphocytes 2.5 10^3/uL N 1.0-4.8 Abs Monocytes 0.6 10^3/uL N 0-0.8 Abs Eosinophils 0.3 10^3/uL N 0-0.6 Abs Basophils 0.1 10^3/uL N 0-0.2 Abs Nucleated RBC 0 10^3/uL Granulocyte % 49.0 % N 38-83 Lymphocyte % 36.8 % N 25-47 Monocyte % 8.2 % High 0-7 Eosinophil % 4.9 % N 0-6 Basophil % 1.1 % N 0-2 Nucleated Red Blood Cells % 0 Comp Metabolic Panel 09/11/2018 [facility] Sodium 134 mmol/L Low 135-145 [address] [place] [address] [phone] Potassium 4.6 mmol/L N 3.5-5.0 Chloride 100 mmol/L Low 101-111 Co2 Carbon Dioxide 27 mmol/L N 22-32 Anion Gap 7 mmol/L N 2-11 Glucose 126 mg/dL High 70-100 Blood Urea Nitrogen 81 mg/dL High 6-24 Creatinine 4.24 mg/dL High 0.51-0.95 BUN/Creatinine Ratio 19.1 N 8-20 Calcium 9.4 mg/dL N 8.6-10.3 Total Protein 7.1 g/dL N 6.4-8.9 Albumin 3.4 g/dL N 3.2-5.2 Globulin 3.7 g/dL N 2-4 Albumin/Globulin Ratio 0.9 Low 1-3 Total Bilirubin 0.20 mg/dL N 0.2-1.0 Alkaline Phosphatase 67 U/L N 34-104 Alt 16 U/L N 7-52 Ast 18 U/L N 13-39 Egfr Non- 10.7 >60 Egfr 12.9 >60 22 Laboratory test 09/11/2018 [facility] Blood Culture SEE RESULT [address] [place] [address] [phone] Laboratory test 06/26/2018 [facility] Hemoglobin A1c 8.3 % High 4.0-[address] (Glyco HGB) .6 [place] [address] [phone] Laboratory test 06/26/2018 [facility] B-Type 214 pg/mL High [address] [place] [address] Peptide BNP [phone] Basic Metabolic 06/23/2018 [facility] Sodium 141 mmol/L N 135- [address] [place] [address] [phone] Potassium 4.7 mmol/L N 3.5-5.0 Chloride 110 mmol/L N 101-111 Co2 Carbon Dioxide 25 mmol/L N 22-32 Anion Gap 6 mmol/L N 2-11 Glucose 115 mg/dL High 70-100 Blood Urea Nitrogen 48 mg/dL High 6-24 Creatinine 1.71 mg/dL High 0.51-0.95 BUN/Creatinine Ratio 28.1 High 8-20 Calcium 9.0 mg/dL N 8.6-10.3 Egfr Non- 30.6 >60 Egfr 37.0 >60 26 Laboratory test 06/16/2018 [facility] Ferritin 200.7 ng/mL N 11-[address] [place] [address] [phone] Folic Acid (Folate) 14.74 ng/mL >3.99 Vitamin B12 559 pg/mL N 180-914 27 Methylmalonic Acid Mma 0.44 nmol/mL Abnormal <=0.40 28 Iron & Iron Binding 06/16/2018 [facility] Iron 35 g/dL Low 50-[address] [place], [place] [id number] [phone] Unsaturated Iron Binding 325 g/dL Total Iron Binding Capacity 360 g/dL N 250-450 Transferrin 257 mg/dL N 203-362 % Iron Saturation 10 % Low 15-55 Laboratory test 06/16/2018 [facility] Troponin-I (TnI) 0.01 ng/ mL <0.[address] [place] [address] [phone] B-Type Natriuretic Peptide BNP 361 pg/mL High 29 Comp Metabolic Panel 06/16/2018 [facility] Sodium 139 mmol/L N 135-[address] [place] [address] [phone] Potassium 5.0 mmol/L N 3.5-5.0 Chloride 105 mmol/L N 101-111 Co2 Carbon Dioxide 29 mmol/L N 22-32 Anion Gap 5 mmol/L N 2-11 Glucose 137 mg/dL High 70-100 Blood Urea Nitrogen 37 mg/dL High 6-24 Creatinine 1.88 mg/dL High 0.51-0.95 BUN/Creatinine Ratio 19.7 N 8-20 Calcium 9.3 mg/dL N 8.6-10.3 Total Protein 6.9 g/dL N 6.4-8.9 Albumin 3.3 g/dL N 3.2-5.2 Globulin 3.6 g/dL N 2-4 Albumin/Globulin Ratio 0.9 Low 1-3 Total Bilirubin 0.30 mg/dL N 0.2-1.0 Alkaline Phosphatase 131 U/L High 34-104 Alt 36 U/L N 7-52 Ast 26 U/L N 13-39 Egfr Non- 27.4 >60 Egfr 33.1 >60 30 Laboratory test 06/16/2018 [facility] Partial 32.0 seconds N 26.0-36.[address] [place] [address] PTT [phone] Lactic Acid 0.8 mmol/L N 0.5-2.0 31 Inr/Protime 06/16/2018 [facility] Inr 0.90 N 0.77-1.[address] [place] [address] [phone] CBC Auto Diff 06/16/2018 [facility] White Blood 9.6 10^3/uL N 3.5-10.[address] [place] [address] [phone] Red Blood Count 3.10 10^6/uL Low 4.00-5.40 Hemoglobin 9.4 g/dL Low 12.0-16.0 Hematocrit 27 % Low 35-47 Mean Corpuscular Volume 88 fL N 80-97 Mean Corpuscular Hemoglobin 30 pg N 27-31 Mean Corpuscular HGB Conc 34 g/dL N 31-36 Red Cell Distribution Width 13 % N 10.5-15 Platelet Count 299 10^3/uL N 150-450 Mean Platelet Volume 8.0 um3 N 7.4-10.4 Abs Neutrophils 6.6 10^3/uL N 1.5-7.7 Abs Lymphocytes 1.7 10^3/uL N 1.0-4.8 Abs Monocytes 0.7 10^3/uL N 0-0.8 Abs Eosinophils 0.4 10^3/uL N 0-0.6 Abs Basophils 0.1 10^3/uL N 0-0.2 Abs Nucleated RBC 0 10^3/uL Granulocyte % 69.2 % N 38-83 Lymphocyte % 18.3 % Low 25-47 Monocyte % 7.3 % High 0-7 Eosinophil % 4.2 % N 0-6 Basophil % 1.0 % N 0-2 Nucleated Red Blood Cells % 0 Urine Culture And 06/16/2018 [facility] Urine Culture SEE RESULT [address] [place] [address] [phone] Urinalysis Profile 06/16/2018 [facility] Urine Color Straw [address] [place] [address] [phone] Urine Appearance Clear Urine Specific [place] 1.006 Low 1.010-1.030 Urine pH 7.0 N 5-9 Urine Urobilinogen Negative Negative Urine Ketones Negative Negative Urine Protein 2+(100 mg/dL) Abnormal Negative Urine Leukocytes 1+ Abnormal Negative Urine Blood Negative Negative Urine Nitrite Negative Negative Urine Bilirubin Negative Negative Urine Glucose Negative Negative Urine White Blood Cell 2+(11-20/hpf) Abnormal Absent Urine Red Blood Cell Trace(0-2/hpf) Absent Urine Bacteria Absent Absent Urine Squamous Epithelial Cell Present Abnormal Absent Laboratory test 06/16/2018 [facility] Troponin-I 0.01 <0.[address] (TnI) ng/[place] [address] [phone] CBC Auto Diff 06/11/2018 [facility] White Blood 11.9 High 3.5- 10.[address] Count 10^3/[place] [address] [phone] Red Blood Count 3.03 10^6/uL Low 4.00-5.40 Hemoglobin 9.0 g/dL Low 12.0-16.0 Hematocrit 27 % Low 35-47 Mean Corpuscular Volume 89 fL N 80-97 Mean Corpuscular Hemoglobin 30 pg N 27-31 Mean Corpuscular HGB Conc 34 g/dL N 31-36 Red Cell Distribution Width 13 % N 10.5-15 Platelet Count 264 10^3/uL N 150-450 Mean Platelet Volume 7.7 um3 N 7.4-10.4 Abs Neutrophils 8.5 10^3/uL High 1.5-7.7 Abs Lymphocytes 2.1 10^3/uL N 1.0-4.8 Abs Monocytes 0.8 10^3/uL N 0-0.8 Abs Eosinophils 0.4 10^3/uL N 0-0.6 Abs Basophils 0.1 10^3/uL N 0-0.2 Abs Nucleated RBC 0 10^3/uL Granulocyte % 71.4 % N 38-83 Lymphocyte % 17.9 % Low 25-47 Monocyte % 6.8 % N 0-7 Eosinophil % 3.0 % N 0-6 Basophil % 0.9 % N 0-2 Nucleated Red Blood Cells % 0 Comp Metabolic Panel 06/11/2018 [facility] Sodium 141 mmol/L N 135-[address] [place] [address] [phone] Potassium 4.7 mmol/L N 3.5-5.0 Chloride 108 mmol/L N 101-111 Co2 Carbon Dioxide 28 mmol/L N 22-32 Anion Gap 5 mmol/L N 2-11 Glucose 181 mg/dL High 70-100 Blood Urea Nitrogen 41 mg/dL High 6-24 Creatinine 1.86 mg/dL High 0.51-0.95 BUN/Creatinine Ratio 22.0 High 8-20 Calcium 9.2 mg/dL N 8.6-10.3 Total Protein 6.8 g/dL N 6.4-8.9 Albumin 3.4 g/dL N 3.2-5.2 Globulin 3.4 g/dL N 2-4 Albumin/Globulin Ratio 1.0 N 1-3 Total Bilirubin 0.30 mg/dL N 0.2-1.0 Alkaline Phosphatase 103 U/L N 34-104 Alt 21 U/L N 7-52 Ast 20 U/L N 13-39 Egfr Non- 27.7 >60 Egfr 33.6 >60 33 Laboratory test 06/11/2018 [facility] Vitamin D 19.1 ng/mL Low 20-[address] Total 25(Oh) [place] [address] [phone] 1 Automatic Buffing Wheel Former: [id number] 2 Automatic Buffing Wheel Former: [id number] 3 Because ethnic data is not always [...] 5 Kidney failure <15 (or dialysis) 4 Extended workup not necessary. Called to Dr. Abernathy by BENITO at 1720 on 12/08/18. Pathologist notified by BENITO at 1720 on 12/08/18. OK to continue transfusions. 5 OVERLOAD Reviewed by Dorothea Abernathy MD 6 Because ethnic data is not always [...] 5 Kidney failure <15 (or dialysis) 7 Consistent with Previous Results Reported on 11/03/17 8 SEE RESULTS BELOW [id number] [facility] 11/24/18 1537 9 Because ethnic data is not always readily [...] 15-29 5 Kidney failure <15 (or dialysis) 10 Normocytic anemia. Absolute neutropenia. Reviewed by Dorothea Abernathy MD 11 SEE RESULTS BELOW [id number] [facility] 11/03/18 1315 12 Because ethnic data is not always readily [...] 15-29 5 Kidney failure <15 (or dialysis) 13 Because ethnic data is not always readily [...] 15-29 5 Kidney failure <15 (or dialysis) 14 RESULT: No apparent monoclonal protein on serum electrophoresis. Test Performed by: [address] [address] 15 Desirable: <150 Borderline High: 150-199 High: 200-499 Very High: >500 16 Desirable: <200 Borderline High: 200-239 High: >239 17 Low: <40 Desirable: 40-60 High: >60 18 Desirable: <100 Near Optimal: 100-129 Borderline High: 130-159 High: 160-189 Very High: >189 19 Because ethnic data is not always readily [...] 15-29 5 Kidney failure <15 (or dialysis) 20 SEE RESULT BELOW Name: LINDSAY BLEVINSLINE : [address]: Martell Gutiérrez NP Acct: [id number] Unit: [id number] AGE: 58 Location: [facility] Re09/23/18 SEX: F Status: REG REF SPEC: [id number] RANDEE: 09/23/18-[address] [facility] [address]: Martell Gutiérrez [employer] REQ: [id number] RECD: 09/23/18 EXPLICIT FAX#: [id number] STATUS: COMP OTHR DR: Benjamin Fontana MD _ SOURCE: URINE SPDESC: ORDERED: Urine Culture COMMENTS: FASTING 10 HOUR Copy Result to: BENJAMIN FONTANA ([id number]) [id number] Urine Source: Random Procedure Result Reported Site Urine Culture Final 09/24/18- 1625 ML No Growth (<1,000 CFU/mL) * ML - Main Lab . END OF REPORT DEPARTMENT OF PATHOLOGY, [address] [place] [address] Александр Dubose M.D. Director [facility] # [id number] [facility] Severe Sepsis and Septic Shock Management Bundle Measure requires all lactic acids initially measuring >2.0 mmol/L be repeated. 22 Because ethnic data is not always readily [...] 15-29 5 Kidney failure <15 (or dialysis) 23 SEE RESULT BELOW Name: RUTH ANN BLEVINS : [address]: Judi Culp MD Acct: [id number] Unit: [id number] AGE: 58 Location: [facility] Re09/11/18 SEX: F Status: REG REF SPEC: [id number] RANDEE: 09/11/[address] [facility] [address]: Judi Culp MD REQ: [id number] RECD: 09/11/18 STATUS: KARI CRUZ DR: Martell Gutiérrez [employer] _ SOURCE: BLOOD,LINE SPDES: ORDERED: Blood Cult Procedure Result Reported Site Aerobic Culture Bottle Final 09/16/18- 1344 ML No Growth Day 5 Anaerobic Culture Bottle Final 09/16/18- 1344 ML No Growth Day 5 * ML - Main Lab . END OF REPORT DEPARTMENT OF PATHOLOGY, [address] [place] [address] Александр Dubose M.D. Director [facility] # [id number] 24 Therapeutic target for the treatment of diabetes mellitus patients is <7% HBA1C, and in selective patients <6.0%. Please refer to [place] [employer] diabetic care guidelines for further information. 25 >100 to <200 pg/mL: likely compensated congestive heart failure (CHF) 200 to 400 pg/mL: likely moderate CHF >400 pg/mL: likely moderate to severe CHF 26 Because ethnic data is not always readily [...] 15-29 5 Kidney failure <15 (or dialysis) 27 Normal Range 180 to 914 Indeterminate Range 145 to 180 Deficient Range <145 28 In this sample, the concentration of methylmalonic acid (MMA) was minimally elevated. As the upper limit of the reference range varies in different laboratories from 0.4 to 0.6 nmol/mL. This finding could be considered normal, especially if the patient does not show other signs of vitamin B12 deficiency. ADDITIONAL INFORMATION This test was developed and its performance characteristics determined by [facility] in a manner consistent with CLIA requirements. This test has not been cleared or approved by the U.S. Food and Drug Administration. Test Performed by: [address] [address] 29 >100 to <200 pg/mL: likely compensated congestive heart failure (CHF) 200 to 400 pg/mL: likely moderate CHF >400 pg/mL: likely moderate to severe CHF 30 Because ethnic data is not always readily [...] 15-29 5 Kidney failure <15 (or dialysis) 31 [facility] Severe Sepsis and Septic Shock Management Bundle Measure requires all lactic acids initially measuring >2.0 mmol/L be repeated. 32 SEE RESULT BELOW Name: RUTH ANN BLEVINS : [address]: Nathaniel Noe MD Acct: [id number] Unit: [id number] AGE: 57 Location: [place] [address] Re06/16/18 SEX: F Status: ADM Simi SPEC: [id number] RANDEE: 06/16/[address] [facility] [address]: Brooklyn Candelario MD REQ: [id number] RECD: 06/16/18 STATUS: KARI CRUZ DR: Martell Gutiérrez [employer] _ SOURCE: URINE SPDESC: ORDERED: Urine Culture Procedure Result Reported Site Urine Culture Final 06/17/18- 0751 ML No Growth (<1,000 CFU/mL) * ML - Main Lab . END OF REPORT DEPARTMENT OF PATHOLOGY, [address] [place] [address] Александр Dubose M.D. Director [facility] # [id number] 33 Because ethnic data is not always readily [...] Kidney failure <15 (or dialysis) Procedures Date Code Description Status 11/19/2018 005153418 Diabetic Retinal Eye Exam Completed 11/11/2018 215649562 Diabetic Retinal Eye Exam Completed 10/08/2018 31486 Chemical Cautery Granulation Tissue Completed 08/01/2018 03142 Fluoroscopic Guidance For Cent Completed 08/01/2018 75458 Insertion Tunneled Cent Venous Cathr W Subcut Port 5 Completed Yrs Or Oldr 08/01/2018 41549 Insertion Tunneled Cent Venous Cathr W Subcut Port 5 Completed Yrs Or Oldr 08/01/2018 77445 Mastectomy Mod Radical Not Including Pectoralis Major Completed Muscle 08/01/2018 10524 Mastectomy Mod Radical Not Including Pectoralis Major Completed Muscle 08/01/2018 44341 Mastectomy Simple Complete Completed 08/01/2018 11035 Mastectomy Simple Complete Completed 07/31/2018 [id number] Diabetic Retinal Eye Exam Completed 07/16/2018 88332 Stress Test Completed 07/16/2018 01065 Myocardial Perfusion Imaging Tomographic (Spect) Completed Multiple Studies 07/01/2018 90123 EKG Tracing & Interpretation Completed 06/17/2018 87461 EKG, Interpretation Only Completed 06/16/2018 54504 ECHO Transthorasic Realtime 2D W Doppler & Color Flow Completed Hosp Encounters Type Date Location Provider Dx Diagnosis Office Visit 12/02/2018 [facility] Internal Chanel Frost MD Z01.818 Encounter for other 4:20p Medicine - [address] examination R12 Heartburn E11.649 Type 2 diabetes mellitus with hypoglycemia without coma H26.9 Unspecified cataract Office Visit 11/05/2018 2:20p [facility] Internal Chanel Frost C50.912 Malignant neoplasm Medicine - MD of unspecified [address] site of left female breast J45.20 Mild intermittent asthma, uncomplicated I50.32 Chronic diastolic (congestive) heart failure N18.4 Chronic kidney disease, stage 4 (severe) 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 Office Visit 10/14/2018 9:30a Wound Care Jayson Dale S21.001D Unspecified open Center AT [facility] Juan Miguel Shell wound of right breast, subsequent encounter S21.002D Unspecified open wound of left breast, subsequent encounter E11.8 Type 2 diabetes mellitus with unspecified complications Office Visit 09/23/2018 4:00p [facility] Internal Benjamin Fontana, N39.0 Urinary tract Medicine - M.DRamos infection, site [address] not specified I12.9 Hypertensive chronic kidney disease w stg 1-4/unsp chr kdny N18.4 Chronic kidney disease, stage 4 (severe) E11.22 Type 2 diabetes mellitus w diabetic chronic kidney disease Office Visit 07/10/2018 1:00p [facility] Internal Martell Gutiérrez, D50.9 Iron deficiency Medicine - [employer] anemia, [place] unspecified Z79.4 assisted (current) use of insulin E11.22 Type 2 diabetes mellitus w diabetic chronic kidney disease C50.912 Malignant neoplasm of unspecified site of left female breast 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 I25.119 Athscl heart [facility] Leeroy, DO disease of [place] FACC cor art w unsp ang pctrs Z01.810 Encounter for preprocedural cardiovascular examination N18.9 Chronic kidney disease, unspecified I50.32 Chronic diastolic (congestive) heart failure E66.8 Other obesity E11.69 Type 2 diabetes mellitus with other specified complication I12.9 Hypertensive chronic kidney disease w stg 1-4/unsp chr kdny E78.5 Hyperlipidemia, unspecified C50.412 Malig neoplasm of upper-outer quadrant of left female breast D64.9 Anemia, unspecified Office Visit 06/26/2018 10:30a [facility] Moe Marrufo, I50.31 Acute diastolic [facility] (congestive) heart failure I50.9 Heart failure, unspecified N18.4 Chronic kidney disease, stage 4 (severe) 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 diastolic [facility]ists (congestive) heart failure E11.22 Type 2 diabetes mellitus w diabetic chronic kidney disease N18.4 Chronic kidney disease, stage 4 (severe) Office Visit 06/17/2018 12:01p [facility] Tiago Paris R06.02 Shortness of Of Sim Glez M.D. breath Office Visit 06/16/2018 1:25p [facility] Curt R06.02 Shortness of Assoc,page Blanchard N.PRamos breath [facility]ists R07.9 Chest pain, unspecified M54.2 Cervicalgia R51 Headache Plan of Treatment Future Appointment(s):02/03/2019 1:40 pm - Chanel Frost MD at [facility] Internal Medicine - [address]12/02/2018 - Chanel Frost MDZ01.818 Encounter for other preprocedural [id number] HeartburnNew Medication:Ranitidine HCL 150 mg - 1 by mouth twice a day as needed for bolwrbxsrJ18.649 Type 2 diabetes mellitus with hypoglycemia without comaFollow up:3 months, 20 minH26.9 Unspecified cataract Goals 12/02/2018 - Chanel Frost MDE11.649 Type 2 diabetes mellitus with hypoglycemia without comaGoal Hemoglobin A1c is less than 7.0% in ages 18-74 Goal Hemoglobin A1c is between 7.0% and 8.0% in age over 75 Goal Blood pressure is less than 130 /85. Cholesterol should be lowered by a high or moderate-dose statin.
--- OUTSIDE RECORDS SUMMARY | 2018-12-19 11:09 | XMS REPORT | Continuity of Care Document ---
:1960 External Reference #:[id number] Author Name Westley Bernabe M.D. Address [address] [place] [address] Care Team Providers Name Role Phone Martell Gutiérrez NP Care Team Information Securities Research Analyst Unavailable Martell Gutiérrez NP Primary Care Physician Unavailable Payers Date Identification Numbers Payment Provider Subscriber Policy Number: [id number] Bret Blevins PayID: [id number] [address] [place] [address] Advance Directives Description No Information Available Problems Description No Information Family History Date Family Member(s) Observation Comments Father Heart Disease Father Cancer Father Diabetes Father High BP Father Glasses Father Cataract Mother Glasses Mother High BP Mother Cancer Mother Angina Social History Type Date Description Comments Sex Unknown ETOH Use Never used alcohol Tobacco Use Start: Unknown Patient has never smoked Smoking Status Reviewed: 12/10/18 Patient has never smoked Allergies, Adverse Reactions, Alerts Date Description Reaction Status Severity Comments 07/24/2018 Penicillin Active 07/24/2018 Iodine Active 07/24/2018 Morphine Active Medications Medication Date Status Form Strength Qnty SIG Indications Ordering Provider Ofloxacin 12/04/ Active Solution 0.3% 5ml 1 drop Gael (Ophthalmic) 2019 four Victoria, times per OD day right eye, start the day of surgery Vigamox 12/01/ Active Solution 0.5% 3ml 1 drop Westley 2019 right eye Srinivasa four M.D. times a day, start drops the morning of surgery Ketorolac 12/01/ Active Solution 0.5% 5ml 1 drops Westley Tromethamine 2018 right eye Srinivasa, twice a M.D. day Pred Forte 12/01/ Active Suspension 1% 10ml 1 drops Westley Orellana right eye Srinivasa, four M.D. times a day Tramadol HCL 00/00/ Active Tablets 50mg Take 1 Unknown 0000 Tablet By Mouth Every Day as Needed Alprazolam 0000/ Active Tablets 0.25mg Take 1 Unknown 0000 Tablet By Mouth Every Day Torsemide 00/ Active Tablets 20mg Take 2 Unknown 0000 Tablets By Mouth Twice A Day D3-50 / Active Capsules 35188Zxgr Take 1 Unknown 0000 Cap By Mouth Twice A Week Amlodipine / Active Tablets 5mg Take 1 Unknown Besylate 0000 Tablet By Mouth Every Day Methocarbamol / Active Tablets 750mg Take 1 Unknown 0000 Tablet By Mouth Every 6 Hours as Needed For Pain Humalog / Active Solution 100Unit/ML 10 units Unknown 0000 Cartridge three times a day before meals or per sliding scale Femara / Active Tablets 2.5mg Unknown 0000 Iron 00/ Active Tablets ER Unknown 0000 Aspir-81 / Active Tablets DR 81mg 1 by Unknown 0000 mouth every day Immunizations Description No Information Available Vital Signs Date Vital Result Comment 12/10/2018 9:53am Intraocular Pressure Right Eye 16 mmHg 11/14/2018 8:15am Intraocular Pressure Right Eye 16 mmHg Intraocular Pressure Left Eye 16 mmHg 07/24/2018 10:17am Intraocular Pressure Right Eye 16 mmHg Intraocular Pressure Left Eye 16 mmHg Results Description No Information Available Procedures Date Code Description Status 11/14/2018 59943 Ophthalmic Biometry By Partial Coherence Interferometry Completed W/Intra 11/14/2018 77676 Eye Exam Est Intermediate Completed 07/24/2018 67651 Fundus Photography W/Interpretation & Report Completed 07/24/2018 94232 Eye Exam New Comprehensive Completed Encounters Description No Information Available Plan of Treatment Future Appointment(s):12/23/2018 9:05 am - Westley Bernabe M.D. at Main Izgaor8801/30/2019 9:30 am - Gael Victoria OD at Main Bsplwb5912/30/2018 9:00 am - Gael Victoria, OD at Main Xunvvp9912/24/2018 8:30 am - Westley Bernabe M.D. at Main Mzcbbu6512/10/2018 - Westley Bernabe M.D.Z48.89 Encounter for other specified surgical aftercareComments:The patient was seen post-operatively one day following surgery. The patient was advised that the eye tolerated the surgery well without complications. Patient was given eye drop schedule and implant card.The patient was told to wear an eye shield QHS for one week and sunglasses daily. The patient was also advised to contact us immediately if new symptoms or visual changes are noted such as pain, worsening redness, flashes, floaters or decrease in vision.Follow up:The patient is to return in one week to follow up after cataract surgery and sooner if needed.
[2018-12-19] MEDS ORDERED: NS 0.9% 1000 ML** 1,000 ML IV ONE (12:09)
[2018-12-19] MEDS ORDERED: guaiFENesin/CODIEN 100MG-10MG* 5 ML UDC PO ONE (12:09)
--- NOTE | 2018-12-19 12:10 | ED ---
Influenza-Like Illness - HPI Summary HPI Summary: Pt is a 58 y/o F presenting to the ED with a chief complaint of flu-like symptoms. She finished chemotherapy 10 days ago, developed diarrhea which lasted about one week, as well as a cough, chest congestion, pain in her ribs, and sore throat, onset about 3-4 days ago. - History of Current Complaint Chief Complaint: EDFluSymptoms Time Seen by Provider: 12/19/18 11:55 Hx Obtained From: Patient Onset/Duration: Gradual Onset, Lasting Days, Still Present Severity: Moderate Associated Signs & Symptoms: Cough, Sore Throat, Nasal Congestion, Diarrhea - Allergy/Home Medications Allergies/Adverse Reactions: Allergies Allergy/AdvReac Type Severity Reaction Status Date / Time Penicillins Allergy Severe Hives Verified 12/19/18 10:55 shellfish derived Allergy Severe Hives/Diff. Verified 12/19/18 10:55 Breathing/I tching iodine Allergy Hives Verified 12/19/18 10:55 latex Allergy Rash Verified 12/19/18 10:55 morphine AdvReac Anxiety Verified 12/19/18 10:55 Home Medications: Home Medications Albuterol inh POWDER (NF) [Proair Respiclick] 2 puff INH Q4HR PRN 12/19/18 [ History Confirmed 12/19/18] Nitroglycerin TAB 0.4 MG* 0.4 mg SL Q5M PRN 12/19/18 [History Confirmed 12/19/18 ] Ranitidine TAB (NF) [Zantac TAB (NF)] 150 mg PO BID 12/19/18 [History Confirmed 12/19/18] Torsemide TAB* [Demadex*] 20 mg PO DAILY 12/19/18 [History Confirmed 12/19/18] PMH/Surg Hx/FS Hx/Imm Hx Previously Healthy: No Endocrine/Hematology History: Reports: Hx Diabetes, Other Endocrine/ Hematological Disorders - NEGATIVE: blood clot Denies: Hx Bone Marrow Disease, Hx Sickle Cell Disease, Hx Anemia Cardiovascular History: Reports: Hx Congestive Heart Failure, Hx Hypertension Denies: Hx Aneurysm, Hx Angina, Hx Angioplasty, Hx Auto Implanted Cardiovert Defib, Hx Cardiac Arrest, Hx Cardiomegaly, Hx Congenital Heart Disease, Hx Coronary Artery Disease, Hx Deep Vein Thrombosis, Hx Embolism, Hx Pacemaker/ICD , Other Cardiovascular Problems/Disorders Respiratory History: Reports: Hx Asthma Denies: Hx Chronic Obstructive Pulmonary Disease (COPD), Other Respiratory Problems/Disorders GI History: Reports: Other GI Disorders - Constipation History: Reports: Hx Kidney Stones - 5 yrs ago, Hx Renal Disease - Stage 4 Denies: Other Problems/Disorders Musculoskeletal History: Reports: Hx Arthritis - knees and back Denies: Other Musculoskeletal History Sensory History: Reports: Hx Contacts or Glasses Denies: Hx Cataracts, Hx Eye Injury, Hx Eye Prosthesis, Hx Glaucoma, Hx Legally Blind, Hx Macular Degeneration, Hx Vision Problem, Hx Deafness, Hx Hearing Aid, Hx Hearing Problem, Other Sensory Impairments Opthamlomology History: Reports: Hx Contacts or Glasses Denies: Hx Cataracts, Hx Eye Injury, Hx Eye Prosthesis, Hx Glaucoma, Hx Legally Blind, Hx Macular Degeneration, Hx Vision Problem, Other Sensory Impairments Neurological History: Reports: Hx Headaches - percocet, Hx Migraine - percocet, Hx Nerve Disease - neuropathy aydin feet Denies: Other Neuro Impairments/Disorders Psychiatric History: Reports: Hx Anxiety - xanax, Hx Depression - Patient is currently having issues of depression related to her cancer dx. Denies: Hx Panic Disorder, Other Psychiatric Issues/Disorders - Cancer History Cancer Type, Location and Year: Breast cancer (left) Hx Hematologic Symptoms: No Hx Chemotherapy: Yes - Oral Hx Radiation Therapy: No Hx Palliative Cancer Treatment: No - Surgical History Surgery Procedure, Year, and Place: Gallbalder removed 30 years ago, POWER PORT PLACEMENT, BILATERAL MASTECTOMY WITH LEFT AXILLARY DISECTION Hx Anesthesia Reactions: No Infectious Disease History: No Infectious Disease History: Denies: Hx Clostridium Difficile, Hx Hepatitis, Hx Human Immunodeficiency Virus (HIV), Hx of Known/Suspected MRSA, Hx Shingles, Hx Tuberculosis, History Other Infectious Disease, Traveled Outside the [place] in Last 30 Days - Family History Known Family History: Positive: Other - Cancer - breast, lung, pancreatic - Social History Alcohol Use: None Hx Substance Use: No Substance Use Type: Reports: None Hx Tobacco Use: No Smoking Status (MU): Never Smoked Tobacco Review of Systems Positive: Fever Positive: Sore Throat, Nasal Discharge Positive: Chest Pain Positive: Shortness Of Breath, Cough Positive: Myalgia All Other Systems Reviewed And Are Negative: Yes Physical Exam - Summary Physical Exam Summary: Appearance: The patient is well-nourished in no acute distress and in no acute pain. Skin: The skin is warm and dry and skin color reflects adequate perfusion HEENT: The head is normocephalic and atraumatic. The pupils are equal and reactive. The conjunctivae are clear and without drainage. Nasal congestion. Mouth reveals moist mucous membranes and the throat is without erythema and exudate. The external ears are intact. The ear canals are patent and without drainage. The tympanic membranes are intact. Neck: The neck is supple with full range of motion and non-tender. There are no carotid bruits. There is no neck vein distension. Respiratory: Chest is non-tender. Lungs are clear to auscultation and breath sounds are symmetrical and equal. Coughing paroxysmally. Cardiovascular: Heart is regular rate and rhythm. There is no murmur or rub auscultated. There is no peripheral edema and pulses are symmetrical and equal. Abdomen: The abdomen is soft and non-tender. There are normal bowel sounds heard in all four quadrants and there is no organomegaly palpated. Musculoskeletal: There is no back tenderness noted. Extremities are non-tender with full range of motion. There is good capillary refill. There is no peripheral edema or calf tenderness elicited. Neurological: Patient is alert and oriented to person, place and time. The patient has symmetrical motor strength in all four extremities. Cranial nerves are grossly intact. Deep tendon reflexes are symmetrical and equal in all four extremities. Psychiatric: The patient has an appropriate affect and does not exhibit any anxiety or depression. Triage Information Reviewed: Yes Vital Signs On Initial Exam: Initial Vitals Temp Pulse Resp BP Pulse Ox 100.0 F 85 20 141/64 94 12/19/18 10:46 12/19/18 10:46 12/19/18 10:46 12/19/18 10:46 12/19/18 10:46 Vital Signs Reviewed: Yes Diagnostics - Vital Signs Vital Signs Temp Pulse Resp BP Pulse Ox 12/19/18 10:46 100.0 F 85 20 141/64 94 - Laboratory Result Diagrams: 12/19/18 12:51 12/19/18 12:51 Lab Statement: Any lab studies that have been ordered have been reviewed, and results considered in the medical decision making process. - Radiology Chest x-ray Radiology Interpretation Completed By: Radiologist Summary of Radiographic Findings: No active cardiopulmonary disease. ED physician has reviewed this report. Flu Symptom Course/Dx - Course Course Of Treatment: Ms. Blevins presented 10 days after chemotherapy with flulike symptoms. She initially had diarrhea and crampy abdominal pain after her chemotherapy but that gradually resolved and then in the last 2-3 days she' s had diffuse myalgias and arthralgias, a cough and fever. She looked miserable on presentation but was nontoxic and her vital signs were good. She was given IV fluids here while workup was obtained. Her labs were unchanged from her baseline. Her influenza swab was negative and likewise her chest x- ray. I discussed it with oncology and we'll treat her symptomatically with oncology follow-up first the week. - Diagnoses Provider Diagnoses: Viral syndrome Discharge - Sign-Out/Discharge Documenting (check all that apply): Patient Departure - Discharge Patient Received Moderate/Deep Sedation with Procedure: No - Discharge Plan Condition: Fair Disposition: HOME Prescriptions: Codeine Phosphate/Guaifenesin [Guaiatussin AC Liquid] 5 ml PO Q4HR #120 ml MDD 30 cc Patient Education Materials: Viral Syndrome (ED) Referrals: Twin Gamez MD [Medical Doctor] - 3 Days Additional Instructions: Follow up with Dr. Gamez on Saturday. Return to ED for any new or worsening symptoms. - Billing Disposition and Condition Condition: FAIR Disposition: Home - Attestation Statements Document Initiated by Scribe: Yes Documenting Scribe: Nieves Li Provider For Whom Sharmila is Documenting (Include Credential): Ousmane Araujo MD. Scribe Attestation: Nieves Quiroz, scribed for Ousmane Araujo MD. on 12/19/18 at 2221. Scribe Documentation Reviewed: Yes Provider Attestation: The documentation as recorded by the Nieves franklin accurately reflects the service I personally performed and the decisions made by me, Ousmane Araujo MD. Status of Scribe Document: Viewed
[2018-12-19 13:06] LABS: Hematocrit 27 % (35-47); Hemoglobin 9.2 g/dl (12.0-16.0); Mean Corpuscular HGB Conc 34 g/dl (31-36); Mean Corpuscular Hemoglobin 29 pg (27-31); Mean Corpuscular Volume 86 fL (80-97); Mean Platelet Volume 8.1 fL (7.4-10.4); Platelet Count 127 10^3/ul (150-450); Red Blood Count 3.21 10^6/ul (4.00-5.40); Red Cell Distribution Width 15 % (10.5-15); White Blood Count 8.9 10^3/ul (3.5-10.8)
[2018-12-19 13:26] LABS: Albumin 3.1 g/dL (3.2-5.2); Albumin/Globulin Ratio 0.9 (1-3); BUN/Creatinine Ratio 15.4 (8-20); C Reactive Protein 137.96 mg/L (<8.01); Calcium 8.7 mg/dL (8.6-10.3); EGFR African American 25.7 (>60); EGFR Non-African American 21.2 (>60); Globulin 3.3 g/dL (2-4); Total Bilirubin 0.3 mg/dL (0.2-1.0); Total Protein 6.4 g/dL (6.4-8.9)
[2018-12-19 13:44] LABS: Influenza A Molecular NEGATIVE (Negative); Influenza B Molecular NEGATIVE (Negative)
[2018-12-19 14:09] LABS: Immature Granulocytes 7 % (0-9); Lymphocytes % 5 %; Metamyelocytes % 3 % (0-2); Monocytes % 14 %; Neutrophil % 73 %
[2018-12-19 14:11] LABS: ABS Neutrophils 7.1 10^3/ul (1.5-7.7)
[2018-12-19 14:12] LABS: ABS Eosinophils 0.08 10^3/ul (0-0.6)
[2018-12-19 15:49] LABS: Urine Appearance Cloudy; Urine Bacteria Absent (Absent); Urine Bilirubin Negative (Negative); Urine Blood 2+ (Negative); Urine Color Yellow; Urine Glucose 1+(50 mg/dL) (Negative); Urine Ketones Trace (Negative); Urine Nitrite Negative (Negative); Urine Protein 3+(>=500 mg/dL) (Negative); Urine Red Blood Cell 2+(6-10/hpf) (Absent); Urine Specific Gravity 1.015 (1.010-1.030); Urine Squamous Epithelial Cell Present (Absent); Urine Urobilinogen Negative (Negative); Urine White Blood Cell Trace(0-5/hpf) (Absent)
[2018-12-19 17:11] VITALS: BP 164/70
== END 2018-12-19 17:12 | disposition home or self-care (01) ==
LOC: ED 10:44
DX: B34.9 Viral infection, unspecified (principal); I50.9 Heart failure, unspecified; E11.8 Type 2 diabetes mellitus with unspecified complications; I10 Essential (primary) hypertension; J45.909 Unspecified asthma, uncomplicated; Z87.442 Personal history of urinary calculi; F32.9 Major depressive disorder, single episode, unspecified; F41.9 Anxiety disorder, unspecified; Z85.3 Personal history of malignant neoplasm of breast
CPT/HCPCS: 36415; 71045; 80053; 81003; 81015; 83605; 85025; 86140; 87040; 87086; 96360; 96361; 99284; A9270-GY; J1642

== ENCOUNTER → 2018-12-23 08:40 | Day surgery (SDC) | payer OTHER ==
[~2018-12-23 08:40] MED LIST changes: +Acetaminophen TAB* 325 MG PO PRN; -Buffered Lidocaine 0.9% SYRIN* 5 ML/SYR SYRINGE INTRADERM ONE; -Buffered Lidocaine 0.9% SYRIN* 5 ML/SYR SYRINGE ONE; +Buffered Lidocaine 1% SYRIN* 1 ML/SYRINGE INTRADERM ONE; -Famotidine IV* 10 MG/ML 2 ML (20 mg) IV ONE; -Famotidine IV* 10 MG/ML 2 ML (20 mg) ONE; -Heparin VIAL(*) 5000 UNITS/ML VIAL (FIVE THOUSAND) ONE; -Scopolamine 1.5 mg* PATCH ONE; -Scopolamine 1.5 mg* PATCH TRANSDERM ONE; -ceFAZolin 2 GM in NS PREMIX(*) 2 GM/100 ML BAG IVPB ONE
== END | disposition home or self-care (01) ==
LOC: OREAST 08:40
PROVIDERS: ATTEND Ophthalmology
DX: H25.12 Age-related nuclear cataract, left eye (principal); Z53.9 Procedure and treatment not carried out, unspecified reason